=== PATIENT | female | born 1930 | race Caucasian/White ===

== ENCOUNTER 2017-02-25 20:02 | Inpatient (IN) | payer MEDICARE, OTHER, MEDICAID ==
--- NOTE | 2017-02-25 20:11 | EDM.PDOC ---
ED HPI GENERAL MEDICAL PROBLEM - General Stated Complaint: ASPARATION Time Seen by Provider: 02/25/17 20:03 Source of Information: Reports: EMS, Custodial Records History Limitations: Reports: Respiratory Distress - History of Present Illness INITIAL COMMENTS - FREE TEXT/NARRATIVE: This is an 87-year-old female. She comes from a long term and [place]. Apparently tonight one of the family was trying to get her to drink through a straw some water and she aspirated this occurred around 6:30 PM. Since that time she's been having increasing respiratory distress with wheezing and some mild stridor. She has a gastric tube that she is fed by and really is not to have any by mouth fluids. She is on a simple mask at 6 L/m and her pulse ox is 98% but she is obviously struggling to breathe. According to EMS she is a DNR. Patient can tell me that she is having a hard time breathing but she can't add much to the history at this time. - Related Data Allergies Allergy/AdvReac Type Severity Reaction Status Date / Time amoxicillin [From Augmentin] Allergy Other Verified 02/25/17 20:13 clavulanic acid Allergy Other Verified 02/25/17 20:13 [From Augmentin] Home Meds: Home Meds Acetaminophen 325 mg PO Q4HR PRN 02/25/17 [History] Amino Ac/Protein Hydr/Whey Pro [Prosource Tf Liquid Packet] 1 oz .ROUTE BEDTIME 02/25/17 [History] Amiodarone [Cordarone] 200 mg GTUBE DAILY 02/25/17 [History] Aspirin 81 mg GTUBE DAILY 02/25/17 [History] Bisacodyl [Dulcolax] 10 mg RECTAL ASDIRECTED PRN 02/25/17 [History] Clopidogrel [Plavix] 75 mg GTUBE DAILY 02/25/17 [History] Dimethicone/Colloidal Oatmeal [Aveeno Daily Moisturizing Lot] 1 dose TOP ASDIRECTED 02/25/17 [History] Docusate Sodium [Diocto] 10 ml GTUBE BID 02/25/17 [History] Gabapentin 100 mg PO BEDTIME 02/25/17 [History] Lactose-Reduced Food/Fiber [Isosource 1.5 Marcello Liquid] 250 ml GTUBE TID 02/25/17 [History] Lidocaine HCl [Aspercreme] 1 dose TOP BID PRN 02/25/17 [History] Magnesium Hydroxide [Milk of Magnesia] 30 ml GTUBE ASDIRECTED PRN 02/25/17 [ History] Menthol/Zinc Oxide [Calmoseptine] 1 dose TOP ASDIRECTED PRN 02/25/17 [History] Metoprolol Tartrate 100 mg GTUBE BID 02/25/17 [History] Mupirocin Cream [Bactroban Crm] 1 dose TOP ASDIRECTED PRN 02/25/17 [History] Nystatin [Nyamyc] 1 dose TOP ASDIRECTED PRN 02/25/17 [History] Ondansetron [Zofran] 8 mg GTUBE ASDIRECTED PRN 02/25/17 [History] Triamcinolone Acetonide [Triamcinolone Acetonide 0.1% Crm] 1 dose TOP BID [History] Trolamine Salicylate [Aspercreme] 1 dose TOP ASDIRECTED PRN 02/25/17 [History] atorvaSTATin [Lipitor] 10 mg GTUBE DAILY 02/25/17 [History] cloNIDine [Catapres] 0.2 mg GTUBE BID 02/25/17 [History] ED ROS GENERAL - Review of Systems Review Of Systems: Unable To Obtain Respiratory: Reports: Shortness of Breath, Wheezing ED EXAM, GENERAL - Physical Exam Exam: See Below Exam Limited By: Respiratory Distress General Appearance: Alert, Moderate Distress, Other (Patient appears to be chronically ill) Ears: Normal External Exam Nose: Normal Inspection Throat/Mouth: No: No Airway Compromise Head: Atraumatic Neck: Other (Listening to the neck it appears that most of her noise that she is making when she breathes is coming from the larynx area as in mild stridor) Respiratory/Chest: Respiratory Distress, Stridor, Retractions, Other (Noted to have normal breath sounds in the right apex with some mild crackles in the left apex and crackles in the left base and decreased breath sounds in the right base , she is attempting to use accessory muscles and she uses her abdomen to exhale , with exhaling she does have some mild stridor noted) Cardiovascular: Regular Rate, Rhythm GI/Abdominal: Soft, Other (Noted gastric tube in the abdomen) Extremities: Other (She is noted to have an AKA of the left lower extremity, her right lower extremity shows chronic vascular changes, her extremities are cool to touch) Neurological: Alert Psychiatric: Anxious Skin Exam: Cool Course - Vital Signs Last Recorded V/S: Last Vital Signs Temp 95.4 F 02/25/17 20:05 Pulse 93 02/25/17 20:05 Resp 36 H 02/25/17 20:05 BP 99/89 02/25/17 20:05 Pulse Ox 99 02/25/17 20:05 - Orders/Labs/Meds Orders: Active Orders 24 hr Category Date Time Status CXR [Chest 1V Frontal] [CR] Stat Exams 02/25/17 20:03 Taken BiPAP [RESPCARE] Urgent Oth 02/25/17 20:15 Active Labs: Laboratory Tests 02/25/17 02/25/17 Range/Units 20:08 20:08 WBC 14.18 H (3.98-10.04) K/mm3 RBC 4.44 (3.98-5.22) M/mm3 Hgb 14.8 (11.2-15.7) gm/L Hct 43.7 (34.1-44.9) % MCV 98.4 H (79.4-94.8) fl MCH 33.3 H (25.6-32.2) pg MCHC 33.9 (32.2-35.5) g/dl RDW Std Deviation 57.0 H (36.4-46.3) fL Plt Count 198 (182-369) K/mm3 MPV 11.6 (9.4-12.3) fl Neut % (Auto) 81.1 H (34.0-71.1) % Lymph % (Auto) 8.7 L (19.3-51.7) % [place] % (Auto) 9.4 (4.7-12.5) % Eos % (Auto) 0.5 L (0.7-5.8) Baso % (Auto) 0.1 (0.1-1.2) % Neut # (Auto) 11.49 H (1.56-6.13) K/mm3 Lymph # (Auto) 1.23 (1.18-3.74) K/mm3 [place] # (Auto) 1.34 H (0.24-0.36) K/mm3 Eos # (Auto) 0.07 (0.04-0.36) K/mm3 Baso # (Auto) 0.02 (0.01-0.08) K/mm3 Manual Slide Review Abnormal smear Sodium 133 L (136-145) mEq/L Potassium 4.9 (3.5-5.1) mEq/L Chloride 99 (98-107) mEq/L Carbon Dioxide 25 (21-32) mEq/L Anion Gap 13.9 (5-15) BUN 28 H (7-18) mg/dL Creatinine 1.1 H (0.55-1.02) mg/dL Est Cr Clr Drug Dosing 26.86 mL/min Estimated GFR (MDRD) 47 (>60) mL/min BUN/Creatinine Ratio 25.5 H (14-18) Glucose 221 H (83-115) mg/dL Calcium 9.9 (8.5-10.1) mg/dL Total Bilirubin 0.6 (0.2-1.0) mg/dL AST 26 (15-37) U/L ALT 31 (14-59) U/L Alkaline Phosphatase 102 (46-116) U/L Total Protein 8.4 H (6.4-8.2) g/dl Albumin 2.9 L (3.4-5.0) g/dl Globulin 5.5 gm/dL Albumin/Globulin Ratio 0.5 L (1-2) Meds: Medications Discontinued Medications Generic Name Dose Route Start Last Admin Trade Name Freq PRN Reason Stop Dose Admin Ceftriaxone Sodium 1 gm/ 100 mls @ 200 mls/hr 02/25/17 21:13 02/25/17 21:42 Sodium Chloride IV 02/25/17 21:42 200 mls/hr ONETIME ONE Administration - Re-Assessments/Exams Free Text/Narrative Re-Assessment/Exam: 02/25/17 21:21 I spoke to the family which includes 3 sons regarding the patient. I believe she has some mild aspiration in the right lower lung by x-ray. The BiPAP has done wonders as far as her stridor and difficulty in breathing she seems much more at ease at this time. I spoke to Dr. Tran and he is willing to admit the patient for further evaluation and treatment due to aspiration pneumonia. 02/25/17 21:22 I did speak to the 3 sons regarding her admission. They confirm that she is a DNR. Departure - Departure Time of Disposition: :22 Disposition: Admitted As Inpatient 68 Condition: Poor Clinical Impression: Hypoxemia requiring supplemental oxygen, Shortness of breath, Stridor Aspiration pneumonia Qualifiers: Aspiration pneumonia type: unspecified Laterality: right Lung location: lower lobe of lung Qualified Code(s): J69.0 - Pneumonitis due to inhalation of food and vomit - Discharge Information ED Communication - ED Communication Date/Time Date: 02/25/17 Time Called: 21:25 - Discussed Case With (1) Discussed Case With (1): Admitting Provider Person/s Notified (1): Alfreda Tran (He will admit) - My Orders Last 24 Hours: My Active Orders 02/25/17 20:03 CXR [Chest 1V Frontal] [CR] Stat 02/25/17 20:15 BiPAP [RESPCARE] Urgent - Assessment/Plan Last 24 Hours: My Active Orders 02/25/17 20:03 CXR [Chest 1V Frontal] [CR] Stat 02/25/17 20:15 BiPAP [RESPCARE] Urgent
[2017-02-25] MEDS ORDERED: cefTRIAXone 1 GM in Sodium Chloride 0.9% 100 ML IV ONE (21:13)
[2017-02-25] MEDS ORDERED: Albuterol/Ipratropium 3.0-0.5 MG/3 ML Neb Soln ONE (22:59)
--- NOTE | 2017-02-25 23:10 | PCM.HP ---
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 Per second sources, a family member was trying to get the patient to drink/feed but she is NPO and then went on to develop acute aspiration. On presentation to the emergency department, she has increasing respiratory distress with wheezing and noted mild stridor. At that time she was on simple mask at 6 L and with an pulse ox of 98% but still struggling to breathe. Her initial workup in emergency department shows a CBC remarkable for WBC of 14.18, neutrophils of 81.1%, lymphocytes of 87.7%, and eosinophils of 0.5%. Her chemistry is significant for sodium of 133, BUN of 28, creatinine of 1.1, glucose of 221, total protein of 8.4, and albumin of 2.9. Her chest x-ray showed increased lung markings on the right but no obvious infiltrates with pending final radiology report. Patient is being admitted for aspiration syndrome. She is currently on BiPAP for treatment of her respiratory distress. She is DNR and DNI. - Related Data Allergies/Adverse Reactions: Allergies Allergy/AdvReac Type Severity Reaction Status Date / Time amoxicillin [From Augmentin] Allergy Other Verified 02/25/17 20:13 clavulanic acid Allergy Other Verified 02/25/17 20:13 [From Augmentin] Home Medications: Home Meds Acetaminophen 325 mg PO Q4HR PRN 02/25/17 [History] Amino Ac/Protein Hydr/Whey Pro [Prosource Tf Liquid Packet] 1 oz .ROUTE BEDTIME 02/25/17 [History] Amiodarone [Cordarone] 200 mg GTUBE DAILY 02/25/17 [History] Aspirin 81 mg GTUBE DAILY 02/25/17 [History] Bisacodyl [Dulcolax] 10 mg RECTAL ASDIRECTED PRN 02/25/17 [History] Clopidogrel [Plavix] 75 mg GTUBE DAILY 02/25/17 [History] Dimethicone/Colloidal Oatmeal [Aveeno Daily Moisturizing Lot] 1 dose TOP ASDIRECTED 02/25/17 [History] Docusate Sodium [Diocto] 10 ml GTUBE BID 02/25/17 [History] Gabapentin 100 mg PO BEDTIME 02/25/17 [History] Lactose-Reduced Food/Fiber [Isosource 1.5 Marcello Liquid] 250 ml GTUBE TID 02/25/17 [History] Lidocaine HCl [Aspercreme] 1 dose TOP BID PRN 02/25/17 [History] Magnesium Hydroxide [Milk of Magnesia] 30 ml GTUBE ASDIRECTED PRN 02/25/17 [ History] Menthol/Zinc Oxide [Calmoseptine] 1 dose TOP ASDIRECTED PRN 02/25/17 [History] Metoprolol Tartrate 100 mg GTUBE BID 02/25/17 [History] Mupirocin Cream [Bactroban Crm] 1 dose TOP ASDIRECTED PRN 02/25/17 [History] Nystatin [Nyamyc] 1 dose TOP ASDIRECTED PRN 02/25/17 [History] Ondansetron [Zofran] 8 mg GTUBE ASDIRECTED PRN 02/25/17 [History] Triamcinolone Acetonide [Triamcinolone Acetonide 0.1% Crm] 1 dose TOP BID [History] Trolamine Salicylate [Aspercreme] 1 dose TOP ASDIRECTED PRN 02/25/17 [History] atorvaSTATin [Lipitor] 5 mg GTUBE DAILY 02/25/17 [History] cloNIDine [Catapres] 0.2 mg GTUBE BID 02/25/17 [History] Past Medical History Cardiovascular History: Reports: Afib, Heart Failure, High Cholesterol, Hypertension, Other (See Below) Other Cardiovascular History: sick sinus syndrome Gastrointestinal History: Reports: Chronic Constipation, GERD Genitourinary History: Reports: UTI, Recurrent, Other (See Below) Other Genitourinary History: dysuria Musculoskeletal History: Reports: Back Pain, Chronic Neurological History: Reports: CVA Psychiatric History: Reports: Depression - Past Surgical History Musculoskeletal Surgical History: Reports: Amputation Other Musculoskeletal Surgeries/Procedures:: left above knee amputation Social & Family History - Tobacco Use Smoking Status *Q: Unknown Ever Smoked - Caffeine Use Caffeine Use: Reports: None H&P Review of Systems - Review of Systems: Review Of Systems: See Below General: Denies: Fever, Chills, Malaise, Weakness, Fatigue HEENT: Reports: No Symptoms Pulmonary: Reports: Shortness of Breath, Wheezing, Cough Cardiovascular: Denies: Chest Pain, Palpitations, Lightheadedness Gastrointestinal: Denies: Abdominal Pain, Nausea, Vomiting Genitourinary: Reports: No Symptoms Musculoskeletal: Reports: No Symptoms Skin: Denies: Cyanosis, Mottled, Diaphoresis, Rash, Wound Psychiatric: Denies: Confusion, Depression, Mood Lability, Anxiety, Hallucinations, Suicidal Ideation Neurological: Denies: Confusion, Pre-Existing Deficit, Difficulty Walking, Weakness, Gait Disturbance Hematologic/Lymphatic: Denies: No Symptoms Immunologic: Denies: No Symptoms Review of Systems Comment:: ROS obtained from secondary sources. She is currently on BIPAP due to respiratory distress. Exam - Exam Exam: See Below - Vital Signs Vital Signs: Last Vital Signs Temp 35.2 C 02/25/17 20:05 Pulse 93 02/25/17 20:05 Resp 36 H 02/25/17 20:05 BP 99/89 02/25/17 20:05 Pulse Ox 100 02/25/17 22:18 Weight: 72.575 kg - Exam Quality Assessment: Other (on BIPAP) General: Alert, Mild Distress HEENT: Conjunctiva Clear, EACs Clear, Hearing Intact, Pupils Equal, Pupils Reactive Neck: Supple, Trachea Midline, +2 Carotid Pulse wo Bruit, Other (No accessory muscle use) Lungs: Normal Respiratory Effort, Decreased Breath Sounds, Wheezing, Other ( Could not appreciate stridor) Cardiovascular: Regular Rate, Regular Rhythm GI/Abdominal Exam: Normal Bowel Sounds, Soft, Non-Tender, No Organomegaly, No Distention, No Abnormal Bruit, No Mass (Female) Exam: Deferred Rectal (Female) Exam: Deferred Back Exam: Normal Inspection, Decreased Range of Motion Extremities: Normal Range of Motion, Non-Tender, Normal Capillary Refill, Limited Range of Motion (Right), Other (Left AKA w/ Prosthesis; Right lower extremity noted for skin and vascualr changes) Peripheral Pulses: 2+: Dorsalis Pedis (L), Dorsalis Pedis (R) Skin: Warm, Dry, Intact Neuro Extensive - Mental Status: Other (She is currently on BIPAP) Psychiatric: Alert, Normal Mood Physical Exam Comments:: Limited physical examination. She is currently on BIPAP due to respiratory distress - Patient Data Result Diagrams: 02/26/17 08:30 02/26/17 06:33 *Q Meaningful Use (ADM) - VTE *Q VTE Criteria *Q: - Stroke *Q Stroke Criteria *Q: - AMI *Q AMI Criteria *Q: Problem List Initiated/Reviewed/Updated: Yes Orders Last 24hrs: Active Orders 24 hr Category Date Time Status Admission Status [Patient Status] [ADT] Routine ADT 02/25/17 22:16 Active Assessment/Plan Comment:: Assessment/Plan: Acute: Aspiration Syndrome - patient has Dysphagia and was given something to drink by a family member - Went into respiratory distress - Currently on BIPAP - [employer] eval and NPO - IV ATB with Rocephin/Azithromycin Pre-Renal Azotemia - Mild - IV Hydration - Monitor output and follow renal panel NPO Status 2/2 Dysphagia Chronic: Atrial Fibrillation, on DAPT HTN HLD CAD GERD Hx/o SSS Left AKA Chronic Pain PVD Dysphagia S/p GT Placement Constipation Plan: Admit to Med-Surg Routine AM Labs Resume Home Meds Consider removing BIPAP NPO and Tube feed as per PA [employer]ENT[employer]/RT/PT/OT consult SW/CM for d/c planning Aspiration/Fall Precautions DVT PPx: Lovenox subQ Code Status: DNR/DNI
[2017-02-25] MEDS ORDERED: Acetaminophen/HYDROcodone 325-5 MG Tab GTUBE PRN (23:13)
[2017-02-25] MEDS ORDERED: Acetaminophen 325 MG Tab GTUBE PRN ×2 (23:13→23:18)
[2017-02-25] MEDS ORDERED: HYDROmorphone 0.5 MG/0.5 ML Syringe IVPUSH PRN (23:13)
[2017-02-25] MEDS ORDERED: Ondansetron 4 MG/2 ML SDV IV PRN (23:13)
[2017-02-25] MEDS ORDERED: LORazepam 2 MG/ML MDV IV PRN (23:13)
[2017-02-25] MEDS ORDERED: Promethazine 12.5 MG in Sodium Chloride 0.9% 50 ML IV PRN (23:13)
[2017-02-25] MEDS ORDERED: Ondansetron 4 MG Tab.DIS GTUBE PRN (23:18)
[2017-02-25] MEDS ORDERED: MUPIROCIN TOP PRN (23:18)
[2017-02-25] MEDS ORDERED: Menthol/Zinc Oxide Ointment 3.5 GM Tube TOP PRN (23:18)
[2017-02-25] MEDS ORDERED: TROLAMINE SALICYLATE TOP PRN (23:18)
[2017-02-25] MEDS ORDERED: LIDOCAINE HCL TOP PRN (23:18)
[2017-02-25] MEDS ORDERED: Nystatin Topical Powder 15 GM Bottle TOP PRN (23:18)
[2017-02-25] MEDS ORDERED: Bisacodyl 10 MG Supp RECTAL PRN (23:18)
[2017-02-25] MEDS ORDERED: Magnesium Hydroxide 400 MG/5 ML Susp 30 ML Cup GTUBE PRN (23:18)
[2017-02-25] MEDS ORDERED: Metoprolol Tartrate 5 MG/5 ML SDV IVPUSH PRN (23:23)
[2017-02-25] MEDS ORDERED: hydrALAZINE 20 MG/ML SDV IVPUSH PRN (23:23)
[2017-02-25] MEDS ORDERED: LORazepam 2 MG/ML MDV IVPUSH PRN (23:23)
[2017-02-25] MEDS ORDERED: Azithromycin 500 MG in Sodium Chloride 0.9% 250 ML IV ONE (23:26)
[2017-02-25] MEDS ORDERED: COLLOIDAL OATMEAL TOP SCH (23:30)
[2017-02-25] MEDS ORDERED: DIMETHICONE TOP SCH (23:30)
[2017-02-26] MEDS: Dextrose 5%-0.45% NaCl 1,000 ML IV SCH ×2 (00:31→09:07)
[2017-02-26] MEDS: Albuterol/Ipratropium 3.0-0.5 MG/3 ML Neb Soln NEB PRN ×3 (06:20→21:48)
--- NOTE | 2017-02-26 07:59 | PCM.PN ---
- General Info Date of Service: 02/26/17 Admission Dx/Problem (Free Text): Admission Diagnosis/Problem Admission Diagnosis/Problem Aspiration pneumonia Subjective Update: Follow Up Functional Status: Reports: Pain Controlled, Urinating. Denies: New Symptoms - Review of Systems General: Denies: Fever, Weakness, Fatigue, Malaise HEENT: Reports: No Symptoms Pulmonary: Denies: Shortness of Breath Cardiovascular: Denies: Chest Pain Gastrointestinal: Denies: Abdominal Pain, Nausea, Vomiting Genitourinary: Reports: No Symptoms Skin: Denies: Cyanosis, Jaundice, Mottled, Pallor Neurological: Reports: Difficulty Walking, Gait Disturbance. Denies: Confusion , Weakness Psychiatric: Denies: Depression, Mood Lability, Anxiety, Agitation, Cravings, Hallucinations, Suicidal Ideation Systems Review Comment:: No significant overnight or acute issues. She wants to go home now. [employer] eileen just completed. She is now on 1L NC sating at 92-95% - Patient Data Vitals - Most Recent: Last Vital Signs Temp 36.7 C 02/26/17 04:10 Pulse 81 02/26/17 04:10 Resp 24 H 02/26/17 04:10 BP 107/49 L 02/26/17 04:10 Pulse Ox 99 02/26/17 06:20 Weight - Most Recent: 72.575 kg I&O - Last 24 Hours: Intake & Output 02/25/17 02/26/17 02/26/17 22:59 06:59 14:59 Intake Total 706 Balance 706 Lab Results Last 24 Hours: Laboratory Results - last 24 hr 02/25/17 Range/Units 23:09 MRSA (PCR) Positive H Med Orders - Current: Current Medications Acetaminophen (Tylenol) 650 mg GTUBE Q4H PRN PRN Reason: Pain (Mild 1-3)/fever Acetaminophen (Tylenol) 325 mg GTUBE Q4H PRN PRN Reason: Pain Hydrocodone Bitart/Acetaminophen (Hardaway 325-5 Mg) 1 tab GTUBE Q4H PRN PRN Reason: Pain (moderate 4-6) Albuterol/Ipratropium (Duoneb 3.0-0.5 Mg/3 Ml) 3 ml NEB Q4H PRN PRN Reason: Shortness Of Breath/wheezing Last Admin: 02/26/17 06:20 Dose: 3 ml Amiodarone HCl (Cordarone) 200 mg GTUBE DAILY [facility] Aspirin (Aspirin) 81 mg GTUBE DAILY [facility] Bisacodyl (Dulcolax) 10 mg RECTAL ASDIRECTED PRN PRN Reason: Constipation Clonidine HCl (Catapres) 0.2 mg GTUBE BID [facility] Clopidogrel Bisulfate (Plavix) 75 mg .XX DAILY [facility] Docusate Sodium (Colace 50 Mg/5 Ml Liquid) 100 mg GTUBE BID [facility] Enoxaparin Sodium (Lovenox) 30 mg SUBCUT DAILY [facility] Gabapentin (Neurontin) 100 mg GTUBE BEDTIME [facility] Hydralazine HCl (Apresoline) 10 mg IVPUSH Q4H PRN PRN Reason: Hypertension Hydromorphone HCl (Dilaudid) 0.25 mg IVPUSH Q2H PRN PRN Reason: Pain (severe 7-10) Dextrose/Sodium Chloride (Dextrose 5%-1/2 Ns) 1,000 mls @ 125 mls/hr IV ASDIRECTED [facility] Last Admin: 02/26/17 00:31 Dose: 125 mls/hr Promethazine HCl 12.5 mg/ (Sodium Chloride) 50.5 mls @ 100 mls/hr IV Q6H PRN PRN Reason: Nausea/Vomiting Azithromycin 500 mg/ Sodium (Chloride) 250 mls @ 250 mls/hr IV Q24H [facility] Ceftriaxone Sodium 1 gm/ (Sodium Chloride) 100 mls @ 200 mls/hr IV Q24H [facility] Lorazepam (Ativan) 0.5 mg IV Q4H PRN PRN Reason: Anxiety Lorazepam (Ativan) 2 mg IVPUSH Q4H PRN PRN Reason: Seizures Magnesium Hydroxide (Milk Of Magnesia) 30 ml GTUBE ASDIRECTED PRN PRN Reason: Constipation Magnesium Sulfate (Pharmacy To Dose - Magnesium Replacement) 1 dose .XX ASDIRECTED [facility] Metoprolol Tartrate (Lopressor) 100 mg GTUBE BID [facility] Metoprolol Tartrate (Lopressor) 5 mg IVPUSH Q4H PRN PRN Reason: Tachycardia Non-Formulary Medication (Amino Ac/Protein Hydr/Whey Pro [Prosource Tf Liquid Packet]) 1 oz .ROUTE BEDTIME [facility] Non-Formulary Medication (Dimethicone/Colloidal Oatmeal [Aveeno Daily Moisturizing Lot]) 1 dose TOP ASDIRECTED [facility] Non-Formulary Medication (Lactose-Reduced Food/Fiber [Isosource 1.5 Marcello Liquid] ) 250 ml GTUBE TID [facility] Non-Formulary Medication (Lidocaine Hcl [Aspercreme]) 1 dose TOP BID PRN PRN Reason: Other Non-Formulary Medication (Menthol/Zinc Oxide) 1 dose TOP ASDIRECTED PRN PRN Reason: Other Non-Formulary Medication (Mupirocin Cream) 1 dose TOP ASDIRECTED PRN PRN Reason: Other Non-Formulary Medication (Ondansetron) 8 mg GTUBE ASDIRECTED PRN PRN Reason: nausea Non-Formulary Medication (Trolamine Salicylate [Aspercreme]) 1 dose TOP ASDIRECTED PRN PRN Reason: Pain Nystatin (Nystop) gm TOP ASDIRECTED PRN PRN Reason: Rash Ondansetron HCl (Zofran) 4 mg IV Q6H PRN PRN Reason: Nausea/Vomiting Pantoprazole Sodium (Protonix Iv) 40 mg IV Q12HR [facility] Potassium Chloride (Pharmacy To Dose - Potassium Replacement) 1 dose .XX ASDIRECTED [facility] Simvastatin (Zocor) 10 mg GTUBE BEDTIME [facility] Triamcinolone Acetonide (Triamcinolone Acetonide 0.1% Crm) 0 gm TOP BID [facility] Discontinued Medications Albuterol/Ipratropium (Duoneb 3.0-0.5 Mg/3 Ml) Confirm Administered Dose 3 ml .ROUTE .STK-MED ONE Stop: 02/25/17 23:00 Last Admin: 02/25/17 23:07 Dose: 3 ml Ceftriaxone Sodium 1 gm/ (Sodium Chloride) 100 mls @ 200 mls/hr IV ONETIME ONE Stop: 02/25/17 21:42 Last Admin: 02/25/17 21:42 Dose: 200 mls/hr Azithromycin 500 mg/ Sodium (Chloride) 250 mls @ 250 mls/hr IV ONETIME ONE Stop: 02/26/17 00:25 Last Admin: 02/26/17 00:31 Dose: 250 mls/hr - Exam Quality Assessment: Supplemental Oxygen General: Alert, Cooperative, No Acute Distress HEENT: Pupils Equal, Pupils Reactive, Mucous Membr. Moist/[place] Neck: Supple, Trachea Midline Lungs: Normal Respiratory Effort, Decreased Breath Sounds, Rales Cardiovascular: Regular Rate, Regular Rhythm GI/Abdominal Exam: Normal Bowel Sounds, Soft, Non-Tender, No Organomegaly, No Distention, No Mass, Pelvis Stable, Rebound (Female) Exam: Deferred Back Exam: Normal Inspection, Decreased Range of Motion Extremities: Normal Range of Motion, Non-Tender, Normal Capillary Refill, Other (left AKA) Peripheral Pulses: 1+: Posterior Tibial (R), 2+: Dorsalis Pedis (R) Skin: Warm, Dry, Intact Neurological: No New Focal Deficit. No: Normal Gait Psy/Mental Status: Alert, Normal Affect, Normal Mood - Problem List Review Problem List Initiated/Reviewed/Updated: Yes - My Orders Last 24 Hours: My Active Orders 02/25/17 23:13 Height and Weight [RC] DAILY Intake and Output [RC] Oxygen Therapy [RC] PRN Up With Assistance [RC] Up ad Eleanor [RC] VTE/DVT Education [RC] PER UNIT ROUTINE Vital Signs [RC] Q4HR Acetaminophen [Tylenol] 650 mg GTUBE Q4H PRN Acetaminophen/HYDROcodone [Hardaway 325-5 MG] 1 tab GTUBE Q4H PRN Albuterol/Ipratropium [DuoNeb 3.0-0.5 MG/3 ML] 3 ml NEB Q4H PRN HYDROmorphone [Dilaudid] 0.25 mg IVPUSH Q2H PRN LORazepam [Ativan] 0.5 mg IV Q4H PRN Ondansetron [Zofran] 4 mg IV Q6H PRN Promethazine [Phenergan] 12.5 mg Sodium Chloride 0.9% [Normal Saline] 50 ml IV Q6H Resuscitation Status Routine 02/25/17 23:14 Pulse Oximetry [RC] PRN 02/25/17 23:15 Dextrose 5%-0.45% NaCl [Dextrose 5%-1/2 NS] 1,000 ml IV ASDIRECTED 02/25/17 23:16 RT Aerosol Therapy [RC] ASDIRECTED 02/25/17 23:17 Consult to Case Management [CONS] Routine Consult to [employer]p Sales [CONS] Routine Consult to Spiritual Care [CONS] Routine OT Evaluation and Treatment [CONS] Routine PT Evaluation and Treatment [CONS] Routine Respiratory Care Assess and Treatment [CONS] Routine [employer]CE[employer]PORT [employer]ENT Evaluation and Treatment [CONS] Routine 02/25/17 23:18 Acetaminophen [Tylenol] 325 mg GTUBE Q4H PRN Bisacodyl [Dulcolax] 10 mg RECTAL ASDIRECTED PRN Lidocaine HCl [Aspercreme] 1 dose TOP BID PRN Magnesium Hydroxide [Milk of Magnesia] 30 ml GTUBE ASDIRECTED PRN Menthol/Zinc Oxide 1 dose TOP ASDIRECTED PRN Mupirocin Cream 1 dose TOP ASDIRECTED PRN Nystatin [Nystop] DOSE gm TOP ASDIRECTED PRN Ondansetron 8 mg GTUBE ASDIRECTED PRN Trolamine Salicylate [Aspercreme] 1 dose TOP ASDIRECTED PRN 02/25/17 23:23 LORazepam [Ativan] 2 mg IVPUSH Q4H PRN Metoprolol Tartrate [Lopressor] 5 mg IVPUSH Q4H PRN hydrALAZINE [Apresoline] 10 mg IVPUSH Q4H PRN 02/25/17 23:25 IS (RT) [RT Incentive Spirometry] [RC] ASDIRECTED 02/25/17 23:30 Dimethicone/Colloidal Oatmeal [Aveeno Daily Moisturizing Lot] 1 dose TOP ASDIRECTED Magnesium Rep Pharmacy to Dose [Pharmacy to Dose - Magnesium Replacement] 1 dose .XX ASDIRECTED Potassium Rep Pharmacy to Dose [Pharmacy to Dose - Potassium Replacement] 1 dose .XX ASDIRECTED 02/25/17 Dinner Nothing per Oral Now Diet [DIET] 02/26/17 06:33 BASIC METABOLIC PANEL,BMP [CHEM] AM C-REACTIVE PROTEIN [CHEM] AM CBC WITH AUTO DIFF [HEME] AM MAGNESIUM [CHEM] AM 02/26/17 09:00 Amiodarone [Cordarone] 200 mg GTUBE DAILY Aspirin 81 mg GTUBE DAILY Clopidogrel [Plavix] 75 mg .XX DAILY Docusate Sodium [Colace 50 MG/5 ML Liquid] 100 mg GTUBE BID Enoxaparin [Lovenox] 30 mg SUBCUT DAILY Lactose-Reduced Food/Fiber [Isosource 1.5 Marcello Liquid] 250 ml GTUBE TID Metoprolol Tartrate [Lopressor] 100 mg GTUBE BID Pantoprazole [ProTONIX IV] 40 mg IV Q12HR Triamcinolone Acetonide [Triamcinolone Acetonide 0.1% Crm] 0 gm TOP BID cloNIDine [Catapres] 0.2 mg GTUBE BID 02/26/17 20:00 Azithromycin [Zithromax] 500 mg Sodium Chloride 0.9% [Normal Saline] 250 ml IV Q24H 02/26/17 21:00 Amino Ac/Protein Hydr/Whey Pro [Prosource Tf Liquid Packet] 1 oz .ROUTE BEDTIME Gabapentin [Neurontin] 100 mg GTUBE BEDTIME Simvastatin [Zocor] 10 mg GTUBE BEDTIME cefTRIAXone [Rocephin] 1 gm Sodium Chloride 0.9% [Normal Saline] 100 ml IV Q24H 02/26/17 Breakfast Tube Feeding Adult Diet [DIET] 02/27/17 05:11 BASIC METABOLIC PANEL,BMP [CHEM] AM C-REACTIVE PROTEIN [CHEM] AM CBC WITH AUTO DIFF [HEME] AM 02/28/17 05:11 BASIC METABOLIC PANEL,BMP [CHEM] AM C-REACTIVE PROTEIN [CHEM] AM CBC WITH AUTO DIFF [HEME] AM - Plan Plan:: Assessment/Plan: Acute: Aspiration Syndrome - Patient has Dysphagia and was given something to drink by a family member - Went into respiratory distress - She is no longer on BIPAP - [employer] eval done: She recommends continued NPO - IV ATB with Rocephin/Azithromycin NPO Status 2/2 Dysphagia MRSA Screening Positive - Bactroban top apply to nares BID for 5 days Resolved Pre-Renal Azotemia - Mild and now at baseline - IV Hydration - Monitor output and follow renal panel Chronic: Atrial Fibrillation, on DAPT HTN HLD CAD GERD Hx/o SSS Left AKA Chronic Pain PVD Dysphagia S/p GT Placement Constipation Plan: She is clinically stable Routine AM Labs Continue /PT/OT SW/CM for d/c planning Aspiration/Fall Precautions DVT PPx: Lovenox subQ Code Status: DNR/DNI Possible d/c in 1-2 days
[2017-02-26] MEDS ORDERED: Docusate Sodium Liquid 100 MG/10 ML UD Cup GTUBE SCH (09:00)
[2017-02-26] MEDS ORDERED: cefTRIAXone 1 GM in Sodium Chloride 0.9% 100 ML IV SCH ×2 (09:00→21:00)
[2017-02-26] MEDS ORDERED: Non-Formulary Medication 1 Each (Atorvastatin 10 MG) GTUBE SCH (09:00)
[2017-02-26] MEDS ORDERED: Magnesium Sulfate/Water 2 GM in Premix Bag 1 BAG IV ONE (10:00)
[2017-02-26] MEDS: Enoxaparin 30 MG/0.3 ML Syringe SUBCUT SCH (10:10)
[2017-02-26] MEDS: Pantoprazole 40 MG Vial IV SCH ×2 (10:15→20:12)
[2017-02-26] MEDS ORDERED: Dextrose 5%-0.9% NaCl 500 ML IV SCH (14:15)
[2017-02-26] MEDS: Amiodarone 200 MG Tab GTUBE SCH (16:24)
[2017-02-26] MEDS: Metoprolol Tartrate 100 MG Tab GTUBE SCH ×2 (16:24→20:11)
[2017-02-26] MEDS: Aspirin 81 MG Tab.Chew GTUBE SCH (16:24)
[2017-02-26] MEDS: cloNIDine 0.1 MG Tab GTUBE SCH ×2 (16:24→20:11)
[2017-02-26] MEDS: Clopidogrel 75 MG Tab SCH (16:24)
[2017-02-26] MEDS: MUPIROCIN NAS SCH ×2 (17:15→20:10)
[2017-02-26] MEDS: Triamcinolone Acetonide 0.1% Crm 15 GM Tube TOP SCH ×2 (17:16→20:12)
[2017-02-26] MEDS ORDERED: Azithromycin 500 MG in Sodium Chloride 0.9% 250 ML IV SCH (20:00)
[2017-02-26] MEDS: Docusate Sodium 100 MG Cap SCH (20:11)
[2017-02-26] MEDS ORDERED: WHEY PRO GTUBE SCH (21:00)
[2017-02-26] MEDS ORDERED: AMINO AC GTUBE SCH (21:00)
[2017-02-26] MEDS ORDERED: Simvastatin 10 MG Tab GTUBE SCH (21:00)
[2017-02-26] MEDS ORDERED: Gabapentin 100 MG Cap GTUBE SCH (21:00)
[2017-02-26] MEDS ORDERED: PROTEIN HYDR GTUBE SCH (21:00)
--- NOTE | 2017-02-26 23:58 | PCM.DCSUM1 ---
Discharge Summary - Hospital Course Brief History: This is an 87-year-old elderly white female with past medical history of tonic atrial fibrillation on aspirin and Plavix, hypertension, hyperlipidemia, coronary artery disease, GERD, history of sick sinus syndrome, left [id number] amputation, chronic pain syndrome, peripheral vascular disease, dysphagia, status post G-tube placement, and chronic constipation, who presents to the emergency department from [facility] due to acute respiratory distress. She was admitted for medical management of Aspiration Pneumonitis - Discharge Data Discharge Date: 02/27/17 Discharge Disposition: DC/Tfer to [facility] Condition: Good - Discharge Diagnosis/Problem(s) (1) Respiratory distress SNOMED Code(s): 982194163 ICD Code: R06.00 - DYSPNEA, UNSPECIFIED Status: Resolved (2) Aspiration into airway SNOMED Code(s): 830496896 ICD Code: T17.908A - UNSP FB IN RESP TRACT, PART UNSP CAUSING OTH INJURY, INIT Status: Acute Qualifiers: Encounter type: initial encounter Qualified Code(s): T17.908A - Unspecified foreign body in respiratory tract, part unspecified causing other injury, initial encounter (3) Dysphagia SNOMED Code(s): 46478797, 905489983 ICD Code: R13.10 - DYSPHAGIA, UNSPECIFIED Status: Chronic Qualifiers: Dysphagia type: unspecified Qualified Code(s): R13.10 - Dysphagia, unspecified (4) Positive result for methicillin resistant Staphylococcus aureus (MRSA) screening SNOMED Code(s): 945960665 ICD Code: A49.02 - METHICILLIN RESIS STAPH INFECTION, UNSP SITE Status: Acute (5) Aspiration pneumonitis SNOMED Code(s): 849571510 ICD Code: J69.0 - PNEUMONITIS DUE TO INHALATION OF FOOD AND VOMIT Status: Acute - Patient Summary/Data Operative Procedure(s) Performed: None Complications: None Consults: Consultations 02/25/17 23:17 Consult to Case Management [CONS] Routine Consult to Simulation Engineer [CONS] Routine Consult to Spiritual Care [CONS] Routine OT Evaluation and Treatment [CONS] Routine PT Evaluation and Treatment [CONS] Routine Respiratory Care Assess and Treatment [CONS] Routine PRESSURE STEAMER TENDER Evaluation and Treatment [CONS] Routine 02/26/17 08:10 Consult to Dietary [Consult to Blender] [CONS] Routine Labs Pending at D/C: None Recommended Follow-up Testing/Procedures: None Hospital Course: Patient was primarily admitted for aspiration pneumonitis/syndrome. She carried a history of dysphagia and nothing by mouth. Unfortunately a member of her family accidentally made her take (food/drink) orally and therefore the patient aspirated and went into respiratory distress. On presentation to the emergency department, the patient was struggling to breath even though her sats were in the upper 90s. She was put on BiPAP immediately and was provided bronchodilators to improve her respiratory distress. Her hospital course was uncomplicated. The rest of her chronic medical illness remained stable during this admission. Patient is now stable for discharge. She has been on room air since yesterday satting very well. Patient was advised to not have anything in her mouth as directed. She was further advised to follow-up with her primary care in 1 week. Patient expressed understanding and in agreement with the plans as discussed above. All questions were answered. - Patient Instructions Diet: Usual Diet as Tolerated, NPO Activity: As Tolerated Driving: Do Not Drive Showering/Bathing: May Shower Notify Provider of: Fever, Increased Pain, Nausea and/or Vomiting Other/Special Instructions: - Please take all medications as directed. - You are high risk for aspiration due to dysphagia. - Resume usp NG tube feed. - Call or follow uo with your family doctor if you have any further questions or concerns right after discharge - Discharge Plan Prescriptions/Med Rec: Azithromycin [IJD: Azithromycin] 250 mg NGTUBE ASDIRECTED #6 tab Home Medications: Home Meds Acetaminophen 325 mg PO Q4HR PRN 02/25/17 [History] Amino Ac/Protein Hydr/Whey Pro [Prosource Tf Liquid Packet] 1 oz .ROUTE BEDTIME 02/25/17 [History] Amiodarone [Cordarone] 200 mg GTUBE DAILY 02/25/17 [History] Aspirin 81 mg GTUBE DAILY 02/25/17 [History] Bisacodyl [Dulcolax] 10 mg RECTAL ASDIRECTED PRN 02/25/17 [History] Clopidogrel [Plavix] 75 mg GTUBE DAILY 02/25/17 [History] Dimethicone/Colloidal Oatmeal [Aveeno Daily Moisturizing Lot] 1 dose TOP ASDIRECTED 02/25/17 [History] Docusate Sodium [Diocto] 10 ml GTUBE BID 02/25/17 [History] Gabapentin 100 mg PO BEDTIME 02/25/17 [History] Lactose-Reduced Food/Fiber [Isosource 1.5 Marcello Liquid] 250 ml GTUBE TID 02/25/17 [History] Lidocaine HCl [Aspercreme] 1 dose TOP BID PRN 02/25/17 [History] Magnesium Hydroxide [Milk of Magnesia] 30 ml GTUBE ASDIRECTED PRN 02/25/17 [ History] Menthol/Zinc Oxide [Calmoseptine] 1 dose TOP ASDIRECTED PRN 02/25/17 [History] Metoprolol Tartrate 100 mg GTUBE BID 02/25/17 [History] Mupirocin Cream [Bactroban Crm] 1 dose TOP ASDIRECTED PRN 02/25/17 [History] Nystatin [Nyamyc] 1 dose TOP ASDIRECTED PRN 02/25/17 [History] Ondansetron [Zofran] 8 mg GTUBE ASDIRECTED PRN 02/25/17 [History] Triamcinolone Acetonide [Triamcinolone Acetonide 0.1% Crm] 1 dose TOP BID [History] Trolamine Salicylate [Aspercreme] 1 dose TOP ASDIRECTED PRN 02/25/17 [History] atorvaSTATin [Lipitor] 5 mg GTUBE DAILY 02/25/17 [History] cloNIDine [Catapres] 0.2 mg GTUBE BID 02/25/17 [History] Azithromycin [IJD: Azithromycin] 250 mg NGTUBE ASDIRECTED #6 tab 02/26/17 [Rx] Referrals: PCP,Unknown [Ordering Only Provider] - - Discharge Summary/Plan Comment DC Time >30 min.: Yes (45 mins) Discharge Summary/Plan Comment: Discharge back to [facility] Info Date of Service: 02/27/17 Admission Dx/Problem (Free Text: Admission Diagnosis/Problem Admission Diagnosis/Problem Aspiration pneumonia Functional Status: Reports: Pain Controlled, Tolerating Diet, Urinating. Denies : Ambulating, New Symptoms - Review of Systems General: Denies: Fever, Weakness, Fatigue, Malaise, Chills HEENT: Reports: No Symptoms Pulmonary: Reports: Other (no stridor). Denies: Shortness of Breath, Cough, Wheezing Cardiovascular: Denies: Chest Pain, Palpitations, Dyspnea on Exertion, Other Gastrointestinal: Denies: Abdominal Pain, Nausea, Vomiting Genitourinary: Reports: No Symptoms Musculoskeletal: Reports: No Symptoms Skin: Denies: Cyanosis, Pallor, Diaphoresis, Rash Neurological: Reports: Difficulty Walking, Gait Disturbance. Denies: Confusion , Weakness Psychiatric: Denies: Confusion, Depression, Anxiety, Agitation, Hallucinations, Suicidal Ideation Systems Review Comment: No overnight or acute issues. She is doing relatively well. She wants to back home. - Patient Data Vitals - Most Recent: Last Vital Signs Temp 36.9 C 02/26/17 16:41 Pulse 104 H 02/26/17 20:11 Resp 19 02/26/17 16:41 BP 135/87 02/26/17 20:11 Pulse Ox 99 02/26/17 21:49 Weight - Most Recent: 72.575 kg I&O - Last 24 hours: Intake & Output 02/26/17 02/26/17 02/27/17 14:59 22:59 06:59 Intake Total 1636 Output Total 600 Balance 1036 Lab Results - Last 24 hrs: Laboratory Results - last 24 hr 02/25/17 02/26/17 02/26/17 Range/Units 23:09 06:33 08:30 WBC 13.44 H (3.98-10.04) K/mm3 RBC 4.13 (3.98-5.22) M/mm3 Hgb 13.4 (11.2-15.7) gm/L Hct 41.9 (34.1-44.9) % MCV 101.5 H (79.4-94.8) fl MCH 32.4 H (25.6-32.2) pg MCHC 32.0 L (32.2-35.5) g/dl RDW Std Deviation 57.5 H (36.4-46.3) fL Plt Count 170 L (182-369) K/mm3 MPV 11.3 (9.4-12.3) fl Neut % (Auto) 67.5 (34.0-71.1) % Lymph % (Auto) 16.7 L (19.3-51.7) % Starke % (Auto) 15.1 H (4.7-12.5) % Eos % (Auto) 0.4 L (0.7-5.8) Baso % (Auto) 0.1 (0.1-1.2) % Neut # (Auto) 9.07 H (1.56-6.13) K/mm3 Lymph # (Auto) 2.24 (1.18-3.74) K/mm3 Starke # (Auto) 2.03 H (0.24-0.36) K/mm3 Eos # (Auto) 0.05 (0.04-0.36) K/mm3 Baso # (Auto) 0.02 (0.01-0.08) K/mm3 Manual Slide Review Normal smear Sodium 135 L (136-145) mEq/L Potassium 5.1 (3.5-5.1) mEq/L Chloride 102 (98-107) mEq/L Carbon Dioxide 20 L (21-32) mEq/L Anion Gap 18.1 H (5-15) BUN 27 H (7-18) mg/dL Creatinine 0.9 (0.55-1.02) mg/dL Est Cr Clr Drug Dosing 34.48 mL/min Estimated GFR (MDRD) 60 (>60) mL/min BUN/Creatinine Ratio 30.0 H (14-18) Glucose 180 H (83-115) mg/dL Calcium 8.7 (8.5-10.1) mg/dL Magnesium 1.9 (1.8-2.4) mg/dl C-Reactive Protein 26.8 H* (<1.0) mg/dL MRSA (PCR) Positive H Med Orders - Current: Current Medications Acetaminophen (Tylenol) 650 mg GTUBE Q4H PRN PRN Reason: Pain (Mild 1-3)/fever Acetaminophen (Tylenol) 325 mg GTUBE Q4H PRN PRN Reason: Pain Hydrocodone Bitart/Acetaminophen (Lamar 325-5 Mg) 1 tab GTUBE Q4H PRN PRN Reason: Pain (moderate 4-6) Albuterol/Ipratropium (Duoneb 3.0-0.5 Mg/3 Ml) 3 ml NEB Q4H PRN PRN Reason: Shortness Of Breath/wheezing Last Admin: 02/26/17 21:48 Dose: 3 ml Amiodarone HCl (Cordarone) 200 mg GTUBE DAILY [facility] Last Admin: 02/26/17 16:24 Dose: 200 mg Aspirin (Aspirin) 81 mg GTUBE DAILY [facility] Last Admin: 02/26/17 16:24 Dose: 81 mg Bisacodyl (Dulcolax) 10 mg RECTAL ASDIRECTED PRN PRN Reason: Constipation Clonidine HCl (Catapres) 0.2 mg GTUBE BID [facility] Last Admin: 02/26/17 20:11 Dose: 0.2 mg Clopidogrel Bisulfate (Plavix) 75 mg .XX DAILY [facility] Last Admin: 02/26/17 16:24 Dose: 75 mg Docusate Sodium (Colace) 100 mg .XX BID [facility] Last Admin: 02/26/17 20:11 Dose: 100 mg Enoxaparin Sodium (Lovenox) 30 mg SUBCUT DAILY [facility] Last Admin: 02/26/17 10:10 Dose: 30 mg Gabapentin (Neurontin) 100 mg GTUBE BEDTIME [facility] Last Admin: 02/26/17 20:11 Dose: 100 mg Hydralazine HCl (Apresoline) 10 mg IVPUSH Q4H PRN PRN Reason: Hypertension Hydromorphone HCl (Dilaudid) 0.25 mg IVPUSH Q2H PRN PRN Reason: Pain (severe 7-10) Promethazine HCl 12.5 mg/ (Sodium Chloride) 50.5 mls @ 100 mls/hr IV Q6H PRN PRN Reason: Nausea/Vomiting Azithromycin 500 mg/ Sodium (Chloride) 250 mls @ 250 mls/hr IV Q24H [facility] Last Admin: 02/26/17 20:09 Dose: 250 mls/hr Ceftriaxone Sodium 1 gm/ (Sodium Chloride) 100 mls @ 200 mls/hr IV Q24H [facility] Last Admin: 02/26/17 20:12 Dose: 200 mls/hr Dextrose/Sodium Chloride (Dextrose 5%-Normal Saline) 500 mls @ 75 mls/hr IV ASDIRECTED [facility] Last Admin: 02/26/17 17:29 Dose: 75 mls/hr Lorazepam (Ativan) 0.5 mg IV Q4H PRN PRN Reason: Anxiety Lorazepam (Ativan) 2 mg IVPUSH Q4H PRN PRN Reason: Seizures Magnesium Hydroxide (Milk Of Magnesia) 30 ml GTUBE ASDIRECTED PRN PRN Reason: Constipation Magnesium Sulfate (Pharmacy To Dose - Magnesium Replacement) 1 dose .XX ASDIRECTED [facility] Metoprolol Tartrate (Lopressor) 100 mg GTUBE BID [facility] Last Admin: 02/26/17 20:11 Dose: 100 mg Metoprolol Tartrate (Lopressor) 5 mg IVPUSH Q4H PRN PRN Reason: Tachycardia Mupirocin (Bactroban Nasal Oint) 1 gm MIKE BID [facility] Stop: 03/02/17 21:01 Last Admin: 02/26/17 20:10 Dose: Not Given Non-Formulary Medication (Amino Ac/Protein Hydr/Whey Pro [Prosource Tf Liquid Packet]) 1 oz .ROUTE BEDTIME [facility] Non-Formulary Medication (Dimethicone/Colloidal Oatmeal [Aveeno Daily Moisturizing Lot]) 1 dose TOP ASDIRECTED [facility] Non-Formulary Medication (Lactose-Reduced Food/Fiber [Isosource 1.5 Marcello Liquid] ) 250 ml GTUBE TID [facility] Non-Formulary Medication (Lidocaine Hcl [Aspercreme]) 1 dose TOP BID PRN PRN Reason: Other Non-Formulary Medication (Menthol/Zinc Oxide) 1 dose TOP ASDIRECTED PRN PRN Reason: Other Non-Formulary Medication (Ondansetron) 8 mg GTUBE ASDIRECTED PRN PRN Reason: nausea Non-Formulary Medication (Trolamine Salicylate [Aspercreme]) 1 dose TOP ASDIRECTED PRN PRN Reason: ANKLE PAIN Nystatin (Nystop) 0 gm TOP ASDIRECTED PRN PRN Reason: Rash Ondansetron HCl (Zofran) 4 mg IV Q6H PRN PRN Reason: Nausea/Vomiting Pantoprazole Sodium (Protonix Iv) 40 mg IV Q12HR [facility] Last Admin: 02/26/17 20:12 Dose: 40 mg Potassium Chloride (Pharmacy To Dose - Potassium Replacement) 1 dose .XX ASDIRECTED [facility] Simvastatin (Zocor) 10 mg GTUBE BEDTIME [facility] Last Admin: 02/26/17 20:11 Dose: 10 mg Triamcinolone Acetonide (Triamcinolone Acetonide 0.1% Crm) 0 gm TOP BID [facility] Last Admin: 02/26/17 20:12 Dose: Not Given Discontinued Medications Albuterol/Ipratropium (Duoneb 3.0-0.5 Mg/3 Ml) Confirm Administered Dose 3 ml .ROUTE .STK-MED ONE Stop: 02/25/17 23:00 Last Admin: 02/25/17 23:07 Dose: 3 ml Docusate Sodium (Colace 50 Mg/5 Ml Liquid) 100 mg GTUBE BID [facility] Last Admin: 02/26/17 17:16 Dose: Not Given Ceftriaxone Sodium 1 gm/ (Sodium Chloride) 100 mls @ 200 mls/hr IV ONETIME ONE Stop: 02/25/17 21:42 Last Admin: 02/25/17 21:42 Dose: 200 mls/hr Dextrose/Sodium Chloride (Dextrose 5%-1/2 Ns) 1,000 mls @ 125 mls/hr IV ASDIRECTED ERICK Last Admin: 02/26/17 09:07 Dose: 125 mls/hr Azithromycin 500 mg/ Sodium (Chloride) 250 mls @ 250 mls/hr IV ONETIME ONE Stop: 02/26/17 00:25 Last Admin: 02/26/17 00:31 Dose: 250 mls/hr Magnesium Sulfate 2 gm/ Premix 50 mls @ 50 mls/hr IV ONETIME ONE Stop: 02/26/17 10:59 Last Admin: 02/26/17 10:08 Dose: 50 mls/hr Non-Formulary Medication (Mupirocin Cream) 1 dose TOP ASDIRECTED PRN PRN Reason: Other - Exam General: Reports: Alert, Cooperative, No Acute Distress HEENT: Reports: Pupils Equal, Pupils Reactive, Mucous Membr. Moist/[place] Neck: Reports: Supple, Trachea Midline, No JVD, No Thyromegaly Lungs: Reports: Normal Respiratory Effort, Decreased Breath Sounds Cardiovascular: Reports: Regular Rate, Regular Rhythm GI/Abdominal Exam: Normal Bowel Sounds, Soft, Non-Tender, No Organomegaly, No Distention, No Abnormal Bruit, No Mass, Pelvis Stable (Female) Exam: Deferred Rectal (Female) Exam: Deferred Back Exam: Reports: Normal Inspection, Decreased Range of Motion Extremities: Normal Inspection, Normal Range of Motion, Non-Tender, No Pedal Edema, Normal Capillary Refill, Other (left AKA) Skin: Reports: Warm, Dry, Intact Neurological: Reports: No New Focal Deficit Psy/Mental Status: Reports: Alert, Normal Affect, Normal Mood *Q Meaningful Use (DIS) - VTE *Q VTE Criteria *Q: - Stroke *Q Stroke Criteria *Q: - AMI *Q AMI Criteria *Q:
[2017-02-27] MEDS ORDERED: Bumetanide 1 MG/4 ML MDV IVPUSH ONE (00:17)
[2017-02-27] MEDS ORDERED: Sodium Chloride 0.9% 10 ML Syringe FLUSH PRN (00:17)
--- NOTE | 2017-02-27 07:51 | CR ---
Chest: Portable view of the chest was obtained. Comparison: Previous chest x-ray of 02/25/17. Heart size appears within normal limits for portable technique. Slight thickening of the right minor fissure is seen compatible with minimal atelectasis. Minimal atelectasis is seen within the left midlung. Pulmonary vessels are slightly increased which appear to be accentuated from portable technique. No acute infiltrates are seen. 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 Impression: 1. Incidental findings as noted above. Nothing acute is suspected on portable chest x-ray. Diagnostic code #2
[2017-02-27] MEDS: Enoxaparin 30 MG/0.3 ML Syringe SUBCUT SCH (08:42)
[2017-02-27] MEDS: Metoprolol Tartrate 100 MG Tab GTUBE SCH (08:42)
[2017-02-27] MEDS: Pantoprazole 40 MG Vial IV SCH (08:42)
[2017-02-27] MEDS: Clopidogrel 75 MG Tab SCH (08:43)
[2017-02-27] MEDS: Amiodarone 200 MG Tab GTUBE SCH (08:43)
[2017-02-27] MEDS: Docusate Sodium 100 MG Cap SCH (08:43)
[2017-02-27] MEDS: Aspirin 81 MG Tab.Chew GTUBE SCH (08:43)
[2017-02-27] MEDS: cloNIDine 0.1 MG Tab GTUBE SCH (08:43)
[2017-02-27] MEDS: FIBER GTUBE SCH ×4 (09:04→15:11)
[2017-02-27] MEDS: LACTOSE REDUCED FOOD GTUBE SCH ×4 (09:04→15:11)
[2017-02-27] MEDS: Triamcinolone Acetonide 0.1% Crm 15 GM Tube TOP SCH (09:05)
[2017-02-27] MEDS: MUPIROCIN NAS SCH (09:06)
[2017-02-27] MEDS: Albuterol/Ipratropium 3.0-0.5 MG/3 ML Neb Soln NEB PRN (09:20)
[2017-02-27 12:34] VITALS: BP 139/63
--- NOTE | 2017-02-27 19:58 | CR ---
Chest: Portable view of the chest was obtained. Comparison: Prior chest CT of 09/07/13. Heart is enlarged. Mild chronic-appearing increased lung markings are noted. Pacemaker is noted. 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 Impression: 1. Mild cardiomegaly and other incidental findings. Nothing acute is appreciated. Diagnostic code #2
== END 2017-02-27 13:45 | DRG 917 ==
LOC: SUPCPDRO 20:02 → JD.ED 20:02 → JD.MS 21:45 → UNDOADMIN 21:45 → JD.MS 22:18 → UNDODISIN 02-27 13:45
PROVIDERS: ADMIT Internal Medicine; ATTEND Internal Medicine
DX: T65.891A Toxic effect of other specified substances, accidental (unintentional), initial encounter (principal); J69.8 Pneumonitis due to inhalation of other solids and liquids; Y92.129 Unspecified place in nursing home as the place of occurrence of the external cause; R09.02 Hypoxemia; R79.89 Other specified abnormal findings of blood chemistry; R13.10 Dysphagia, unspecified; Z93.1 Gastrostomy status; R06.00 Dyspnea, unspecified; A49.02 Methicillin resistant Staphylococcus aureus infection, unspecified site; I48.91 Unspecified atrial fibrillation; I25.10 Atherosclerotic heart disease of native coronary artery without angina pectoris; I11.0 Hypertensive heart disease with heart failure; I50.9 Heart failure, unspecified; K21.9 Gastro-esophageal reflux disease without esophagitis; K59.09 Other constipation; F32.9 Major depressive disorder, single episode, unspecified; G89.4 Chronic pain syndrome; M54.9 Dorsalgia, unspecified; Z86.73 Personal history of transient ischemic attack (TIA), and cerebral infarction without residual deficits; Z89.612 Acquired absence of left leg above knee; Z79.02 Long term (current) use of antithrombotics/antiplatelets; Z79.82 Long term (current) use of aspirin; Z79.899 Other long term (current) drug therapy; Z88.1 Allergy status to other antibiotic agents; E78.5 Hyperlipidemia, unspecified; I73.9 Peripheral vascular disease, unspecified; Z66 Do not resuscitate
CPT/HCPCS: 36415; 71010; 80053; 85025; 94660; 96365; 99285; J0696; J7030; 80048; 83735; 86140; 87641; 92610-GN; 94640-76; 94664; 94760; 94761; 97163-GP; A9270-GY; C9113; J0456; J1650; J3475; J7042; J7050

== ENCOUNTER 2018-09-01 08:48 | Inpatient (IN) | payer MEDICARE, OTHER, MEDICAID ==
--- NOTE | 2018-09-01 09:17 | EDM.PDOC ---
ED HPI GENERAL MEDICAL PROBLEM - General Chief Complaint: Cardiovascular Problem Stated Complaint: [facility] Time Seen by Provider: 09/01/18 09:10 Source of Information: Reports: Patient, EMS History Limitations: Reports: No Limitations - History of Present Illness INITIAL COMMENTS - FREE TEXT/NARRATIVE: 88-year-old female presents to the ED per [facility]. Apparently her blood pressure was felt to be markedly elevated this morning and her O2 sats were around 90 or less. She was complaining of diffuse cervical neck pain although she's not complaining of neck pain upon arrival in the ED. Patient has some underlying dementia. She is fed primarily with a G-tube. She started eating and drinking a few weeks ago but this has to be clarified. She has not received any medications en route to the hospital. She is afebrile. Denies cough or sputum production. Patient has underlying coronary artery disease and congestive failure. 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 She has evidence of multiple scars on the inner aspect of her right thigh and leg suggestive of venous harvesting. By history she has femoral stents bilaterally and is on Plavix. She is afebrile. Sats are 91% on room air. Her hands are cold to touch with the. CODE STATUS is listed as DO NOT RESUSCITATE Onset: Today Onset Date: 09/01/18 Onset Time: 08:00 Duration: Minutes: Location: Reports: Neck (Complain of pain throughout her neck apparently at that usp), Lower Extremity, Left, Lower Extremity, Right (Chronic pain. ). Denies: Chest, Abdomen, Back, Pelvis Quality: Reports: Ache, Other Severity: Moderate Improves with: Reports: Other (Denies any neck pain upon arrival in the ED.) Worsens with: Reports: Movement Context: Denies: Activity, Exercise (Barely is very stiff and sore this morning but she seems to have worked about.), Sick Contact, Trauma, Other Associated Symptoms: Reports: Shortness of Breath. 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: Reports: Other (see below) (No meds this morning.) - Related Data Allergies Allergy/AdvReac Type Severity Reaction Status Date / Time amoxicillin [From Augmentin] Allergy Other Verified 09/01/18 09:04 clavulanic acid Allergy Other Verified 09/01/18 09:04 [From Augmentin] Home Meds: Home Meds Acetaminophen 650 mg GTUBE TID PRN 02/25/17 [History] Amino Ac/Protein Hydr/Whey Pro [Prosource Tf Liquid Packet] 1 oz GTUBE BID 02/25 [History] Amiodarone [Cordarone] 200 mg GTUBE DAILY 02/25/17 [History] Aspirin 81 mg GTUBE DAILY 02/25/17 [History] Clopidogrel [Plavix] 75 mg GTUBE DAILY 02/25/17 [History] Docusate Sodium [Diocto] 15 ml GTUBE BID 02/25/17 [History] Gabapentin 100 mg PO TID 02/25/17 [History] Metoprolol Tartrate 100 mg GTUBE BID 02/25/17 [History] atorvaSTATin [Lipitor] 5 mg GTUBE DAILY 02/25/17 [History] cloNIDine [Catapres] 0.2 mg GTUBE BID 02/25/17 [History] Furosemide [Lasix Oral Soln] 2 ml PO DAILY 09/01/18 [History] Ketoconazole [Nizoral 2% Crm] 1 applic TOP DAILY PRN 09/01/18 [History] Lactose-Reduced Food/Fiber [Isosource 1.5 Marcello Liquid] 125 ml PEGTUBE DAILY 09/01 [History] Multivitamin [Daily Multiple Vitamin] 1 tab PEGTUBE BEDTIME 09/01/18 [History] Water [Purified Water] 200 ml PEGTUBE QID 09/01/18 [History] Past Medical History Cardiovascular History: Reports: Afib, Heart Failure, High Cholesterol, Hypertension, Other (See Below) Other Cardiovascular History: sick sinus syndrome Gastrointestinal History: Reports: Chronic Constipation, GERD Other Gastrointestinal History: pt received feeding via peg tube. Genitourinary History: Reports: UTI, Recurrent, Other (See Below) Other Genitourinary History: dysuria GRADE SETTER History: Reports: Musculoskeletal History: Reports: Back Pain, Chronic Neurological History: Reports: CVA Psychiatric History: Reports: Depression Endocrine/Metabolic History: Reports: Obesity/BMI 30+ Dermatologic History: Reports: Psoriasis, Other (See Below) Other Dermatologic History: pt has multiple psoriasis areas all over her body. Red skin folds in the groin, covered with juan carlos upon arrival to the floor. 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 - Past Surgical History Musculoskeletal Surgical History: Reports: Amputation Other Musculoskeletal Surgeries/Procedures:: left above knee amputation Social & Family History - Family History Family Medical History: Noncontributory - Caffeine Use Caffeine Use: Reports: None - Living Situation & Occupation Living situation: Reports: Extended Care Facility ([facility]) Occupation: Disabled ED ROS GENERAL - Review of Systems Review Of Systems: See Below Constitutional: Reports: Malaise, Other (She reports that she is hungry and has not had breakfast yet.). Denies: Fever, Chills HEENT: Reports: Glasses. Denies: Hearing Loss, Nosebleed, Sinus Problem, Throat Pain, Throat Swelling Respiratory: Reports: Shortness of Breath. Denies: Wheezing, Pleuritic Chest Pain, Cough, Sputum Cardiovascular: Reports: Blood Pressure Problem, Other (Patient is nonambulatory ). Denies: Chest Pain, Claudication, Edema, Lightheadedness, Orthopnea Endocrine: Reports: Fatigue GI/Abdominal: Denies: Abdominal Pain : Reports: Incontinence, Other (Wears depends.) Musculoskeletal: Reports: Other (Has an above-knee amputation on the left side. Evidence of peripheral vascular disease on the right side.) Skin: Reports: Other (Cool to touch ruborous complexion.) Neurological: Reports: No Symptoms Psychiatric: Reports: No Symptoms Hematologic/Lymphatic: Reports: No Symptoms Immunologic: Reports: No Symptoms ED EXAM, GENERAL - Physical Exam Exam: See Below Exam Limited By: No Limitations General Appearance: Alert, No Apparent Distress, Other (O2 sats are 91% on room air will be placed on oxygen 2 L/m by nasal cannula. Feels quite cool.) Eye Exam: Bilateral Eye: Normal Inspection Throat/Mouth: Normal Oropharynx, Other (Tongue is dry and coated.). No: Normal Teeth Head: Atraumatic, Normocephalic Neck: Normal Inspection, Supple, Non-Tender, Full Range of Motion, Other (No JVD appreciated). No: Carotid Bruit, Lymphadenopathy (L), Lymphadenopathy (R) Respiratory/Chest: No Respiratory Distress, No Accessory Muscle Use, Rales ( Coarse crackles both lung bases and anterior chest bilaterally.), Other (Well- healed midline sternotomy incision. Pacemaker palpable left upper anterior chest.). No: Rhonchi, Wheezing Cardiovascular: Regular Rate, Rhythm, No Edema, No Gallop, No JVD, No Murmur, No Rub. No: Normal Peripheral Pulses Peripheral Pulses: 0: Popliteal (L), Popliteal (R), Posterior Tibial (R), Dorsalis Pedis (R), 1+: Femoral (L), Femoral (R) GI/Abdominal: Normal Bowel Sounds, Soft, Non-Tender, No Organomegaly, No Abnormal Bruit, No Mass, Pelvis Stable, Other (G-tube left upper quadrant of the abdomen.). No: Distended Back Exam: Normal Inspection. No: Full Range of Motion, CVA Tenderness (L), CVA Tenderness (R) Extremities: Other (Has an above-knee application on the left side. There is evidence of recent skin graft from the anterior aspect of the left thigh. She reports it's been about a year.) Neurological: Alert ( Her affect was placed.), Oriented, CN II-XII Intact, Normal Cognition. No: Normal Gait (Patient is nonambulatory) Psychiatric: Normal Affect, Normal Mood Skin Exam: Warm, Dry, Intact, Other (Cool to touch. Interest 36.3.) EKG INTERPRETATION EKG Date: 09/01/18 Time: 10:03 Rhythm: Other (100% paced with an AV to paced rhythm.) Rate (Beats/Min): 70 EKG Interpretation Comments: No further analysis attempted due to 100% paced Course - Vital Signs Last Recorded V/S: Last Vital Signs Temp 36.3 C 09/03/18 05:18 Pulse 73 09/03/18 05:18 Resp 24 H 09/03/18 05:18 BP 154/84 H 09/03/18 05:18 Pulse Ox 93 L 09/03/18 05:18 - Orders/Labs/Meds Orders: Medication Orders Acetaminophen (Tylenol) 650 mg GTUBE TID PRN PRN Reason: Pain Amiodarone HCl (Cordarone) 200 mg GTUBE DAILY [facility] Last Admin: 09/02/18 10:50 Dose: 200 mg Aspirin (Aspirin) 81 mg GTUBE DAILY [facility] Last Admin: 09/02/18 10:48 Dose: 81 mg Clonidine HCl (Catapres) 0.2 mg GTUBE BID [facility] Last Admin: 09/02/18 20:36 Dose: 0.2 mg Admin: 09/02/18 11:07 Dose: Admin: 09/01/18 23:20 Dose: 0.2 mg Clopidogrel Bisulfate (Plavix) 75 mg .XX DAILY [facility] Last Admin: 09/02/18 10:44 Dose: 75 mg Clotrimazole (Lotrimin Af 1% Crm) 1 gm TOP DAILY PRN PRN Reason: flare ups in abdominal rolls Enoxaparin Sodium (Lovenox) 40 mg SUBCUT Q24H [facility] Last Admin: 09/02/18 20:12 Dose: 40 mg Hydralazine HCl (Apresoline) 20 mg IVPUSH Q6H PRN PRN Reason: Hypertension Metoprolol Tartrate (Lopressor) 100 mg GTUBE BID [facility] Last Admin: 09/02/18 20:34 Dose: 100 mg Admin: 09/02/18 10:51 Dose: 100 mg Admin: 09/01/18 23:15 Dose: 100 mg Metoprolol Tartrate (Lopressor) 5 mg IVPUSH Q6H PRN PRN Reason: HR>110 Multivitamins (Thera) 1 each .XX BEDTIME [facility] Last Admin: 09/02/18 20:12 Dose: 1 each Admin: 09/01/18 23:17 Dose: 1 each Prosource Tf Liquid (Packet) 0 each GTUBE BID [facility] Last Admin: 09/02/18 20:40 Dose: 1 each Admin: 09/02/18 11:08 Dose: Admin: 09/02/18 10:44 Dose: 1 each Docusate Sodium Liquid Patients Own Med 0 each GTUBE BID [facility] Last Admin: 09/02/18 20:40 Dose: Admin: 09/02/18 10:33 Dose: Admin: 09/02/18 10:32 Dose: Gabapentin Suspension Patients Own Med 0 each GTUBE TID [facility] Last Admin: 09/02/18 20:40 Dose: Admin: 09/02/18 15:56 Dose: Admin: 09/02/18 10:33 Dose: Admin: 09/02/18 10:33 Dose: Purified Water 200 Ml Per Home Regimen 0 each GTUBE QID [facility] Last Admin: 09/02/18 20:40 Dose: 1 each Admin: 09/02/18 16:01 Dose: 1 each Admin: 09/02/18 12:25 Dose: 1 each Admin: 09/02/18 11:08 Dose: Admin: 09/02/18 10:30 Dose: 1 each Simvastatin (Zocor) 5 mg GTUBE DAILY [facility] Last Admin: 09/02/18 10:46 Dose: 5 mg Sodium Chloride (Saline Flush) 10 ml FLUSH ASDIRECTED PRN PRN Reason: Keep Vein Open Temazepam (Restoril) 7.5 mg PO BEDTIME PRN PRN Reason: Insomnia Labs: Laboratory Tests 09/01/18 09/01/18 09/01/18 Range/Units 09:49 10:10 10:10 WBC 13.71 H (3.98-10.04) K/mm3 RBC 4.85 (3.98-5.22) M/mm3 Hgb 15.8 H (11.2-15.7) gm/L Hct 50.9 H (34.1-44.9) % MCV 104.9 H (79.4-94.8) fl MCH 32.6 H (25.6-32.2) pg MCHC 31.0 L (32.2-35.5) g/dl RDW Std Deviation 59.0 H (36.4-46.3) fL Plt Count 174 L (182-369) K/mm3 MPV 11.6 (9.4-12.3) fl Neutrophils % (Manual) 82 H (40-60) % Band Neutrophils % 0 (0-10) % Lymphocytes % (Manual) 13 L (20-40) % Atypical Lymphs % 0 % Monocytes % (Manual) 4 (2-10) % Eosinophils % (Manual) 0 L (0.7-5.8) % Basophils % (Manual) 1 (0.1-1.2) Platelet Estimate Adequate Plt Morphology Comment See note RBC Morph Comment Normal PT 10.5 (9.5-12.1) SECONDS INR 0.96 APTT (24-31) SECONDS Sodium (136-145) mEq/L Potassium (3.5-5.1) mEq/L Chloride (98-107) mEq/L Carbon Dioxide (21-32) mEq/L Anion Gap (5-15) BUN (7-18) mg/dL Creatinine (0.55-1.02) mg/dL Est Cr Clr Drug Dosing Estimated GFR (MDRD) (>60) mL/min BUN/Creatinine Ratio (14-18) Glucose (83-115) mg/dL Lactic Acid 3.1 H (0.4-2.0) mmol/L Calcium (8.5-10.1) mg/dL Magnesium (1.8-2.4) mg/dl Total Bilirubin (0.2-1.0) mg/dL AST (15-37) U/L ALT (14-59) U/L Alkaline Phosphatase (46-116) U/L CK-MB (CK-2) (0-3.6) ng/ml Troponin I (0.00-0.056) ng/mL C-Reactive Protein (<1.0) mg/dL NT-Pro-B Natriuret Pep (0-450) pg/mL Total Protein (6.4-8.2) g/dl Albumin (3.4-5.0) g/dl Globulin gm/dL Albumin/Globulin Ratio (1-2) Urine Color (Yellow) Urine Appearance (Clear) Urine pH (5.0-8.0) Ur Specific Clayton (1.005-1.030) Urine Protein (Negative) Urine Glucose (UA) (Negative) Urine Ketones (Negative) Urine Occult Blood (Negative) Urine Nitrite (Negative) Urine Bilirubin (Negative) Urine Urobilinogen (0.2-1.0) Ur Leukocyte Esterase (Negative) Urine RBC (0-5) /hpf Urine WBC (0-5) /hpf Ur Epithelial Cells (0-5) /hpf Urine Bacteria (FEW) /hpf Urine Mucus (FEW) /hpf 09/01/18 09/01/18 09/01/18 Range/Units 10:10 10:10 10:10 WBC (3.98-10.04) K/mm3 RBC (3.98-5.22) M/mm3 Hgb (11.2-15.7) gm/L Hct (34.1-44.9) % MCV (79.4-94.8) fl MCH (25.6-32.2) pg MCHC (32.2-35.5) g/dl RDW Std Deviation (36.4-46.3) fL Plt Count (182-369) K/mm3 MPV (9.4-12.3) fl Neutrophils % (Manual) (40-60) % Band Neutrophils % (0-10) % Lymphocytes % (Manual) (20-40) % Atypical Lymphs % % Monocytes % (Manual) (2-10) % Eosinophils % (Manual) (0.7-5.8) % Basophils % (Manual) (0.1-1.2) Platelet Estimate Plt Morphology Comment RBC Morph Comment PT (9.5-12.1) SECONDS INR APTT 29 (24-31) SECONDS Sodium 134 L (136-145) mEq/L Potassium 4.6 (3.5-5.1) mEq/L Chloride 99 (98-107) mEq/L Carbon Dioxide 25 (21-32) mEq/L Anion Gap 14.6 (5-15) BUN 19 H (7-18) mg/dL Creatinine 0.8 (0.55-1.02) mg/dL Est Cr Clr Drug Dosing TNP Estimated GFR (MDRD) > 60 (>60) mL/min BUN/Creatinine Ratio 23.8 H (14-18) Glucose 131 H (83-115) mg/dL Lactic Acid (0.4-2.0) mmol/L Calcium 9.7 (8.5-10.1) mg/dL Magnesium 1.9 (1.8-2.4) mg/dl Total Bilirubin 0.3 (0.2-1.0) mg/dL AST 28 (15-37) U/L ALT 32 (14-59) U/L Alkaline Phosphatase 111 (46-116) U/L CK-MB (CK-2) 1.9 (0-3.6) ng/ml Troponin I < 0.017 (0.00-0.056) ng/mL C-Reactive Protein 3.5 H* (<1.0) mg/dL NT-Pro-B Natriuret Pep 4878 H (0-450) pg/mL Total Protein 8.0 (6.4-8.2) g/dl Albumin 3.0 L (3.4-5.0) g/dl Globulin 5.0 gm/dL Albumin/Globulin Ratio 0.6 L (1-2) Urine Color (Yellow) Urine Appearance (Clear) Urine pH (5.0-8.0) Ur Specific Clayton (1.005-1.030) Urine Protein (Negative) Urine Glucose (UA) (Negative) Urine Ketones (Negative) Urine Occult Blood (Negative) Urine Nitrite (Negative) Urine Bilirubin (Negative) Urine Urobilinogen (0.2-1.0) Ur Leukocyte Esterase (Negative) Urine RBC (0-5) /hpf Urine WBC (0-5) /hpf Ur Epithelial Cells (0-5) /hpf Urine Bacteria (FEW) /hpf Urine Mucus (FEW) /hpf 09/01/18 Range/Units 12:08 WBC (3.98-10.04) K/mm3 RBC (3.98-5.22) M/mm3 Hgb (11.2-15.7) gm/L Hct (34.1-44.9) % MCV (79.4-94.8) fl MCH (25.6-32.2) pg MCHC (32.2-35.5) g/dl RDW Std Deviation (36.4-46.3) fL Plt Count (182-369) K/mm3 MPV (9.4-12.3) fl Neutrophils % (Manual) (40-60) % Band Neutrophils % (0-10) % Lymphocytes % (Manual) (20-40) % Atypical Lymphs % % Monocytes % (Manual) (2-10) % Eosinophils % (Manual) (0.7-5.8) % Basophils % (Manual) (0.1-1.2) Platelet Estimate Plt Morphology Comment RBC Morph Comment PT (9.5-12.1) SECONDS INR APTT (24-31) SECONDS Sodium (136-145) mEq/L Potassium (3.5-5.1) mEq/L Chloride (98-107) mEq/L Carbon Dioxide (21-32) mEq/L Anion Gap (5-15) BUN (7-18) mg/dL Creatinine (0.55-1.02) mg/dL Est Cr Clr Drug Dosing Estimated GFR (MDRD) (>60) mL/min BUN/Creatinine Ratio (14-18) Glucose (83-115) mg/dL Lactic Acid (0.4-2.0) mmol/L Calcium (8.5-10.1) mg/dL Magnesium (1.8-2.4) mg/dl Total Bilirubin (0.2-1.0) mg/dL AST (15-37) U/L ALT (14-59) U/L Alkaline Phosphatase (46-116) U/L CK-MB (CK-2) (0-3.6) ng/ml Troponin I (0.00-0.056) ng/mL C-Reactive Protein (<1.0) mg/dL NT-Pro-B Natriuret Pep (0-450) pg/mL Total Protein (6.4-8.2) g/dl Albumin (3.4-5.0) g/dl Globulin gm/dL Albumin/Globulin Ratio (1-2) Urine Color Light yellow (Yellow) Urine Appearance Clear (Clear) Urine pH 7.0 (5.0-8.0) Ur Specific Clayton 1.020 (1.005-1.030) Urine Protein Negative (Negative) Urine Glucose (UA) Negative (Negative) Urine Ketones Negative (Negative) Urine Occult Blood Negative (Negative) Urine Nitrite Negative (Negative) Urine Bilirubin Negative (Negative) Urine Urobilinogen 0.2 (0.2-1.0) Ur Leukocyte Esterase Negative (Negative) Urine RBC 0-5 (0-5) /hpf Urine WBC Not seen (0-5) /hpf Ur Epithelial Cells 0-5 (0-5) /hpf Urine Bacteria Rare (FEW) /hpf Urine Mucus Not seen (FEW) /hpf Meds: Medications Generic Name Dose Route Start Last Admin Trade Name Freq PRN Reason Stop Dose Admin Acetaminophen 650 mg 09/01/18 20:19 Tylenol GTUBE TID PRN Pain Amiodarone HCl 200 mg 09/02/18 09:00 09/02/18 10:50 Cordarone GTUBE 200 mg DAILY [facility] Administration Aspirin 81 mg 09/02/18 09:00 09/02/18 10:48 Aspirin GTUBE 81 mg DAILY [facility] Administration Clonidine HCl 0.2 mg 09/01/18 21:00 09/02/18 20:36 Catapres GTUBE 0.2 mg BID [facility] Administration Clopidogrel Bisulfate 75 mg 09/02/18 09:00 09/02/18 10:44 Plavix .XX 75 mg DAILY [facility] Administration Clotrimazole 1 gm 09/01/18 20:19 Lotrimin Af 1% Crm TOP DAILY PRN flare ups in abdominal rolls Enoxaparin Sodium 40 mg 09/02/18 20:00 09/02/18 20:12 Lovenox SUBCUT 40 mg Q24H [facility] Administration Hydralazine HCl 20 mg 09/01/18 20:25 Apresoline IVPUSH Q6H PRN Hypertension Metoprolol Tartrate 100 mg 09/01/18 21:00 09/02/18 20:34 Lopressor GTUBE 100 mg BID [facility] Administration Metoprolol Tartrate 5 mg 09/01/18 20:25 Lopressor IVPUSH Q6H PRN HR>110 Multivitamins 1 each 09/01/18 21:00 09/02/18 20:12 Thera .XX 1 each BEDTIME [facility] Administration Prosource Tf Liquid 0 each 09/01/18 21:00 09/02/18 20:40 Packet GTUBE 1 each BID [facility] Administration Docusate Sodium 0 each 09/01/18 21:00 09/02/18 20:40 Liquid Patients GTUBE Not Given Own Med BID [facility] Gabapentin 0 each 09/01/18 21:00 09/02/18 20:40 Suspension GTUBE Not Given Patients Own Med TID [facility] Purified Water 200 0 each 09/01/18 21:00 09/02/18 20:40 Ml Per Home GTUBE 1 each Regimen QID [facility] Administration Simvastatin 5 mg 09/02/18 09:00 09/02/18 10:46 Zocor GTUBE 5 mg DAILY [facility] Administration Sodium Chloride 10 ml 09/01/18 14:11 Saline Flush FLUSH ASDIRECTED PRN Keep Vein Open Temazepam 7.5 mg 09/01/18 20:26 Restoril PO BEDTIME PRN Insomnia Discontinued Medications Generic Name Dose Route Start Last Admin Trade Name Freq PRN Reason Stop Dose Admin Clonidine HCl 0.2 mg 09/02/18 10:53 09/02/18 11:01 Catapres PO 09/02/18 10:54 0.2 mg ONETIME ONE Administration Furosemide 60 mg 09/01/18 09:32 09/01/18 10:38 Lasix IVPUSH 09/01/18 09:33 60 mg NOW ONE Administration Dextrose/Sodium Chloride 1,000 mls @ 75 mls/hr 09/01/18 09:15 09/02/18 13:34 Dextrose 5%-Normal Saline IV 75 mls/hr ASDIRECTED [facility] Administration Ceftriaxone Sodium 1 gm/ 100 mls @ 200 mls/hr 09/01/18 12:13 09/01/18 13:26 Sodium Chloride IV 09/01/18 12:42 200 mls/hr ONETIME ONE Administration Magnesium Sulfate 4 gm/ Premix 50 mls @ 12.5 mls/hr 09/02/18 15:23 09/02/18 15:47 IV 09/02/18 19:22 12.5 mls/hr ONETIME ONE Administration Sodium Chloride 1,000 mls @ 100 mls/hr 09/02/18 15:30 09/02/18 15:47 Normal Saline IV 09/02/18 21:30 100 mls/hr ASDIRECTED ERICK Administration Sodium Chloride 1,000 mls @ 75 mls/hr 09/02/18 21:30 Normal Saline IV ASDIRECTED ERICK Isosource 1.5 Marcello 0 each 09/02/18 09:00 09/02/18 11:30 Liquid 125ml GTUBE Not Given Patients Own Med DAILY [facility] Isosource 1.5 Marcello 0 each 09/02/18 16:00 09/02/18 16:30 Liquid 125ml GTUBE Not Given Patients Own Med DAILY@1600 [facility] - Radiology Interpretation Free Text/Narrative:: 88-year-old female presents to the ED from [facility]. Apparently her blood pressure was found of quite elevated this morning and her O2 sats were low yet below 90. She has a history of congestive heart failure she is complaining of bilateral neck pain worrisome for referred pain from her heart. Still she was therefore sent to the hospital for evaluation. Of note her CODE STATUS is DO NOT RESUSCITATE. She has had primarily through a G-tube left upper quadrant of the abdomen although she states to me that she's been eating and drinking recently. Again her history is taken with a gr of salt as apparently she does have some dementia. Examination reveals coarse crackles throughout the lungs particularly bases bilaterally worse on the left as compared to the right. She clinically is in heart failure. Plan IV will be D5 normal saline at 75 mils per hour. Will be given Lasix 60 mg IV. - Re-Assessments/Exams Free Text/Narrative Re-Assessment/Exam: 09/01/18 09:41 chest x-ray done portably reveals evidence of previous open heart surgery with wires in the sternum. She has a pacemaker left upper quadrant of the chest. It appears to be atrioventricular. The heart is moderately enlarged with diffuse vascular congestion and fluid within the azygous fissure. There is also haziness along the right hemidiaphragm which appears to be mildly elevated. This is a pattern of mild diffuse congestive failure. 09/01/18 11:00 She has been slowly weaned off of her oxygen. She is currently 94% on room air. BP is 177/77. This is after Lasix 60 mg has been given IV. 09/01/18 11:02 Labs reveal an elevated white count at 13.71. Differential pending hemoglobin is 15.8 with hematocrit of 50.9 suggesting some degree of hemoconcentration. MCV is elevated at 104.9. Platelet count 174,000. PT is 10.5 with an INR of 0.96. PTT is 29. Sodium is slightly low at 134. Potassium is 4.6. Chloride 99 with a bicarbonate of 25. Anion gap is 14.6. BUN is 19 with a creatinine of 0.8. Glucose is 131 with a calcium of 9.7. Magnesium is 1.9. Total bilirubin is 0.3. AST is 28 with an ALT of 32. Alk phosphatase 111. CK-MB fraction is 1.9. Troponin I is less than 0.017. C-reactive protein is elevated at 3.5. BNP is elevated at 4878. Total protein is 8.0 with an albumin fraction low at 3.0. Last serum or support the diagnosis of acute congestive heart failure. Urinalysis to see if there is an underlying infective process involved as well. 09/01/18 11:45 Lactic acid is elevated at 3.1. I have been waiting a urinalysis which has not yet been collected. 09/01/18 11:58 differential on the white count is 82% neutrophils with no band cells reported. 09/01/18 12:15 urine has been collected by catheterization. I will now start her on antibiotic Rocephin 1 g IV. Blood pressure is currently 143/89. After 94 % on no oxygen. 09/01/18 12:44 urinalysis is coming back showing no signs of an infective process. We are in the process of feeding her which was just started about a month ago after 2 swallow evaluations have been completed in [place]. They felt that she tolerated nectar thickened fluids and then. Foods without any issue and she is currently taking normal fluids in small pieces. Fluid seem to go down quite well. 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 There was some concern of aspiration and therefore she hadn't eaten or drank for 3 years up until about a month ago. Case discussed with on-call hospitalist - Dr. Castellanos with a view to admission in the hospital primarily due to congestive heart failure I believe causing her neck and chest discomfort. Question is whether there is also an occult infective process as her lactic acid is elevated at 3.1. She is mildly volume depleted. Placed on Rocephin 1 g IV until we see the results of blood cultures. I spoke with her sons were both here with her at this time. Trevin is a son with the power of deputy prosecuting attorney. Decision made to admit her to the hospital at this time by Dr. Castellanos. Departure - Departure Time of Disposition: 14:09 Disposition: Home, Self-Care 01 Condition: Fair Clinical Impression: Acute exacerbation of CHF (congestive heart failure) Qualifiers: Heart failure type: diastolic Qualified Code(s): I50.33 - Acute on chronic diastolic (congestive) heart failure Leukocytosis Qualifiers: Leukocytosis type: unspecified Qualified Code(s): D72.829 - Elevated white blood cell count, unspecified
[2018-09-01] MEDS ORDERED: Furosemide 40 MG/4 ML VIAL IVPUSH ONE (09:32)
--- NOTE | 2018-09-01 10:16 | CR ---
Chest: Frontal view of the chest was obtained utilizing portable technique. Comparison: Prior chest x-ray of 02/27/17. Mild atelectasis around the right minor fissure is noted. Heart is enlarged. Atherosclerotic calcification is noted within the thoracic aorta. Prosthetic heart valve is seen. Previous sternotomy is noted. Pulmonary vessels are slightly congested which appear chronic. Pacemaker is noted. Bony structures are grossly intact. Impression: 1. Slight atelectasis around the right minor fissure. 2. Cardiomegaly and mild chronic pulmonary vascular congestion. 3. Other incidental findings. Diagnostic code #3
[2018-09-01] MEDS: Dextrose 5%-0.9% NaCl 1,000 ML IV SCH ×2 (10:38→23:23)
[2018-09-01] MEDS ORDERED: cefTRIAXone 1 GM in Sodium Chloride 0.9% 100 ML IV ONE (12:13)
[2018-09-01] MEDS ORDERED: Sodium Chloride 0.9% 10 ML Syringe FLUSH PRN (14:11)
--- NOTE | 2018-09-01 15:09 | PCM.HP ---
H&P History of Present Illness - General Date of Service: 09/01/18 Admit Problem/Dx: Admission Diagnosis/Problem Admission Diagnosis/Problem Congestive heart failure Source of Information: Family, Provider History Limitations: Reports: No Limitations - History of Present Illness Initial Comments - Free Text/Narative: 88 year old female [facility] resident presents with abrupt neck pain and elevated blood pressure. The patient has a decrease oxygen saturation; there has been no fever/chills, nausea/vomiting, CP, syncopal/presyncopal episodes. No known sick contacts or recent travel. The patient has had dysphagia, and recently began a mechanical soft diet after three years. The patient has a PMH of HTN, CAD/PVD, A Fib/ SSS, and CHF. She has dementia, NOS; LLE amputation, above the knee. Onset of Symptoms: Reports: Sudden Symptom Onset Date: 09/01/18 Duration of Symptoms: Reports: Hour(s):, Getting Worse Location: Reports: Neck, Generalized Severity: Moderate Improves with: Reports: Medication Worsens with: Reports: None Associated Symptoms: Reports: Confusion, Shortness of Breath, Weakness - Related Data Allergies/Adverse Reactions: Allergies Allergy/AdvReac Type Severity Reaction Status Date / Time amoxicillin [From Augmentin] Allergy Other Verified 09/01/18 09:04 clavulanic acid Allergy Other Verified 09/01/18 09:04 [From Augmentin] Home Medications: Home Meds Acetaminophen 650 mg GTUBE TID PRN 02/25/17 [History] Amino Ac/Protein Hydr/Whey Pro [Prosource Tf Liquid Packet] 1 oz GTUBE BID 02/25 [History] Amiodarone [Cordarone] 200 mg GTUBE DAILY 02/25/17 [History] Aspirin 81 mg GTUBE DAILY 02/25/17 [History] Clopidogrel [Plavix] 75 mg GTUBE DAILY 02/25/17 [History] Docusate Sodium [Diocto] 15 ml GTUBE BID 02/25/17 [History] Gabapentin 100 mg PO TID 02/25/17 [History] Metoprolol Tartrate 100 mg GTUBE BID 02/25/17 [History] atorvaSTATin [Lipitor] 5 mg GTUBE DAILY 02/25/17 [History] cloNIDine [Catapres] 0.2 mg GTUBE BID 02/25/17 [History] Furosemide [Lasix Oral Soln] 2 ml PO DAILY 09/01/18 [History] Ketoconazole [Nizoral 2% Crm] 1 applic TOP DAILY PRN 09/01/18 [History] Lactose-Reduced Food/Fiber [Isosource 1.5 [place]cell[place] Liquid] 125 ml PEGTUBE DAILY 09/01 [History] Multivitamin [Daily Multiple Vitamin] 1 tab PEGTUBE BEDTIME 09/01/18 [History] Water [Purified Water] 200 ml PEGTUBE QID 09/01/18 [History] Past Medical History Cardiovascular History: Reports: Afib, Heart Failure, High Cholesterol, Hypertension, Other (See Below) Other Cardiovascular History: sick sinus syndrome Gastrointestinal History: Reports: Chronic Constipation, GERD Other Gastrointestinal History: pt received feeding via peg tube. Genitourinary History: Reports: UTI, Recurrent, Other (See Below) Other Genitourinary History: dysuria [employer] History: Reports: Musculoskeletal History: Reports: Back Pain, Chronic Neurological History: Reports: CVA Psychiatric History: Reports: Depression Endocrine/Metabolic History: Reports: Obesity/BMI 30+ Dermatologic History: Reports: Psoriasis, Other (See Below) Other Dermatologic History: pt has multiple psoriasis areas all over her body. Red skin folds in the groin, covered with juan carlos upon arrival to the floor. 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 - Past Surgical History Musculoskeletal Surgical History: Reports: Amputation Other Musculoskeletal Surgeries/Procedures:: left above knee amputation Social & Family History - Family History Family Medical History: Noncontributory - Caffeine Use Caffeine Use: Reports: None - Recreational Drug Use Recreational Drug Use: No - Living Situation & Occupation Living situation: Reports: Extended Care Facility ([facility]) Occupation: Disabled H&P Review of Systems - Review of Systems: Review Of Systems: See Below General: Reports: Malaise, Weakness HEENT: Reports: No Symptoms Pulmonary: Reports: No Symptoms Cardiovascular: Reports: No Symptoms Gastrointestinal: Reports: No Symptoms Genitourinary: Reports: No Symptoms Musculoskeletal: Reports: Leg Pain Skin: Reports: No Symptoms Psychiatric: Reports: Confusion Neurological: Reports: Confusion Hematologic/Lymphatic: Reports: No Symptoms Immunologic: Reports: No Symptoms Exam - Exam Exam: See Below - Vital Signs Vital Signs: Last Vital Signs Temp 36.3 C 03/29/19 08:54 Pulse 88 09/01/18 08:54 Resp 16 09/01/18 08:54 BP 165/105 H 09/01/18 08:54 Pulse Ox 91 L 09/01/18 08:54 - Exam Quality Assessment: Supplemental Oxygen, DVT Prophylaxis General: Alert, Oriented, Cooperative HEENT: Conjunctiva Clear, Nares Patent, Normal Nasal Septum, Pupils Equal, Pupils Reactive, PERRLA Neck: Trachea Midline Lungs: Normal Respiratory Effort Cardiovascular: Regular Rate, Irregular Rhythm GI/Abdominal Exam: Normal Bowel Sounds, Soft, Non-Tender, No Organomegaly, No Distention (Female) Exam: Deferred Rectal (Female) Exam: Deferred Back Exam: Normal Inspection Extremities: Normal Inspection, Non-Tender, Normal Capillary Refill Skin: Warm Neurological: Cranial Nerves Intact Neuro Extensive - Mental Status: Alert Neuro Extensive - Motor, Sensory, Reflexes: CN II-XII Intact Psychiatric: Alert - Patient Data Lab Results Last 24 hrs: Laboratory Results - last 24 hr 09/01/18 09/01/18 09/01/18 Range/Units 09:49 10:10 10:10 WBC 13.71 H (3.98-10.04) K/mm3 RBC 4.85 (3.98-5.22) M/mm3 Hgb 15.8 H (11.2-15.7) gm/L Hct 50.9 H (34.1-44.9) % MCV 104.9 H (79.4-94.8) fl MCH 32.6 H (25.6-32.2) pg MCHC 31.0 L (32.2-35.5) g/dl RDW Std Deviation 59.0 H (36.4-46.3) fL Plt Count 174 L (182-369) K/mm3 MPV 11.6 (9.4-12.3) fl Neutrophils % (Manual) 82 H (40-60) % Band Neutrophils % 0 (0-10) % Lymphocytes % (Manual) 13 L (20-40) % Atypical Lymphs % 0 % Monocytes % (Manual) 4 (2-10) % Eosinophils % (Manual) 0 L (0.7-5.8) % Basophils % (Manual) 1 (0.1-1.2) Platelet Estimate Adequate Plt Morphology Comment See note RBC Morph Comment Normal PT 10.5 (9.5-12.1) SECONDS INR 0.96 APTT (24-31) SECONDS Sodium (136-145) mEq/L Potassium (3.5-5.1) mEq/L Chloride (98-107) mEq/L Carbon Dioxide (21-32) mEq/L Anion Gap (5-15) BUN (7-18) mg/dL Creatinine (0.55-1.02) mg/dL Est Cr Clr Drug Dosing Estimated GFR (MDRD) (>60) mL/min BUN/Creatinine Ratio (14-18) Glucose (83-115) mg/dL Lactic Acid 3.1 H (0.4-2.0) mmol/L Calcium (8.5-10.1) mg/dL Magnesium (1.8-2.4) mg/dl Total Bilirubin (0.2-1.0) mg/dL AST (15-37) U/L ALT (14-59) U/L Alkaline Phosphatase (46-116) U/L CK-MB (CK-2) (0-3.6) ng/ml Troponin I (0.00-0.056) ng/mL C-Reactive Protein (<1.0) mg/dL NT-Pro-B Natriuret Pep (0-450) pg/mL Total Protein (6.4-8.2) g/dl Albumin (3.4-5.0) g/dl Globulin gm/dL Albumin/Globulin Ratio (1-2) Urine Color (Yellow) Urine Appearance (Clear) Urine pH (5.0-8.0) Ur Specific [place] (1.005-1.030) Urine Protein (Negative) Urine Glucose (UA) (Negative) Urine Ketones (Negative) Urine Occult Blood (Negative) Urine Nitrite (Negative) Urine Bilirubin (Negative) Urine Urobilinogen (0.2-1.0) Ur Leukocyte Esterase (Negative) Urine RBC (0-5) /hpf Urine WBC (0-5) /hpf Ur Epithelial Cells (0-5) /hpf Urine Bacteria (FEW) /hpf Urine Mucus (FEW) /hpf 09/01/18 09/01/18 09/01/18 Range/Units 10:10 10:10 10:10 WBC (3.98-10.04) K/mm3 RBC (3.98-5.22) M/mm3 Hgb (11.2-15.7) gm/L Hct (34.1-44.9) % MCV (79.4-94.8) fl MCH (25.6-32.2) pg MCHC (32.2-35.5) g/dl RDW Std Deviation (36.4-46.3) fL Plt Count (182-369) K/mm3 MPV (9.4-12.3) fl Neutrophils % (Manual) (40-60) % Band Neutrophils % (0-10) % Lymphocytes % (Manual) (20-40) % Atypical Lymphs % % Monocytes % (Manual) (2-10) % Eosinophils % (Manual) (0.7-5.8) % Basophils % (Manual) (0.1-1.2) Platelet Estimate Plt Morphology Comment RBC Morph Comment PT (9.5-12.1) SECONDS INR APTT 29 (24-31) SECONDS Sodium 134 L (136-145) mEq/L Potassium 4.6 (3.5-5.1) mEq/L Chloride 99 (98-107) mEq/L Carbon Dioxide 25 (21-32) mEq/L Anion Gap 14.6 (5-15) BUN 19 H (7-18) mg/dL Creatinine 0.8 (0.55-1.02) mg/dL Est Cr Clr Drug Dosing TNP Estimated GFR (MDRD) > 60 (>60) mL/min BUN/Creatinine Ratio 23.8 H (14-18) Glucose 131 H (83-115) mg/dL Lactic Acid (0.4-2.0) mmol/L Calcium 9.7 (8.5-10.1) mg/dL Magnesium 1.9 (1.8-2.4) mg/dl Total Bilirubin 0.3 (0.2-1.0) mg/dL AST 28 (15-37) U/L ALT 32 (14-59) U/L Alkaline Phosphatase 111 (46-116) U/L CK-MB (CK-2) 1.9 (0-3.6) ng/ml Troponin I < 0.017 (0.00-0.056) ng/mL C-Reactive Protein 3.5 H* (<1.0) mg/dL NT-Pro-B Natriuret Pep 4878 H (0-450) pg/mL Total Protein 8.0 (6.4-8.2) g/dl Albumin 3.0 L (3.4-5.0) g/dl Globulin 5.0 gm/dL Albumin/Globulin Ratio 0.6 L (1-2) Urine Color (Yellow) Urine Appearance (Clear) Urine pH (5.0-8.0) Ur Specific [place] (1.005-1.030) Urine Protein (Negative) Urine Glucose (UA) (Negative) Urine Ketones (Negative) Urine Occult Blood (Negative) Urine Nitrite (Negative) Urine Bilirubin (Negative) Urine Urobilinogen (0.2-1.0) Ur Leukocyte Esterase (Negative) Urine RBC (0-5) /hpf Urine WBC (0-5) /hpf Ur Epithelial Cells (0-5) /hpf Urine Bacteria (FEW) /hpf Urine Mucus (FEW) /hpf 09/01/18 Range/Units 12:08 WBC (3.98-10.04) K/mm3 RBC (3.98-5.22) M/mm3 Hgb (11.2-15.7) gm/L Hct (34.1-44.9) % MCV (79.4-94.8) fl MCH (25.6-32.2) pg MCHC (32.2-35.5) g/dl RDW Std Deviation (36.4-46.3) fL Plt Count (182-369) K/mm3 MPV (9.4-12.3) fl Neutrophils % (Manual) (40-60) % Band Neutrophils % (0-10) % Lymphocytes % (Manual) (20-40) % Atypical Lymphs % % Monocytes % (Manual) (2-10) % Eosinophils % (Manual) (0.7-5.8) % Basophils % (Manual) (0.1-1.2) Platelet Estimate Plt Morphology Comment RBC Morph Comment PT (9.5-12.1) SECONDS INR APTT (24-31) SECONDS Sodium (136-145) mEq/L Potassium (3.5-5.1) mEq/L Chloride (98-107) mEq/L Carbon Dioxide (21-32) mEq/L Anion Gap (5-15) BUN (7-18) mg/dL Creatinine (0.55-1.02) mg/dL Est Cr Clr Drug Dosing Estimated GFR (MDRD) (>60) mL/min BUN/Creatinine Ratio (14-18) Glucose (83-115) mg/dL Lactic Acid (0.4-2.0) mmol/L Calcium (8.5-10.1) mg/dL Magnesium (1.8-2.4) mg/dl Total Bilirubin (0.2-1.0) mg/dL AST (15-37) U/L ALT (14-59) U/L Alkaline Phosphatase (46-116) U/L CK-MB (CK-2) (0-3.6) ng/ml Troponin I (0.00-0.056) ng/mL C-Reactive Protein (<1.0) mg/dL NT-Pro-B Natriuret Pep (0-450) pg/mL Total Protein (6.4-8.2) g/dl Albumin (3.4-5.0) g/dl Globulin gm/dL Albumin/Globulin Ratio (1-2) Urine Color Light yellow (Yellow) Urine Appearance Clear (Clear) Urine pH 7.0 (5.0-8.0) Ur Specific [place] 1.020 (1.005-1.030) Urine Protein Negative (Negative) Urine Glucose (UA) Negative (Negative) Urine Ketones Negative (Negative) Urine Occult Blood Negative (Negative) Urine Nitrite Negative (Negative) Urine Bilirubin Negative (Negative) Urine Urobilinogen 0.2 (0.2-1.0) Ur Leukocyte Esterase Negative (Negative) Urine RBC 0-5 (0-5) /hpf Urine WBC Not seen (0-5) /hpf Ur Epithelial Cells 0-5 (0-5) /hpf Urine Bacteria Rare (FEW) /hpf Urine Mucus Not seen (FEW) /hpf Result Diagrams: 09/02/18 10:37 09/02/18 10:37 - Problem List (1) PVD (peripheral vascular disease) SNOMED Code(s): 442769957 ICD Code: I73.9 - PERIPHERAL VASCULAR DISEASE, UNSPECIFIED Status: Acute (2) CAD (coronary artery disease) SNOMED Code(s): 57288767 ICD Code: I25.10 - ATHSCL HEART DISEASE OF [place] CORONARY ARTERY W/O ANG PCTRS Status: Acute (3) GERD (gastroesophageal reflux disease) SNOMED Code(s): 131225258 ICD Code: K21.9 - GASTRO-ESOPHAGEAL REFLUX DISEASE WITHOUT ESOPHAGITIS Status: Acute (4) Depression SNOMED Code(s): 54250859 ICD Code: F32.9 - MAJOR DEPRESSIVE DISORDER, SINGLE EPISODE, UNSPECIFIED Status: Acute (5) Sick sinus syndrome SNOMED Code(s): 40666094 ICD Code: I49.5 - SICK SINUS SYNDROME Status: Acute (6) Hypertension SNOMED Code(s): 29781245 ICD Code: I10 - ESSENTIAL (PRIMARY) HYPERTENSION Status: Acute (7) Dementia SNOMED Code(s): 41487589 ICD Code: F03.90 - UNSPECIFIED DEMENTIA WITHOUT BEHAVIORAL DISTURBANCE Status: Acute (8) Dysphagia SNOMED Code(s): 67960753, 449228628 ICD Code: R13.10 - DYSPHAGIA, UNSPECIFIED Status: Chronic Qualifiers: Dysphagia type: unspecified Qualified Code(s): R13.10 - Dysphagia, unspecified Problem List Initiated/Reviewed/Updated: Yes Orders Last 24hrs: Active Orders 24 hr Category Date Time Status Admission Status [Patient Status] [ADT] Routine ADT 09/01/18 14:11 Active EKG Documentation Completion [RC] STAT Care 09/01/18 09:15 Active Insert [place] Catheter [Insert Urinary Catheter] [OM.PC] Care 09/01/18 12:15 Ordered Q24H Oxygen Therapy [RC] ASDIRECTED Care 09/01/18 09:15 Active Peripheral IV Care [RC] . DIRECTED Care 09/01/18 14:11 Active Urinary Catheter Assessment [RC] ASDIRECTED Care 09/01/18 12:13 Active CULTURE BLOOD [BC] Stat Lab 09/01/18 09:49 Received CULTURE BLOOD [BC] Stat Lab 09/01/18 10:10 Received Dextrose 5%-0.9% NaCl [Dextrose 5%-Normal Saline] 1,000 Med 09/01/18 09:15 Active ml IV ASDIRECTED Sodium Chloride 0.9% [Saline Flush] Med 09/01/18 14:11 Active 10 ml FLUSH ASDIRECTED PRN Blood Culture x2 Reflex Set [OM.PC] Stat Oth 09/01/18 09:16 Ordered Peripheral IV Insertion Adult [OM.PC] Stat Oth 09/01/18 14:11 Ordered Medication Orders Dextrose/Sodium Chloride (Dextrose 5%-Normal Saline) 1,000 mls @ 75 mls/hr IV ASDIRECTED ERICK Last Admin: 09/01/18 10:38 Dose: 75 mls/hr Sodium Chloride (Saline Flush) 10 ml FLUSH ASDIRECTED PRN PRN Reason: Keep Vein Open Assessment/Plan Comment:: Impression: Cervical neck pain, NOS History of dysphagia, tolerating mechanical soft diet Infectious source, unknown Chronic HTN PVD CAD HLD GERD Dementia Plan: Infectious work up Confirm diet Meds per PEG tube Swallow eval IVF Pain meds Home meds Daily Labs DVT/GI prophylaxis
[2018-09-01] MEDS ORDERED: Acetaminophen 325 MG Tab GTUBE PRN (20:19)
[2018-09-01] MEDS ORDERED: Clotrimazole 1% Crm 30 GM Tube TOP PRN (20:19)
[2018-09-01] MEDS ORDERED: hydrALAZINE 20 MG/ML SDV IVPUSH PRN (20:25)
[2018-09-01] MEDS ORDERED: Metoprolol Tartrate 5 MG/5 ML SDV IVPUSH PRN (20:25)
[2018-09-01] MEDS ORDERED: Temazepam 7.5 MG Cap PO PRN (20:26)
[2018-09-01] MEDS: Metoprolol Tartrate 100 MG Tab GTUBE SCH (23:15)
[2018-09-01] MEDS: Multivitamins,Therapeutic Tab SCH (23:17)
[2018-09-01] MEDS: cloNIDine 0.1 MG Tab GTUBE SCH (23:20)
[2018-09-02] MEDS ORDERED: ENTERAL NUTRITION FORMULA GTUBE SCH ×2 (09:00→16:00)
[2018-09-02] MEDS: [UNRECOGNIZED DRUG - OTHER] GTUBE SCH ×5 (10:30→20:40)
[2018-09-02] MEDS: DOCUSATE SODIUM GTUBE SCH ×3 (10:32→20:40)
[2018-09-02] MEDS: GABAPENTIN GTUBE SCH ×3 (10:33→20:40)
[2018-09-02] MEDS: Clopidogrel 75 MG Tab SCH (10:44)
[2018-09-02] MEDS: PROTEIN SUPPLEMENT GTUBE SCH ×3 (10:44→20:40)
[2018-09-02] MEDS: Simvastatin 10 MG Tab GTUBE SCH (10:46)
[2018-09-02] MEDS: Aspirin 81 MG Tab.Chew GTUBE SCH (10:48)
[2018-09-02] MEDS: Amiodarone 200 MG Tab GTUBE SCH (10:50)
[2018-09-02] MEDS: Metoprolol Tartrate 100 MG Tab GTUBE SCH ×2 (10:51→20:34)
[2018-09-02] MEDS ORDERED: cloNIDine 0.1 MG Tab PO ONE (10:53)
[2018-09-02] MEDS: cloNIDine 0.1 MG Tab GTUBE SCH ×2 (11:07→20:36)
[2018-09-02] MEDS: Dextrose 5%-0.9% NaCl 1,000 ML IV SCH (13:34)
[2018-09-02] MEDS ORDERED: Magnesium Sulfate/Water 4 GM in Premix Bag 1 BAG IV ONE (15:23)
[2018-09-02] MEDS ORDERED: Sodium Chloride 0.9% 1,000 ML IV SCH ×2 (15:30→21:30)
--- NOTE | 2018-09-02 18:43 | PCM.PN ---
- General Info Date of Service: 09/02/18 Subjective Update: Patient refused labs this am, finally agreed; wants to go home. Functional Status: Reports: Pain Controlled, Tolerating Diet, Urinating - Review of Systems General: Reports: No Symptoms HEENT: Reports: No Symptoms Pulmonary: Reports: No Symptoms Cardiovascular: Reports: No Symptoms Gastrointestinal: Reports: No Symptoms Genitourinary: Reports: No Symptoms Musculoskeletal: Reports: No Symptoms Skin: Reports: No Symptoms Neurological: Reports: No Symptoms Psychiatric: Reports: No Symptoms - Patient Data Vitals - Most Recent: Last Vital Signs Temp 36.7 C 09/02/18 15:59 Pulse 72 09/02/18 15:59 Resp 16 09/02/18 15:59 BP 131/87 09/02/18 15:59 Pulse Ox 97 09/02/18 15:59 Weight - Most Recent: 64.365 kg I&O - Last 24 Hours: Intake & Output 09/02/18 09/02/18 09/02/18 06:59 14:59 22:59 Intake Total 1604 303 125 Balance 1604 303 125 Lab Results Last 24 Hours: Laboratory Results - last 24 hr 09/01/18 09/01/18 09/02/18 Range/Units 17:20 19:30 10:37 WBC (3.98-10.04) K/mm3 RBC (3.98-5.22) M/mm3 Hgb (11.2-15.7) gm/L Hct (34.1-44.9) % MCV (79.4-94.8) fl MCH (25.6-32.2) pg MCHC (32.2-35.5) g/dl RDW Std Deviation (36.4-46.3) fL Plt Count (182-369) K/mm3 MPV (9.4-12.3) fl Neut % (Auto) (34.0-71.1) % Lymph % (Auto) (19.3-51.7) % [place] % (Auto) (4.7-12.5) % Eos % (Auto) (0.7-5.8) Baso % (Auto) (0.1-1.2) % Neut # (Auto) (1.56-6.13) K/mm3 Lymph # (Auto) (1.18-3.74) K/mm3 [place] # (Auto) (0.24-0.36) K/mm3 Eos # (Auto) (0.04-0.36) K/mm3 Baso # (Auto) (0.01-0.08) K/mm3 Sodium (136-145) mEq/L Potassium (3.5-5.1) mEq/L Chloride (98-107) mEq/L Carbon Dioxide (21-32) mEq/L Anion Gap (5-15) BUN (7-18) mg/dL Creatinine (0.55-1.02) mg/dL Est Cr Clr Drug Dosing mL/min Estimated GFR (MDRD) (>60) mL/min BUN/Creatinine Ratio (14-18) Glucose (83-115) mg/dL Lactic Acid 2.6 H 2.9 H (0.4-2.0) mmol/L Calcium (8.5-10.1) mg/dL Magnesium (1.8-2.4) mg/dl C-Reactive Protein (<1.0) mg/dL MRSA (PCR) Negative 09/02/18 09/02/18 Range/Units 10:37 10:37 WBC 9.63 (3.98-10.04) K/mm3 RBC 4.71 (3.98-5.22) M/mm3 Hgb 15.5 (11.2-15.7) gm/L Hct 49.2 H (34.1-44.9) % MCV 104.5 H (79.4-94.8) fl MCH 32.9 H (25.6-32.2) pg MCHC 31.5 L (32.2-35.5) g/dl RDW Std Deviation 59.5 H (36.4-46.3) fL Plt Count 169 L (182-369) K/mm3 MPV 11.5 (9.4-12.3) fl Neut % (Auto) 73.1 H (34.0-71.1) % Lymph % (Auto) 18.4 L (19.3-51.7) % [place] % (Auto) 5.9 (4.7-12.5) % Eos % (Auto) 2.3 (0.7-5.8) Baso % (Auto) 0.2 (0.1-1.2) % Neut # (Auto) 7.04 H (1.56-6.13) K/mm3 Lymph # (Auto) 1.77 (1.18-3.74) K/mm3 [place] # (Auto) 0.57 H (0.24-0.36) K/mm3 Eos # (Auto) 0.22 (0.04-0.36) K/mm3 Baso # (Auto) 0.02 (0.01-0.08) K/mm3 Sodium 140 (136-145) mEq/L Potassium 3.8 (3.5-5.1) mEq/L Chloride 105 (98-107) mEq/L Carbon Dioxide 22 (21-32) mEq/L Anion Gap 16.8 H (5-15) BUN 13 (7-18) mg/dL Creatinine 0.9 (0.55-1.02) mg/dL Est Cr Clr Drug Dosing 35.49 mL/min Estimated GFR (MDRD) 59 (>60) mL/min BUN/Creatinine Ratio 14.4 (14-18) Glucose 170 H (83-115) mg/dL Lactic Acid (0.4-2.0) mmol/L Calcium 9.2 (8.5-10.1) mg/dL Magnesium 1.6 L (1.8-2.4) mg/dl C-Reactive Protein 6.7 H* (<1.0) mg/dL MRSA (PCR) James Results Last 24 Hours: Microbiology 09/02/18 15:15 Influenza Type A Antigen Screen - Final Nasopharyngeal Swab NEGATIVE INFLUENZA A VIRUS AG Influenza Type B Antigen Screen - Final NEGATIVE INFLUENZA B VIRUS AG 09/01/18 10:10 Aerobic Blood Culture - Preliminary Blood - Venous - Lab Draw NO GROWTH AFTER 1 DAY Anaerobic Blood Culture - Preliminary NO GROWTH AFTER 1 DAY 09/01/18 09:49 Aerobic Blood Culture - Preliminary Blood - Venous NO GROWTH AFTER 1 DAY Anaerobic Blood Culture - Preliminary NO GROWTH AFTER 1 DAY Med Orders - Current: Current Medications Acetaminophen (Tylenol) 650 mg GTUBE TID PRN PRN Reason: Pain Amiodarone HCl (Cordarone) 200 mg GTUBE DAILY [facility] Last Admin: 09/02/18 10:50 Dose: 200 mg Aspirin (Aspirin) 81 mg GTUBE DAILY [facility] Last Admin: 09/02/18 10:48 Dose: 81 mg Clonidine HCl (Catapres) 0.2 mg GTUBE BID [facility] Last Admin: 09/02/18 11:07 Dose: Not Given Clopidogrel Bisulfate (Plavix) 75 mg .XX DAILY [facility] Last Admin: 09/02/18 10:44 Dose: 75 mg Clotrimazole (Lotrimin Af 1% Crm) 1 gm TOP DAILY PRN PRN Reason: flare ups in abdominal rolls Hydralazine HCl (Apresoline) 20 mg IVPUSH Q6H PRN PRN Reason: Hypertension Magnesium Sulfate 4 gm/ Premix 50 mls @ 12.5 mls/hr IV ONETIME ONE Stop: 09/02/18 19:22 Last Admin: 09/02/18 15:47 Dose: 12.5 mls/hr Sodium Chloride (Normal Saline) 1,000 mls @ 100 mls/hr IV ASDIRECTED [facility] Stop: 09/02/18 21:30 Last Admin: 09/02/18 15:47 Dose: 100 mls/hr Sodium Chloride (Normal Saline) 1,000 mls @ 75 mls/hr IV ASDIRECTED [facility] Metoprolol Tartrate (Lopressor) 100 mg GTUBE BID [facility] Last Admin: 09/02/18 10:51 Dose: 100 mg Metoprolol Tartrate (Lopressor) 5 mg IVPUSH Q6H PRN PRN Reason: HR>110 Multivitamins (Thera) 1 each .XX BEDTIME [facility] Last Admin: 09/01/18 23:17 Dose: 1 each Prosource Tf Liquid (Packet) 0 each GTUBE BID [facility] Last Admin: 09/02/18 11:08 Dose: Not Given Docusate Sodium Liquid Patients Own Med 0 each GTUBE BID [facility] Last Admin: 09/02/18 10:33 Dose: Not Given Gabapentin Suspension Patients Own Med 0 each GTUBE TID [facility] Last Admin: 09/02/18 15:56 Dose: Not Given Purified Water 200 Ml Per Home Regimen 0 each GTUBE QID [facility] Last Admin: 09/02/18 16:01 Dose: 1 each Simvastatin (Zocor) 5 mg GTUBE DAILY [facility] Last Admin: 09/02/18 10:46 Dose: 5 mg Sodium Chloride (Saline Flush) 10 ml FLUSH ASDIRECTED PRN PRN Reason: Keep Vein Open Temazepam (Restoril) 7.5 mg PO BEDTIME PRN PRN Reason: Insomnia Discontinued Medications Clonidine HCl (Catapres) 0.2 mg PO ONETIME ONE Stop: 09/02/18 10:54 Last Admin: 09/02/18 11:01 Dose: 0.2 mg Furosemide (Lasix) 60 mg IVPUSH NOW ONE Stop: 09/01/18 09:33 Last Admin: 09/01/18 10:38 Dose: 60 mg Dextrose/Sodium Chloride (Dextrose 5%-Normal Saline) 1,000 mls @ 75 mls/hr IV ASDIRECTED [facility] Last Admin: 09/02/18 13:34 Dose: 75 mls/hr Ceftriaxone Sodium 1 gm/ (Sodium Chloride) 100 mls @ 200 mls/hr IV ONETIME ONE Stop: 09/01/18 12:42 Last Admin: 09/01/18 13:26 Dose: 200 mls/hr Isosource 1.5 Marcell[place] Liquid 125ml Patients Own Med 0 each GTUBE DAILY [facility] Last Admin: 09/02/18 11:30 Dose: Not Given Isosource 1.5 [place] Liquid 125ml Patients Own Med 0 each GTUBE DAILY@1600 [facility] Last Admin: 09/02/18 16:30 Dose: Not Given - Exam Quality Assessment: DVT Prophylaxis General: Alert, Oriented, Cooperative HEENT: Pupils Equal, Pupils Reactive, EOMI Neck: Trachea Midline, No JVD Lungs: Normal Respiratory Effort Cardiovascular: Regular Rate, Regular Rhythm GI/Abdominal Exam: Normal Bowel Sounds, Soft, Non-Tender, No Organomegaly, No Distention (Female) Exam: Deferred Back Exam: Normal Inspection Extremities: Normal Inspection, Non-Tender, Normal Capillary Refill Skin: Warm Neurological: No New Focal Deficit Psy/Mental Status: Alert, Normal Affect, Normal Mood - Problem List Review Problem List Initiated/Reviewed/Updated: Yes - My Orders Last 24 Hours: My Active Orders 09/01/18 20:19 Acetaminophen [Tylenol] 650 mg GTUBE TID PRN Clotrimazole [Lotrimin AF 1% Crm] 1 gm TOP DAILY PRN 09/01/18 20:25 Metoprolol Tartrate [Lopressor] 5 mg IVPUSH Q6H PRN hydrALAZINE [Apresoline] 20 mg IVPUSH Q6H PRN 09/01/18 20:26 Temazepam [Restoril] 7.5 mg PO BEDTIME PRN 09/01/18 21:00 Metoprolol Tartrate [Lopressor] 100 mg GTUBE BID Multivitamins,Therapeutic [Thera] 1 each .XX BEDTIME Patient's Own Medication [Ptom] 0 each GTUBE BID Patient's Own Medication [Ptom] 0 each GTUBE BID Patient's Own Medication [Ptom] 0 each GTUBE QID Patient's Own Medication [Ptom] 0 each GTUBE TID cloNIDine [Catapres] 0.2 mg GTUBE BID 09/02/18 09:00 Amiodarone [Cordarone] 200 mg GTUBE DAILY Aspirin 81 mg GTUBE DAILY Clopidogrel [Plavix] 75 mg .XX DAILY Simvastatin [Zocor] 5 mg GTUBE DAILY 09/02/18 10:42 Isolation [COMM] Routine 09/02/18 15:15 RESPIRATORY PANEL Routine 09/02/18 15:23 Magnesium Sulfate/Water [Magnesium Sulfate 4 GM in Water 50 ML] 4 gm Premix Bag 1 bag IV ONETIME 09/02/18 15:30 Sodium Chloride 0.9% [Normal Saline] 1,000 ml IV ASDIRECTED 09/02/18 16:22 Enteral Feedings [RC] 1600 09/02/18 20:00 LACTIC ACID [CHEM] Routine 09/02/18 21:30 Sodium Chloride 0.9% [Normal Saline] 1,000 ml IV ASDIRECTED 09/02/18 Breakfast National Dysphagia Diet [DIET] Tube Feeding Adult Diet [DIET] 09/03/18 05:00 BMP [BASIC METABOLIC PANEL,BMP] [CHEM] DAILY CBC WITH AUTO DIFF [HEME] DAILY CRP [C-REACTIVE PROTEIN] [CHEM] DAILY MAGNESIUM [CHEM] DAILY 09/04/18 05:00 BMP [BASIC METABOLIC PANEL,BMP] [CHEM] DAILY CBC WITH AUTO DIFF [HEME] DAILY CRP [C-REACTIVE PROTEIN] [CHEM] DAILY MAGNESIUM [CHEM] DAILY 09/04/18 09:00 Echo Comp wo Cont [US] Routine 09/05/18 05:00 BMP [BASIC METABOLIC PANEL,BMP] [CHEM] DAILY CBC WITH AUTO DIFF [HEME] DAILY MAGNESIUM [CHEM] DAILY 09/06/18 05:00 BMP [BASIC METABOLIC PANEL,BMP] [CHEM] DAILY CBC WITH AUTO DIFF [HEME] DAILY MAGNESIUM [CHEM] DAILY - Plan Plan:: Impression: Cervical neck pain, NOS History of dysphagia, tolerating mechanical soft diet Infectious source, unknown Chronic HTN PVD CAD HLD GERD Dementia Plan: Infectious work up Confirm diet Meds per PEG tube Swallow eval IVF Pain meds Home meds Daily Labs DVT/GI prophylaxis
[2018-09-02] MEDS: Enoxaparin 40 MG/0.4 ML Syringe SUBCUT SCH (20:12)
[2018-09-02] MEDS: Multivitamins,Therapeutic Tab SCH (20:12)
[2018-09-03] MEDS: Metoprolol Tartrate 100 MG Tab GTUBE SCH ×2 (09:24→21:59)
[2018-09-03] MEDS: Aspirin 81 MG Tab.Chew GTUBE SCH (09:25)
[2018-09-03] MEDS: Simvastatin 10 MG Tab GTUBE SCH (09:25)
[2018-09-03] MEDS: Amiodarone 200 MG Tab GTUBE SCH (09:25)
[2018-09-03] MEDS: cloNIDine 0.1 MG Tab GTUBE SCH ×2 (09:25→21:59)
[2018-09-03] MEDS: Clopidogrel 75 MG Tab SCH (09:26)
[2018-09-03] MEDS: GABAPENTIN GTUBE SCH (09:26)
[2018-09-03] MEDS: [UNRECOGNIZED DRUG - OTHER] GTUBE SCH ×4 (09:26→22:00)
[2018-09-03] MEDS: PROTEIN SUPPLEMENT GTUBE SCH ×2 (09:26→21:58)
[2018-09-03] MEDS: DOCUSATE SODIUM GTUBE SCH (09:26)
[2018-09-03] MEDS: Gabapentin 100 MG Cap GTUBE SCH ×3 (10:41→21:59)
[2018-09-03] MEDS: Docusate Sodium 100 MG Cap SCH ×2 (10:41→21:59)
--- NOTE | 2018-09-03 17:19 | PCM.PN ---
- General Info Date of Service: 09/03/18 Functional Status: Reports: Tolerating Diet, Urinating - Review of Systems General: Reports: No Symptoms HEENT: Reports: No Symptoms Pulmonary: Reports: No Symptoms Cardiovascular: Reports: No Symptoms Gastrointestinal: Reports: No Symptoms Genitourinary: Reports: No Symptoms Musculoskeletal: Reports: No Symptoms Skin: Reports: No Symptoms Neurological: Reports: No Symptoms Psychiatric: Reports: No Symptoms - Patient Data Vitals - Most Recent: Last Vital Signs Temp 36.3 C 09/03/18 16:21 Pulse 70 09/03/18 16:21 Resp 17 09/03/18 16:21 BP 149/77 H 09/03/18 16:21 Pulse Ox 95 09/03/18 16:21 Weight - Most Recent: 66.95 kg I&O - Last 24 Hours: Intake & Output 09/03/18 09/03/18 09/03/18 06:59 14:59 22:59 Intake Total 850 523 525 Balance 850 523 525 James Results Last 24 Hours: Microbiology 09/01/18 10:10 Aerobic Blood Culture - Preliminary Blood - Venous - Lab Draw NO GROWTH AFTER 2 DAYS Anaerobic Blood Culture - Preliminary NO GROWTH AFTER 2 DAYS 09/01/18 09:49 Aerobic Blood Culture - Preliminary Blood - Venous NO GROWTH AFTER 2 DAYS Anaerobic Blood Culture - Preliminary NO GROWTH AFTER 2 DAYS 09/02/18 15:15 Influenza Type A Antigen Screen - Final Nasopharyngeal Swab NEGATIVE INFLUENZA A VIRUS AG Influenza Type B Antigen Screen - Final NEGATIVE INFLUENZA B VIRUS AG Med Orders - Current: Current Medications Acetaminophen (Tylenol) 650 mg GTUBE TID PRN PRN Reason: Pain Amiodarone HCl (Cordarone) 200 mg GTUBE DAILY [facility] Last Admin: 09/03/18 09:25 Dose: 200 mg Aspirin (Aspirin) 81 mg GTUBE DAILY [facility] Last Admin: 09/03/18 09:25 Dose: 81 mg Clonidine HCl (Catapres) 0.2 mg GTUBE BID [facility] Last Admin: 09/03/18 09:25 Dose: 0.2 mg Clopidogrel Bisulfate (Plavix) 75 mg .XX DAILY [facility] Last Admin: 09/03/18 09:26 Dose: 75 mg Clotrimazole (Lotrimin Af 1% Crm) 1 gm TOP DAILY PRN PRN Reason: flare ups in abdominal rolls Docusate Sodium (Colace) 100 mg .XX BID [facility] Last Admin: 09/03/18 10:41 Dose: 100 mg Enoxaparin Sodium (Lovenox) 40 mg SUBCUT Q24H [facility] Last Admin: 09/02/18 20:12 Dose: 40 mg Gabapentin (Neurontin) 100 mg GTUBE TID [facility] Last Admin: 09/03/18 14:48 Dose: 100 mg Hydralazine HCl (Apresoline) 20 mg IVPUSH Q6H PRN PRN Reason: Hypertension Metoprolol Tartrate (Lopressor) 100 mg GTUBE BID [facility] Last Admin: 09/03/18 09:24 Dose: 100 mg Metoprolol Tartrate (Lopressor) 5 mg IVPUSH Q6H PRN PRN Reason: HR>110 Multivitamins (Thera) 1 each .XX BEDTIME [facility] Last Admin: 09/02/18 20:12 Dose: 1 each Prosource Tf Liquid (Packet) 0 each GTUBE BID [facility] Last Admin: 09/03/18 09:26 Dose: 1 each Purified Water 200 Ml Per Home Regimen 0 each GTUBE QID [facility] Last Admin: 09/03/18 16:20 Dose: 1 each Simvastatin (Zocor) 5 mg GTUBE DAILY [facility] Last Admin: 09/03/18 09:25 Dose: 5 mg Sodium Chloride (Saline Flush) 10 ml FLUSH ASDIRECTED PRN PRN Reason: Keep Vein Open Temazepam (Restoril) 7.5 mg PO BEDTIME PRN PRN Reason: Insomnia Discontinued Medications Clonidine HCl (Catapres) 0.2 mg PO ONETIME ONE Stop: 09/02/18 10:54 Last Admin: 09/02/18 11:01 Dose: 0.2 mg Furosemide (Lasix) 60 mg IVPUSH NOW ONE Stop: 09/01/18 09:33 Last Admin: 09/01/18 10:38 Dose: 60 mg Dextrose/Sodium Chloride (Dextrose 5%-Normal Saline) 1,000 mls @ 75 mls/hr IV ASDIRECTED [facility] Last Admin: 09/02/18 13:34 Dose: 75 mls/hr Ceftriaxone Sodium 1 gm/ (Sodium Chloride) 100 mls @ 200 mls/hr IV ONETIME ONE Stop: 09/01/18 12:42 Last Admin: 09/01/18 13:26 Dose: 200 mls/hr Magnesium Sulfate 4 gm/ Premix 50 mls @ 12.5 mls/hr IV ONETIME ONE Stop: 09/02/18 19:22 Last Admin: 09/02/18 15:47 Dose: 12.5 mls/hr Sodium Chloride (Normal Saline) 1,000 mls @ 100 mls/hr IV ASDIRECTED ERICK Stop: 09/02/18 21:30 Last Admin: 09/02/18 15:47 Dose: 100 mls/hr Sodium Chloride (Normal Saline) 1,000 mls @ 75 mls/hr IV ASDIRECTED [facility] Docusate Sodium Liquid Patients Own Med 0 each GTUBE BID [facility] Last Admin: 09/03/18 09:26 Dose: Not Given Gabapentin Suspension Patients Own Med 0 each GTUBE TID [facility] Last Admin: 09/03/18 09:26 Dose: Not Given Isosource 1.5 Marcello Liquid 125ml Patients Own Med 0 each GTUBE DAILY [facility] Last Admin: 09/02/18 11:30 Dose: Not Given Isosource 1.5 Marcello Liquid 125ml Patients Own Med 0 each GTUBE DAILY@1600 [facility] Last Admin: 09/02/18 16:30 Dose: Not Given - Exam Quality Assessment: DVT Prophylaxis General: Alert, Oriented, No Acute Distress HEENT: Pupils Equal, Pupils Reactive, EOMI Neck: Trachea Midline, No JVD Lungs: Normal Respiratory Effort Cardiovascular: Regular Rate GI/Abdominal Exam: Normal Bowel Sounds, Soft, Non-Tender, No Organomegaly, No Distention (Female) Exam: Deferred Back Exam: Normal Inspection Extremities: Normal Inspection, Non-Tender, Normal Capillary Refill Skin: Warm Neurological: No New Focal Deficit Psy/Mental Status: Alert, Labile Mood - Problem List Review Problem List Initiated/Reviewed/Updated: Yes - My Orders Last 24 Hours: My Active Orders 09/02/18 16:22 Enteral Feedings [RC] 1600 09/02/18 20:00 Enoxaparin [Lovenox] 40 mg SUBCUT Q24H 09/03/18 10:00 Docusate Sodium [Colace] 100 mg .XX BID Gabapentin [Neurontin] 100 mg GTUBE TID 09/04/18 09:00 Echo Comp wo Cont [US] Routine - Plan Plan:: Impression: Cervical neck pain, NOS--resolved History of dysphagia, tolerating mechanical soft diet Infectious source, unknown--negative work up Chronic HTN PVD CAD HLD GERD Dementia Plan: Unable to DC today, SNF declines weekend return. Tuesday DC anticipated Infectious work up Confirm diet Meds per PEG tube Swallow eval IVF Pain meds Home meds Daily Labs DVT/GI prophylaxis
[2018-09-03] MEDS: Enoxaparin 40 MG/0.4 ML Syringe SUBCUT SCH (21:58)
[2018-09-03] MEDS: Multivitamins,Therapeutic Tab SCH (21:59)
[2018-09-04 08:46] VITALS: BP 115/75
[2018-09-04] MEDS: Docusate Sodium 100 MG Cap SCH (09:07)
[2018-09-04] MEDS: Metoprolol Tartrate 100 MG Tab GTUBE SCH (09:07)
[2018-09-04] MEDS: Aspirin 81 MG Tab.Chew GTUBE SCH (09:08)
[2018-09-04] MEDS: Amiodarone 200 MG Tab GTUBE SCH (09:08)
[2018-09-04] MEDS: cloNIDine 0.1 MG Tab GTUBE SCH (09:08)
[2018-09-04] MEDS: Clopidogrel 75 MG Tab SCH (09:09)
[2018-09-04] MEDS: Simvastatin 10 MG Tab GTUBE SCH (09:09)
[2018-09-04] MEDS: Gabapentin 100 MG Cap GTUBE SCH ×2 (09:09→14:12)
[2018-09-04] MEDS: [UNRECOGNIZED DRUG - OTHER] GTUBE SCH ×2 (09:15→13:09)
[2018-09-04] MEDS: PROTEIN SUPPLEMENT GTUBE SCH (10:14)
--- NOTE | 2018-09-04 14:49 | PCM.DCSUM1 ---
Discharge Summary - Hospital Course Free Text/Narrative:: 88 year old female with brief unremarkable work up. Wanted to leave the moment she was admitted. Labile mood, tearful and demanding, a phone conference occurred on Tuesday morning with her son, Val with the patient as well as her nurse. Ultimately she decided to stay and allow blood draws. However it was short lived, it began the next day, Tuesday. She refused any labs draws and insisted on going back to her "home". Unfortunately [facility] refused giving three different reasons in the same conversation to the charge nurse, see nursing notes. She was discharged on 09/04/18. A repeat swallow evauation was performed prior to DC. As a result, she was DCd with a NPO diet. A video swallow is recommended, see SP notes. HPI Initial Comments: 88 year old female resident of [facility] presents with abrupt neck pain and elevated blood pressure. The patient has a decrease oxygen saturation; there has been no fever/chills, nausea/vomiting, CP, syncopal/presyncopal episodes. No known sick contacts or recent travel. The patient has had dysphagia, and recently began a mechanical soft diet after three years. The patient has a PMH of HTN, CAD/PVD, A Fib/ SSS, and CHF. She has dementia, NOS; LLE amputation, above the knee. O Diagnosis: Stroke: No - Discharge Data Discharge Date: 09/04/18 Discharge Disposition: DC/Tfer to SNF 03 Condition: Good - Discharge Diagnosis/Problem(s) (1) Acute exacerbation of CHF (congestive heart failure) SNOMED Code(s): 65594890 ICD Code: I50.9 - HEART FAILURE, UNSPECIFIED Status: Acute Qualifiers: Heart failure type: diastolic Qualified Code(s): I50.33 - Acute on chronic diastolic (congestive) heart failure (2) Dysphagia SNOMED Code(s): 43585583, 523168439 ICD Code: R13.10 - DYSPHAGIA, UNSPECIFIED Status: Chronic Qualifiers: Dysphagia type: unspecified Qualified Code(s): R13.10 - Dysphagia, unspecified - Patient Summary/Data Consults: Consultations 09/01/18 17:31 Consult to Speech Language Pathology [[employer]DER Evaluation and Treatment] [CONS] Routine OT Evaluation and Treatment [CONS] Routine PT Evaluation and Treatment [CONS] Routine - Patient Instructions Diet: Usual Diet as Tolerated (Resume tube feeds; stop oral ingestion, needs video swallow.), NPO Activity: As Tolerated Driving: Do Not Drive Showering/Bathing: May Shower Notify Provider of: Fever, Increased Pain, Nausea and/or Vomiting - Discharge Plan *PRESCRIPTION DRUG MONITORING PROGRAM REVIEWED*: Not Applicable *COPY OF PRESCRIPTION DRUG MONITORING REPORT IN PATIENT SHANNON: Not Applicable Home Medications: Home Meds Acetaminophen 650 mg GTUBE TID PRN 02/25/17 [History] Amino Ac/Protein Hydr/Whey Pro [Prosource Tf Liquid Packet] 1 oz GTUBE BID 02/25 [History] Amiodarone [Cordarone] 200 mg GTUBE DAILY 02/25/17 [History] Aspirin 81 mg GTUBE DAILY 02/25/17 [History] Clopidogrel [Plavix] 75 mg GTUBE DAILY 02/25/17 [History] Docusate Sodium [Diocto] 15 ml GTUBE BID 02/25/17 [History] Gabapentin 100 mg PO TID 02/25/17 [History] Metoprolol Tartrate 100 mg GTUBE BID 02/25/17 [History] atorvaSTATin [Lipitor] 5 mg GTUBE DAILY 02/25/17 [History] cloNIDine [Catapres] 0.2 mg GTUBE BID 02/25/17 [History] Furosemide [Lasix Oral Soln] 2 ml PO DAILY 09/01/18 [History] Ketoconazole [Nizoral 2% Crm] 1 applic TOP DAILY PRN 09/01/18 [History] Lactose-Reduced Food/Fiber [Isosource 1.5 Marcello Liquid] 125 ml PEGTUBE DAILY 09/01 [History] Multivitamin [Daily Multiple Vitamin] 1 tab PEGTUBE BEDTIME 09/01/18 [History] Water [Purified Water] 200 ml PEGTUBE QID 09/01/18 [History] Oxygen Therapy Mode: Room Air Patient Handouts: Shortness of Breath, Adult, [id number] Referrals: Bret Torres MD [Physician] - 09/11/18 2:30 pm - Discharge Summary/Plan Comment DC Time >30 min.: No Discharge Summary/Plan Comment: Impression: Cervical neck pain, NOS--resolved History of dysphagia, tolerating mechanical soft diet Infectious source, unknown--negative work up Chronic HTN PVD CAD HLD GERD Dementia Plan: Unable to DC today, SNF declines weekend return. Tuesday DC anticipated Infectious work up Confirm diet Meds per PEG tube Swallow eval IVF Pain meds Home meds Daily Labs DVT/GI prophylaxis - General Info Date of Service: 10/02/18 Functional Status: Reports: Pain Controlled, Urinating - Review of Systems General: Reports: No Symptoms HEENT: Reports: No Symptoms Pulmonary: Reports: No Symptoms Cardiovascular: Reports: No Symptoms Gastrointestinal: Reports: No Symptoms Genitourinary: Reports: No Symptoms Musculoskeletal: Reports: No Symptoms Skin: Reports: No Symptoms Neurological: Reports: No Symptoms Psychiatric: Reports: No Symptoms - Patient Data Vitals - Most Recent: Last Vital Signs Temp 36.4 C 09/04/18 03:50 Pulse 73 09/04/18 09:07 Resp 18 09/04/18 08:02 BP 115/75 09/04/18 09:08 Pulse Ox 92 L 09/04/18 08:02 Weight - Most Recent: 67.767 kg I&O - Last 24 hours: Intake & Output 09/03/18 09/04/18 09/04/18 22:59 06:59 14:59 Intake Total 645 200 160 Balance 645 200 160 JAMES Results - Last 24 hrs: Microbiology 09/01/18 10:10 Aerobic Blood Culture - Preliminary Blood - Venous - Lab Draw NO GROWTH AFTER 3 DAYS Anaerobic Blood Culture - Preliminary NO GROWTH AFTER 3 DAYS 09/01/18 09:49 Aerobic Blood Culture - Preliminary Blood - Venous NO GROWTH AFTER 3 DAYS Anaerobic Blood Culture - Preliminary NO GROWTH AFTER 3 DAYS Med Orders - Current: Current Medications Acetaminophen (Tylenol) 650 mg GTUBE TID PRN PRN Reason: Pain Amiodarone HCl (Cordarone) 200 mg GTUBE DAILY [facility] Last Admin: 09/04/18 09:08 Dose: 200 mg Aspirin (Aspirin) 81 mg GTUBE DAILY [facility] Last Admin: 09/04/18 09:08 Dose: 81 mg Clonidine HCl (Catapres) 0.2 mg GTUBE BID [facility] Last Admin: 09/04/18 09:08 Dose: 0.2 mg Clopidogrel Bisulfate (Plavix) 75 mg .XX DAILY [facility] Last Admin: 09/04/18 09:09 Dose: 75 mg Clotrimazole (Lotrimin Af 1% Crm) 1 gm TOP DAILY PRN PRN Reason: flare ups in abdominal rolls Docusate Sodium (Colace) 100 mg .XX BID [facility] Last Admin: 09/04/18 09:07 Dose: 100 mg Enoxaparin Sodium (Lovenox) 40 mg SUBCUT Q24H [facility] Last Admin: 09/03/18 21:58 Dose: 40 mg Gabapentin (Neurontin) 100 mg GTUBE TID [facility] Last Admin: 09/04/18 14:12 Dose: 100 mg Hydralazine HCl (Apresoline) 20 mg IVPUSH Q6H PRN PRN Reason: Hypertension Metoprolol Tartrate (Lopressor) 100 mg GTUBE BID [facility] Last Admin: 09/04/18 09:07 Dose: 100 mg Metoprolol Tartrate (Lopressor) 5 mg IVPUSH Q6H PRN PRN Reason: HR>110 Multivitamins (Thera) 1 each .XX BEDTIME [facility] Last Admin: 09/03/18 21:59 Dose: 1 each Prosource Tf Liquid (Packet) 0 each GTUBE BID [facility] Last Admin: 09/04/18 10:14 Dose: 1 each Purified Water 200 Ml Per Home Regimen 0 each GTUBE QID [facility] Last Admin: 09/04/18 13:09 Dose: 1 each Simvastatin (Zocor) 5 mg GTUBE DAILY [facility] Last Admin: 09/04/18 09:09 Dose: 5 mg Sodium Chloride (Saline Flush) 10 ml FLUSH ASDIRECTED PRN PRN Reason: Keep Vein Open Temazepam (Restoril) 7.5 mg PO BEDTIME PRN PRN Reason: Insomnia Discontinued Medications Clonidine HCl (Catapres) 0.2 mg PO ONETIME ONE Stop: 09/02/18 10:54 Last Admin: 09/02/18 11:01 Dose: 0.2 mg Furosemide (Lasix) 60 mg IVPUSH NOW ONE Stop: 09/01/18 09:33 Last Admin: 09/01/18 10:38 Dose: 60 mg Dextrose/Sodium Chloride (Dextrose 5%-Normal Saline) 1,000 mls @ 75 mls/hr IV ASDIRECTED [facility] Last Admin: 09/02/18 13:34 Dose: 75 mls/hr Ceftriaxone Sodium 1 gm/ (Sodium Chloride) 100 mls @ 200 mls/hr IV ONETIME ONE Stop: 09/01/18 12:42 Last Admin: 03/29/19 13:26 Dose: 200 mls/hr Magnesium Sulfate 4 gm/ Premix 50 mls @ 12.5 mls/hr IV ONETIME ONE Stop: 09/02/18 19:22 Last Admin: 09/02/18 15:47 Dose: 12.5 mls/hr Sodium Chloride (Normal Saline) 1,000 mls @ 100 mls/hr IV ASDIRECTED ERICK Stop: 09/02/18 21:30 Last Admin: 09/02/18 15:47 Dose: 100 mls/hr Sodium Chloride (Normal Saline) 1,000 mls @ 75 mls/hr IV ASDIRECTED [facility] Docusate Sodium Liquid Patients Own Med 0 each GTUBE BID [facility] Last Admin: 09/03/18 09:26 Dose: Not Given Gabapentin Suspension Patients Own Med 0 each GTUBE TID [facility] Last Admin: 09/03/18 09:26 Dose: Not Given Isosource 1.5 Marcello Liquid 125ml Patients Own Med 0 each GTUBE DAILY [facility] Last Admin: 09/02/18 11:30 Dose: Not Given Isosource 1.5 Marcello Liquid 125ml Patients Own Med 0 each GTUBE DAILY@1600 [facility] Last Admin: 09/02/18 16:30 Dose: Not Given - Exam Quality Assessment: Reports: DVT Prophylaxis General: Reports: Alert, Oriented, No Acute Distress HEENT: Reports: Pupils Equal, Pupils Reactive, EOMI Neck: Reports: Trachea Midline, No JVD Cardiovascular: Reports: Regular Rate GI/Abdominal Exam: Normal Bowel Sounds, Soft, Non-Tender, No Organomegaly, No Distention (Female) Exam: Deferred Rectal (Female) Exam: Deferred Back Exam: Reports: Normal Inspection Extremities: Normal Inspection, Non-Tender, Normal Capillary Refill Skin: Reports: Warm Neurological: Reports: No New Focal Deficit Psy/Mental Status: Reports: Alert
== END 2018-09-04 15:00 | DRG 293 ==
LOC: JD.ED 08:48 → JD.MS 14:13
PROVIDERS: ADMIT Internal Medicine Cardiovascular Disease; ATTEND Internal Medicine Cardiovascular Disease
DX: I11.0 Hypertensive heart disease with heart failure (principal); I50.33 Acute on chronic diastolic (congestive) heart failure; I25.10 Atherosclerotic heart disease of native coronary artery without angina pectoris; I73.9 Peripheral vascular disease, unspecified; E78.00 Pure hypercholesterolemia, unspecified; K59.09 Other constipation; K21.9 Gastro-esophageal reflux disease without esophagitis; R13.10 Dysphagia, unspecified; I48.91 Unspecified atrial fibrillation; M54.2 Cervicalgia; M54.9 Dorsalgia, unspecified; G89.29 Other chronic pain; F32.9 Major depressive disorder, single episode, unspecified; E66.9 Obesity, unspecified; L40.9 Psoriasis, unspecified; E86.9 Volume depletion, unspecified; F03.90 Unspecified dementia, unspecified severity, without behavioral disturbance, psychotic disturbance, mood disturbance, and anxiety; D72.829 Elevated white blood cell count, unspecified; Z93.1 Gastrostomy status; Z89.612 Acquired absence of left leg above knee; Z79.02 Long term (current) use of antithrombotics/antiplatelets; Z95.828 Presence of other vascular implants and grafts; Z66 Do not resuscitate; Z88.1 Allergy status to other antibiotic agents; Z79.899 Other long term (current) drug therapy; Z79.82 Long term (current) use of aspirin; Z87.440 Personal history of urinary (tract) infections; Z86.73 Personal history of transient ischemic attack (TIA), and cerebral infarction without residual deficits; Z86.14 Personal history of Methicillin resistant Staphylococcus aureus infection; R06.02 Shortness of breath; Z95.0 Presence of cardiac pacemaker; Z68.27 Body mass index [BMI] 27.0-27.9, adult
CPT/HCPCS: 36415; 71045; 80053; 81001; 82553; 83605; 83735; 83880; 84484; 85007; 85027; 85610; 85730; 86140; 87040 ×2; 87899; 93005; 96361; 96365; 96375; 99285; J0696; J1940; J7030; J7042; 80048; 85025; 87486; 87581; 87632; 87641; 87798; 87804; 92610-GN; A9270-GY; J1650; J3475; J7040

== ENCOUNTER 2018-10-20 13:47 | Emergency (ER) | payer MEDICARE, OTHER, MEDICAID ==
[2018-10-20 14:31] VITALS: BP 129/96
[2018-10-20] MEDS ORDERED: Albuterol/Ipratropium 3.0-0.5 MG/3 ML Neb Soln NEB ONE (14:47)
--- NOTE | 2018-10-20 15:27 | EDM.PDOC ---
ED HPI GENERAL MEDICAL PROBLEM - General Chief Complaint: Cardiovascular Problem Stated Complaint: COUGH Time Seen by Provider: 10/20/18 14:19 Source of Information: Reports: Patient, Family, Fpc Records History Limitations: Reports: No Limitations - History of Present Illness INITIAL COMMENTS - FREE TEXT/NARRATIVE: The patient presents with a productive cough. She has no fever, chills, chest pain or shortness of breath. For the past few days she has been needing oxygen. She has no history of lung problems such as asthma or emphysema. She did start taking food orally about 4 months ago. She was on tube feedings for about 3 1/2 years following open heart surgery. Onset: Gradual Duration: Day(s): Severity: Moderate Improves with: Reports: None Worsens with: Reports: None Associated Symptoms: Reports: Cough. Denies: Chest Pain, Fever/Chills, Headaches, Nausea/Vomiting, Shortness of Breath - Related Data Allergies Allergy/AdvReac Type Severity Reaction Status Date / Time amoxicillin [From Augmentin] Allergy Other Verified 09/01/18 09:04 clavulanic acid Allergy Other Verified 09/01/18 09:04 [From Augmentin] Home Meds: Home Meds Acetaminophen 650 mg GTUBE TID PRN 02/25/17 [History] Amino Ac/Protein Hydr/Whey Pro [Prosource Tf Liquid Packet] 1 oz GTUBE BID 02/25 [History] Amiodarone [Cordarone] 200 mg GTUBE DAILY 02/25/17 [History] Aspirin 81 mg GTUBE DAILY 02/25/17 [History] Clopidogrel [Plavix] 75 mg GTUBE DAILY 02/25/17 [History] Docusate Sodium [Diocto] 15 ml GTUBE BID 02/25/17 [History] Metoprolol Tartrate 100 mg GTUBE BID 02/25/17 [History] atorvaSTATin [Lipitor] 5 mg GTUBE DAILY 02/25/17 [History] cloNIDine [Catapres] 0.2 mg GTUBE BID 02/25/17 [History] Furosemide [Lasix Oral Soln] 20 mg PO DAILY 09/01/18 [History] Ketoconazole [Nizoral 2% Crm] 1 applic TOP DAILY PRN 09/01/18 [History] Lactose-Reduced Food/Fiber [Isosource 1.5 Marcello Liquid] 125 ml PEGTUBE DAILY 09/01 [History] Multivitamin [Daily Multiple Vitamin] 1 tab PEGTUBE BEDTIME 09/01/18 [History] Water [Purified Water] 200 ml PEGTUBE QID 09/01/18 [History] Albuterol Sulfate 2.5 mg IH Q6HR PRN #1 box 10/20/18 [Rx] Doxycycline [Vibramycin] 100 mg PO BID #20 cap 10/20/18 [Rx] Past Medical History Cardiovascular History: Reports: Afib, Heart Failure, High Cholesterol, Hypertension, Pacemaker, Other (See Below) Other Cardiovascular History: sick sinus syndrome Gastrointestinal History: Reports: Chronic Constipation, GERD Other Gastrointestinal History: pt received feeding via peg tube. Genitourinary History: Reports: UTI, Recurrent, Other (See Below) Other Genitourinary History: dysuria [employer]ER History: Reports: Musculoskeletal History: Reports: Back Pain, Chronic Neurological History: Reports: CVA Psychiatric History: Reports: Depression Endocrine/Metabolic History: Reports: Obesity/BMI 30+ Dermatologic History: Reports: Psoriasis, Other (See Below) Other Dermatologic History: pt has multiple psoriasis areas all over her body. Red skin folds in the groin, covered with juan carlos upon arrival to the floor. 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 - Past Surgical History HEENT Surgical History: Reports: None Musculoskeletal Surgical History: Reports: Amputation Other Musculoskeletal Surgeries/Procedures:: left above knee amputation Social & Family History - Family History Family Medical History: Noncontributory - Tobacco Use Smoking Status *Q: Former Smoker Used Tobacco, but Quit: Yes Month/Year Tobacco Last Used: 5 yrs ago - Caffeine Use Caffeine Use: Reports: None - Recreational Drug Use Recreational Drug Use: No - Living Situation & Occupation Living situation: Reports: Extended Care Facility ([facility]) Occupation: Disabled ED ROS GENERAL - Review of Systems Review Of Systems: See Below Constitutional: Reports: No Symptoms HEENT: Reports: No Symptoms Respiratory: Reports: Cough. Denies: Shortness of Breath Cardiovascular: Reports: No Symptoms Endocrine: Reports: No Symptoms GI/Abdominal: Reports: No Symptoms : Reports: No Symptoms Musculoskeletal: Reports: No Symptoms ED EXAM, GENERAL - Physical Exam Exam: See Below Exam Limited By: No Limitations General Appearance: Alert, No Apparent Distress Ears: Normal External Exam Nose: Normal Inspection Head: Atraumatic, Normocephalic Neck: Normal Inspection Respiratory/Chest: Decreased Breath Sounds, Rhonchi Cardiovascular: Regular Rate, Rhythm, No Edema, No Murmur GI/Abdominal: Soft, Non-Tender, No Organomegaly, No Mass Back Exam: Normal Inspection Course - Vital Signs Last Recorded V/S: Last Vital Signs Temp 98.0 F 10/20/18 14:27 Pulse 70 10/20/18 14:27 Resp 20 10/20/18 14:27 BP 129/96 H 10/20/18 14:27 Pulse Ox 98 10/20/18 15:10 - Orders/Labs/Meds Orders: Active Orders 24 hr Category Date Time Status Acapella [RT Chest Physiotherapy] [RC] ASDIRECTED Care 10/20/18 14:58 Active RT Aerosol Therapy [RC] ASDIRECTED Care 10/20/18 14:47 Active CXR [Chest 1V Frontal] [CR] Stat Exams 10/20/18 14:46 Taken Meds: Medications Discontinued Medications Generic Name Dose Route Start Last Admin Trade Name Freq PRN Reason Stop Dose Admin Albuterol/Ipratropium 3 ml 10/20/18 14:47 10/20/18 15:05 Duoneb 3.0-0.5 Mg/3 Ml NEB 10/20/18 14:48 3 ml ONETIME ONE Administration - Re-Assessments/Exams Free Text/Narrative Re-Assessment/Exam: 10/20/18 15:38 The patient and family just want a CXR and no labs. Everyone has a hard time getting labs on her. I will ordered the CXR but I will also order a duoneb. 10/20/18 16:18 Her CXR shows an infiltrated in the right middle lobe. I will get her on an antibiotic and duonebs and I gave her a flutter valve to help with the congestion. Departure - Departure Time of Disposition: 16:20 Disposition: Home, Self-Care 01 Condition: Good Clinical Impression: Pneumonia Qualifiers: Pneumonia type: due to unspecified organism Laterality: right Lung location: middle lobe of lung Qualified Code(s): J18.1 - Lobar pneumonia, unspecified organism Prescriptions: Albuterol Sulfate 2.5 mg IH Q6HR PRN #1 box PRN Reason: Shortness Of Breath Doxycycline [Vibramycin] 100 mg PO BID #20 cap Referrals: Bret Torres MD [Primary Care Provider] - 1 Week Forms: ED Department Discharge Additional Instructions: Take the doxycycline 2 times per day for 10 days. Use oxygen by nasal canula at 2L to keep oxygen saturations above 92%. Keep with the feedings as ordered by her doctor. Use the albuterol every 6 hours as needed for shortness of breath. Use the acapela valve 10 reps every other hour while awake for 5 days. Please return if you are worse. - My Orders Last 24 Hours: My Active Orders 10/20/18 14:46 CXR [Chest 1V Frontal] [CR] Stat 10/20/18 14:47 RT Aerosol Therapy [RC] ASDIRECTED 10/20/18 14:58 Acapella [RT Chest Physiotherapy] [RC] ASDIRECTED - Assessment/Plan Last 24 Hours: My Active Orders 10/20/18 14:46 CXR [Chest 1V Frontal] [CR] Stat 10/20/18 14:47 RT Aerosol Therapy [RC] ASDIRECTED 10/20/18 14:58 Acapella [RT Chest Physiotherapy] [RC] ASDIRECTED
--- NOTE | 2018-10-23 07:28 | CR ---
Chest: Portable view of the chest was obtained. Comparison: Prior chest x-ray of 09/01/18. Increasing density within the right upper lung. Heart is enlarged. Pulmonary vessels are diffusely congested. Previous sternotomy for CABG. Pacemaker is noted. Bony structures are grossly intact. Impression: 1. Findings suspicious for right upper lobe pneumonia versus change from aspiration. 2. Mild pulmonary vascular congestion believed to be present. 3. Other incidental findings. Diagnostic code #3 I agree with preliminary report from [facility], finalized on 10/20/18, 5:05 PM Central Time
== END 2018-10-20 16:38 | disposition home or self-care (01) ==
LOC: JD.ED 13:47
DX: J18.1 Lobar pneumonia, unspecified organism (principal); I11.0 Hypertensive heart disease with heart failure; I50.9 Heart failure, unspecified; I48.91 Unspecified atrial fibrillation; E78.00 Pure hypercholesterolemia, unspecified; F32.9 Major depressive disorder, single episode, unspecified; Z86.73 Personal history of transient ischemic attack (TIA), and cerebral infarction without residual deficits; Z79.82 Long term (current) use of aspirin; Z79.899 Other long term (current) drug therapy; Z88.1 Allergy status to other antibiotic agents
CPT/HCPCS: 71045; 71045-26; 94640; 94667; 99283; 99283-25; J7620-GY

== ENCOUNTER 2018-10-22 06:26 | Emergency (ER) | payer MEDICARE, OTHER, MEDICAID ==
[2018-10-22] MEDS ORDERED: Albuterol/Ipratropium 3.0-0.5 MG/3 ML Neb Soln NEB ONE (06:34)
[2018-10-22 06:38] VITALS: BP 112/56
--- NOTE | 2018-10-22 06:41 | EDM.PDOC ---
<Stefano Hatch - Last Filed: 10/22/18 10:23> ED HPI GENERAL MEDICAL PROBLEM - General Chief Complaint: Respiratory Problem Stated Complaint: [facility] Time Seen by Provider: 10/22/18 06:30 - Related Data Allergies Allergy/AdvReac Type Severity Reaction Status Date / Time amoxicillin [From Augmentin] Allergy Other Verified 10/22/18 06:38 clavulanic acid Allergy Other Verified 10/22/18 06:38 [From Augmentin] Home Meds: Home Meds Acetaminophen 650 mg GTUBE TID PRN 02/25/17 [History] Amino Ac/Protein Hydr/Whey Pro [Prosource Tf Liquid Packet] 1 oz GTUBE BID 02/25 [History] Amiodarone [Cordarone] 200 mg GTUBE DAILY 02/25/17 [History] Aspirin 81 mg GTUBE DAILY 02/25/17 [History] Clopidogrel [Plavix] 75 mg GTUBE DAILY 02/25/17 [History] Docusate Sodium [Diocto] 15 ml GTUBE BID 02/25/17 [History] Metoprolol Tartrate 100 mg GTUBE BID 02/25/17 [History] atorvaSTATin [Lipitor] 5 mg GTUBE DAILY 02/25/17 [History] cloNIDine [Catapres] 0.2 mg GTUBE BID 02/25/17 [History] Furosemide [Lasix Oral Soln] 20 mg PO DAILY 09/01/18 [History] Ketoconazole [Nizoral 2% Crm] 1 applic TOP DAILY PRN 09/01/18 [History] Lactose-Reduced Food/Fiber [Isosource 1.5 Marcello Liquid] 125 ml PEGTUBE DAILY 09/01 [History] Multivitamin [Daily Multiple Vitamin] 1 tab PEGTUBE BEDTIME 09/01/18 [History] Water [Purified Water] 200 ml PEGTUBE QID 09/01/18 [History] Acetaminophen [Tylenol] 650 mg GTUBE ASDIRECTED PRN 10/20/18 [History] Albuterol Sulfate 2.5 mg IH Q6HR PRN #1 box 10/20/18 [Rx] Gabapentin [Neurontin] 100 mg GTUBE TID 10/20/18 [History] Hydrocortisone [Hydrocortisone 1% Crm] 1 applic TOP BID PRN 10/20/18 [History] Lactose-Reduced Food/Fiber [Isosource 1.5 Marcello Liquid] 250 ml GTUBE BID 10/20/18 [History] Tacrolimus 1 applic TOP ASDIRECTED 10/20/18 [History] Triamcinolone Acetonide [Triamcinolone Acetonide 0.1% Oint] 1 applic TOP ASDIRECTED PRN 10/20/18 [History] Amoxicillin/Clavulanate K [Augmentin 400-57 MG/5 ML] 10 ml PO Q12H #200 ml 10/22 [Rx] Course - Vital Signs Last Recorded V/S: Last Vital Signs Temp 35.9 C 10/22/18 06:31 Pulse 91 10/22/18 06:31 Resp 20 10/22/18 06:31 BP 112/56 L 10/22/18 06:31 Pulse Ox 99 10/22/18 06:31 - Orders/Labs/Meds Orders: Active Orders 24 hr Category Date Time Status Bladder Scan [RC] ASDIRECTED Care 10/22/18 06:36 Active EKG Documentation Completion [RC] STAT Care 10/22/18 06:35 Active Insert Weston Catheter [Insert Urinary Catheter] [OM.PC] Care 10/22/18 08:25 Ordered Stat Oxygen Therapy [RC] ASDIRECTED Care 10/22/18 06:36 Active RT Aerosol Therapy [RC] ASDIRECTED Care 10/22/18 06:35 Active Urinary Catheter Assessment [RC] ASDIRECTED Care 10/22/18 08:45 Active Chest 1V Frontal [CR] Stat Exams 10/22/18 06:35 Taken CULTURE BLOOD [BC] Stat Lab 10/22/18 09:25 Received Blood Culture x2 Reflex Set [OM.PC] Stat Oth 10/22/18 08:19 Ordered Labs: Laboratory Tests 10/22/18 10/22/18 10/22/18 Range/Units 06:55 06:55 06:55 WBC 12.53 H (3.98-10.04) K/mm3 RBC 4.12 (3.98-5.22) M/mm3 Hgb 13.4 D (11.2-15.7) gm/L Hct 44.4 (34.1-44.9) % MCV 107.8 H (79.4-94.8) fl MCH 32.5 H (25.6-32.2) pg MCHC 30.2 L (32.2-35.5) g/dl RDW Std Deviation 59.4 H (36.4-46.3) fL Plt Count 235 (182-369) K/mm3 MPV 11.0 (9.4-12.3) fl Neutrophils % (Manual) 87 H (40-60) % Band Neutrophils % 0 (0-10) % Lymphocytes % (Manual) 8 L (20-40) % Atypical Lymphs % 0 % Monocytes % (Manual) 3 (2-10) % Eosinophils % (Manual) 1 (0.7-5.8) % Basophils % (Manual) 1 (0.1-1.2) Toxic Granulation See note Platelet Estimate Adequate Plt Morphology Comment See note Polychromasia 1+ slight Basophilic Stippling Moderate Anisocytosis 1+ slight Macrocytosis Many RBC Morph Comment Not Reportable ESR (0-20) mm/hr PT 11.0 (9.5-12.1) SECONDS INR 1.01 APTT 29 (24-31) SECONDS Sodium 139 (136-145) mEq/L Potassium 4.7 (3.5-5.1) mEq/L Chloride 104 (98-107) mEq/L Carbon Dioxide 28 (21-32) mEq/L Anion Gap 11.7 (5-15) BUN 32 H (7-18) mg/dL Creatinine 0.8 (0.55-1.02) mg/dL Est Cr Clr Drug Dosing 41.76 mL/min Estimated GFR (MDRD) > 60 (>60) mL/min BUN/Creatinine Ratio 40.0 H (14-18) Glucose 162 H (83-115) mg/dL Calcium 9.7 (8.5-10.1) mg/dL Magnesium 1.9 (1.8-2.4) mg/dl Total Bilirubin 0.3 (0.2-1.0) mg/dL AST 30 (15-37) U/L ALT 32 (14-59) U/L Alkaline Phosphatase 109 (46-116) U/L Troponin I < 0.017 (0.00-0.056) ng/mL C-Reactive Protein 20.2 H* (<1.0) mg/dL NT-Pro-B Natriuret Pep (0-450) pg/mL Total Protein 7.3 (6.4-8.2) g/dl Albumin 2.2 L (3.4-5.0) g/dl Globulin 5.1 gm/dL Albumin/Globulin Ratio 0.4 L (1-2) Urine Color (Yellow) Urine Appearance (Clear) Urine pH (5.0-8.0) Ur Specific [place] (1.005-1.030) Urine Protein (Negative) Urine Glucose (UA) (Negative) Urine Ketones (Negative) Urine Occult Blood (Negative) Urine Nitrite (Negative) Urine Bilirubin (Negative) Urine Urobilinogen (0.2-1.0) Ur Leukocyte Esterase (Negative) Urine RBC (0-5) /hpf Urine WBC (0-5) /hpf Ur Epithelial Cells (0-5) /hpf Amorphous Sediment (NOT SEEN) /hpf Urine Bacteria (FEW) /hpf Urine Mucus (FEW) /hpf 10/22/18 10/22/18 10/22/18 Range/Units 06:55 06:55 08:30 WBC (3.98-10.04) K/mm3 RBC (3.98-5.22) M/mm3 Hgb (11.2-15.7) gm/L Hct (34.1-44.9) % MCV (79.4-94.8) fl MCH (25.6-32.2) pg MCHC (32.2-35.5) g/dl RDW Std Deviation (36.4-46.3) fL Plt Count (182-369) K/mm3 MPV (9.4-12.3) fl Neutrophils % (Manual) (40-60) % Band Neutrophils % (0-10) % Lymphocytes % (Manual) (20-40) % Atypical Lymphs % % Monocytes % (Manual) (2-10) % Eosinophils % (Manual) (0.7-5.8) % Basophils % (Manual) (0.1-1.2) Toxic Granulation Platelet Estimate Plt Morphology Comment Polychromasia Basophilic Stippling Anisocytosis Macrocytosis RBC Morph Comment ESR 96 H (0-20) mm/hr PT (9.5-12.1) SECONDS INR APTT (24-31) SECONDS Sodium (136-145) mEq/L Potassium (3.5-5.1) mEq/L Chloride (98-107) mEq/L Carbon Dioxide (21-32) mEq/L Anion Gap (5-15) BUN (7-18) mg/dL Creatinine (0.55-1.02) mg/dL Est Cr Clr Drug Dosing mL/min Estimated GFR (MDRD) (>60) mL/min BUN/Creatinine Ratio (14-18) Glucose (83-115) mg/dL Calcium (8.5-10.1) mg/dL Magnesium (1.8-2.4) mg/dl Total Bilirubin (0.2-1.0) mg/dL AST (15-37) U/L ALT (14-59) U/L Alkaline Phosphatase (46-116) U/L Troponin I (0.00-0.056) ng/mL C-Reactive Protein (<1.0) mg/dL NT-Pro-B Natriuret Pep 8733 H (0-450) pg/mL Total Protein (6.4-8.2) g/dl Albumin (3.4-5.0) g/dl Globulin gm/dL Albumin/Globulin Ratio (1-2) Urine Color Light yellow (Yellow) Urine Appearance Slt cloudy H (Clear) Urine pH 5.5 (5.0-8.0) Ur Specific [place] 1.010 (1.005-1.030) Urine Protein Negative (Negative) Urine Glucose (UA) Negative (Negative) Urine Ketones Negative (Negative) Urine Occult Blood Negative (Negative) Urine Nitrite Negative (Negative) Urine Bilirubin Negative (Negative) Urine Urobilinogen 0.2 (0.2-1.0) Ur Leukocyte Esterase Negative (Negative) Urine RBC Not seen (0-5) /hpf Urine WBC Not seen (0-5) /hpf Ur Epithelial Cells 0-5 (0-5) /hpf Amorphous Sediment Few H (NOT SEEN) /hpf Urine Bacteria Few (FEW) /hpf Urine Mucus Not seen (FEW) /hpf Meds: Medications Discontinued Medications Generic Name Dose Route Start Last Admin Trade Name Freq PRN Reason Stop Dose Admin Albuterol/Ipratropium 3 ml 10/22/18 06:34 10/22/18 06:48 Duoneb 3.0-0.5 Mg/3 Ml NEB 10/22/18 06:35 3 ml ONETIME ONE Administration Amoxicillin/Clavulanate Potassium 1 tab 10/22/18 08:19 10/22/18 09:38 Augmentin 875 Mg/125 Mg PO 10/22/18 08:20 1 tab ONETIME ONE Administration Furosemide 60 mg 10/22/18 06:58 10/22/18 07:27 Lasix GTUBE 10/22/18 06:59 60 mg ONETIME ONE Administration - Re-Assessments/Exams Free Text/Narrative Re-Assessment/Exam: 10/22/18 07:[address] Fang for change of shift. The bladder scan showed no retained urine. 10/22/18 08:14 The patient's CBC is remarkable for WBC count elevated at 12.53, but with 0% bandemia. The remainder of the CBC is unremarkable. The patient's CMP is remarkable for a BUN elevated at 32, with normal creatinine. Her blood glucose is elevated at 162. The remainder of her CMP is unremarkable. The patient's magnesium level is normal. The patient's troponin is undetectably low. The patient's CRP is significantly elevated at 20.2. It was 6.7 on 09/02/2018. The patient's BNP is elevated at 8733. No prior BNP for comparison. The patient's coags are normal. The patient's ESR is still pending. A urine sample has not yet been collected for the urinalysis. The patient allowed lab to draw her blood, but has not allowed an IV to be placed. I talked to the patient about this issue. I explained that she appears to have aspirated, and we may need to have an IV in order to effectively treat her condition. The patient stated that she did not want an IV. I asked her repeatedly, and the patient has remained steadfast - she does not want an IV to be placed. The patient is aware that this may adversely affect our ability to treat her condition. It is too early to determine if this is aspiration pneumonitis versus aspiration pneumonia, although I do not see an antacid medicine on the patient' s medication list, which improves the patient's chances that this will tube turner to be aspiration pneumonitis. Nevertheless, given the patient's age and comorbidities, I believe it would be prudent to treat her for aspiration pneumonia. Because the patient will not allow an IV, I will start her on oral Augmentin. I have also ordered blood cultures. 10/22/18 08:38 Notified by Jackie CHOW that the patient has refused blood cultures to be drawn. 10/22/18 09:33 Notified by Jackie CHOW that the patient agreed to have one set of blood cultures drawn, which has been done, but that she refused a second set to be drawn. She is still refusing an IV. 10/22/18 09:59 The patient's ESR is elevated at 96. The patient's urinalysis is unremarkable. Test results discussed with the patient and her 2 sons, at the bedside. As above , it appears most likely that the patient has aspirated. It is too early to determine if she is suffering from aspiration pneumonitis or aspiration pneumonia, but because of her age and comorbidities, we are treating for aspiration pneumonia with oral Augmentin. I explained that if the patient is refusing an IV, then I will not be able to justify admitting her to the hospital , because there is nothing that we would be doing in the hospital but could not be done in the care home. The patient's sons understand that. They asked her themselves if she would consider getting an IV, and she again refused. I will therefore discharge the patient home with a 10-day prescription for Augmentin, and have her follow-up with her PCP as needed. Departure - Departure Time of Disposition: 10:01 Disposition: Home, Self-Care 01 Condition: Fair Clinical Impression: Aspiration pneumonia Qualifiers: Aspiration pneumonia type: unspecified Laterality: right Lung location: lower lobe of lung Qualified Code(s): J69.0 - Pneumonitis due to inhalation of food and vomit - Discharge Information *PRESCRIPTION DRUG MONITORING PROGRAM REVIEWED*: Not Applicable *COPY OF PRESCRIPTION DRUG MONITORING REPORT IN PATIENT SHANNON: Not Applicable Prescriptions: Amoxicillin/Clavulanate K [Augmentin 400-57 MG/5 ML] 10 ml PO Q12H #200 ml Instructions: Aspiration Precautions, Adult, Aspiration Pneumonia Referrals: Eliecer Oliveira MD [Ordering Only Provider] - Bret Torres MD [Primary Care Provider] - Forms: ED Department Discharge Additional Instructions: Ms. Raza was seen in the emergency room for worsening cough, shortness of breath, and decreased oxygen saturation. Workup in the ER included blood work, a single set of blood cultures, a bladder scan, a urinalysis, a chest x-ray, and an ECG. Her workup indicates that she has aspirated. It is too early to tell if she has aspiration pneumonitis or aspiration pneumonia, however, given her age and comorbidities, she is being treated for aspiration pneumonia. An IV was recommended for Ms. Raza, which she refused. Because she refused an IV, an admission to the hospital could not be justified. Ms. Raza has been started on the antibiotic Augmentin through her G-tube. A prescription for Augmentin has been provided. Give 10 mL of Augmentin through the PEG tube every 12 hours, starting this evening, 10/22/2018, as prescribed. We strongly recommend that she not eat or drink anything by mouth, and that all of her nutrition be given through the G-tube, indefinitely. Have her follow-up with her PCP, Dr. Torres, at the next available appointment. If any other problems, please do not hesitate to return Ms. Raza to the ER. - My Orders Last 24 Hours: My Active Orders 10/22/18 06:35 EKG Documentation Completion [RC] STAT RT Aerosol Therapy [RC] ASDIRECTED Chest 1V Frontal [CR] Stat 10/22/18 06:36 Bladder Scan [RC] ASDIRECTED Oxygen Therapy [RC] ASDIRECTED - Assessment/Plan Last 24 Hours: My Active Orders 10/22/18 06:35 EKG Documentation Completion [RC] STAT RT Aerosol Therapy [RC] ASDIRECTED Chest 1V Frontal [CR] Stat 10/22/18 06:36 Bladder Scan [RC] ASDIRECTED Oxygen Therapy [RC] ASDIRECTED <Boaz Fang - Last Filed: 10/22/18 19:06> ED HPI GENERAL MEDICAL PROBLEM - General Source of Information: Reports: Patient History Limitations: Reports: No Limitations - History of Present Illness INITIAL COMMENTS - FREE TEXT/NARRATIVE: 88-year-old female presents to the ED per [facility] from [facility] where she resides. He was seen through the ED 2 days ago with an increasing productive cough with no associated fever chills or chest pain. She has developed much more shortness of breath and required oxygen support. On x-ray done 2 days ago was suggested there was a right middle lobe infiltrate suggesting pneumonia and she was started on Doxil cycle 100 mg twice daily and a flutter valve spirometer. In the ED that time she received a DuoNeb treatment as well. She has a DO NOT RESUSCITATE/DO NOT INTUBATE patient and she refused labs on last occasion. Apparently she is very difficult to obtain blood from. She answers all my questions appropriately. Her tongue is mildly dry. He states the cough is productive of a greenish thick sputum. She still has an appetite and is eating fairly well. Eyes any diarrhea from medication. She is satting at 95% on 3 L/m. Monitor shows paced rhythm at 75/m with a BP of 112/ 56. She does have audible wheezing on exam. Onset: Gradual Onset Date: 10/18/18 Duration: Day(s):, Getting Worse Location: Reports: Chest (Becoming more short of breath.) Quality: Reports: Other (Dyspnea and requiring oxygen support.) Severity: Moderate Improves with: Reports: None Worsens with: Reports: None Context: Denies: Activity, Exercise, Lifting, Sick Contact, Trauma, Other Associated Symptoms: Reports: Cough, cough w sputum, Malaise, Shortness of Breath, Weakness. 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 For the last 3-1/2 years. 4 months ago she started eating again. 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 As far as I can ascertain most her medicines are still given through the PEG tube. 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 Red skin folds in the groin, covered with juan carlos upon arrival to the floor. 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 - Past Surgical History HEENT Surgical History: Reports: None Musculoskeletal Surgical History: Reports: Amputation Other Musculoskeletal Surgeries/Procedures:: left above knee amputation Social & Family History - Family History Family Medical History: Noncontributory - Caffeine Use Caffeine Use: Reports: None - Living Situation & Occupation Living situation: Reports: Extended Care Facility ([facility]) Occupation: Disabled ED ROS GENERAL - Review of Systems Review Of Systems: See Below Constitutional: Reports: Malaise. Denies: Fever, Chills, Decreased Appetite HEENT: Reports: Other (Has chronic poor vision.) Respiratory: Reports: Shortness of Breath, Wheezing, Cough, Sputum. Denies: Pleuritic Chest Pain Cardiovascular: Reports: Blood Pressure Problem. Denies: Chest Pain, Claudication (Chronic hypertension on multiple medications.), Edema, Lightheadedness, Orthopnea GI/Abdominal: Reports: Difficulty Swallowing. Denies: Abdominal Pain, Anorexia , Black Stool, Bloody Stool, Constipation, Diarrhea, Decreased Appetite (Has apparently has been eating soft diet for the last 4 months. She's been fed primarily through a PEG tube left upper quadrant of the abdomen for the last 3-1 /2 years.), Distension, Flatus, Hematemesis, Hematochezia, Melena, Stool Incontinence, Other : Reports: Frequency, Incontinence Musculoskeletal: Reports: Joint Pain (She clinically has marked swelling of her MCP joints of both hands suggesting likely underlying rheumatoid arthritis.), Other (Cannot walk. She has an above-knee amputation on the left side. She is confined to bed or wheelchair.) Skin: Reports: Bruising (Lose is extremely easily particular a both upper extremities.) Neurological: Reports: No Symptoms Psychiatric: Reports: Other (Has parkinsonian-like symptoms ,particularily masked facies. ) ED EXAM, GENERAL - Physical Exam Exam: See Below Exam Limited By: Respiratory Distress (She is to Get rest 26-28/m.) General Appearance: Alert, Moderate Distress (Moderate respiratory distress.), Other Eye Exam: Right Eye: Other (Has some increased mucus in both eyes) Throat/Mouth: Other Head: Atraumatic (Tongue is mildly dry and coated and does have some green mucus that she has coughed up on it.), Normocephalic Neck: Normal Inspection, Limited Range of Motion, Other (No JVD.). No: Carotid Bruit, Lymphadenopathy (L), Lymphadenopathy (R) Respiratory/Chest: No Accessory Muscle Use, Respiratory Distress (tachypneic at rest 26/m.), Rales (Few fine rales appreciated posteriorly lung navarro.), Wheezing (Severe wheezing both on inspiration and expiration throughout both lung navarro.). No: Lungs Clear, Normal Breath Sounds, Chest Non-Tender Cardiovascular: Regular Rate, Rhythm, No Edema, No Gallop, No Rub, Other ( Monitor shows atrioventricular paced rhythm at 70/m. Pacemaker left upper anterior chest. Well-healed midline sternotomy incision.). No: Normal Peripheral Pulses Peripheral Pulses: 0: Posterior Tibial (R), Dorsalis Pedis (R) GI/Abdominal: Normal Bowel Sounds, Soft, Non-Tender, Other (The abdomen is distended and firm to palpation. She is dull to percussion from the pubic symphysis to the umbilicus suggesting possible urinary retention. A bladder scan is to be done. PEG tube is left upper quadrant of the abdomen.) Extremities: Other Neurological: Alert, Oriented, CN II-XII Intact, Normal Cognition, Other (Has masklike face East and some cogwheel rigidity on movement of her right upper extremity.) Psychiatric: Flat Affect Skin Exam: Warm, Dry, Intact, Normal Color, No Rash EKG INTERPRETATION EKG Date: 10/22/18 Time: 07:00 Rhythm: Other (100% paced rhythm atrioventricular at 70/m.) Rate (Beats/Min): 70 EKG Interpretation Comments: 100% paced rhythm. No further analysis attempted Course - Vital Signs Last Recorded V/S: Last Vital Signs Temp 35.9 C 10/22/18 06:31 Pulse 91 10/22/18 06:31 Resp 20 10/22/18 06:31 BP 112/56 L 10/22/18 06:31 Pulse Ox 99 10/22/18 06:31 - Orders/Labs/Meds Orders: Active Orders 24 hr Category Date Time Status Bladder Scan [RC] ASDIRECTED Care 10/22/18 06:36 Active EKG Documentation Completion [RC] STAT Care 10/22/18 06:35 Active Insert Weston Catheter [Insert Urinary Catheter] [OM.PC] Care 10/22/18 08:25 Ordered Stat Oxygen Therapy [RC] ASDIRECTED Care 10/22/18 06:36 Active RT Aerosol Therapy [RC] ASDIRECTED Care 10/22/18 06:35 Active Urinary Catheter Assessment [RC] ASDIRECTED Care 10/22/18 08:45 Active Chest 1V Frontal [CR] Stat Exams 10/22/18 06:35 Taken CULTURE BLOOD [BC] Stat Lab 10/22/18 09:25 Received Blood Culture x2 Reflex Set [OM.PC] Stat Oth 10/22/18 08:19 Ordered Labs: Laboratory Tests 10/22/18 10/22/18 10/22/18 Range/Units 06:55 06:55 06:55 WBC 12.53 H (3.98-10.04) K/mm3 RBC 4.12 (3.98-5.22) M/mm3 Hgb 13.4 D (11.2-15.7) gm/L Hct 44.4 (34.1-44.9) % MCV 107.8 H (79.4-94.8) fl MCH 32.5 H (25.6-32.2) pg MCHC 30.2 L (32.2-35.5) g/dl RDW Std Deviation 59.4 H (36.4-46.3) fL Plt Count 235 (182-369) K/mm3 MPV 11.0 (9.4-12.3) fl Neutrophils % (Manual) 87 H (40-60) % Band Neutrophils % 0 (0-10) % Lymphocytes % (Manual) 8 L (20-40) % Atypical Lymphs % 0 % Monocytes % (Manual) 3 (2-10) % Eosinophils % (Manual) 1 (0.7-5.8) % Basophils % (Manual) 1 (0.1-1.2) Toxic Granulation See note Platelet Estimate Adequate Plt Morphology Comment See note Polychromasia 1+ slight Basophilic Stippling Moderate Anisocytosis 1+ slight Macrocytosis Many RBC Morph Comment Not Reportable ESR (0-20) mm/hr PT 11.0 (9.5-12.1) SECONDS INR 1.01 APTT 29 (24-31) SECONDS Sodium 139 (136-145) mEq/L Potassium 4.7 (3.5-5.1) mEq/L Chloride 104 (98-107) mEq/L Carbon Dioxide 28 (21-32) mEq/L Anion Gap 11.7 (5-15) BUN 32 H (7-18) mg/dL Creatinine 0.8 (0.55-1.02) mg/dL Est Cr Clr Drug Dosing 41.76 mL/min Estimated GFR (MDRD) > 60 (>60) mL/min BUN/Creatinine Ratio 40.0 H (14-18) Glucose 162 H (83-115) mg/dL Calcium 9.7 (8.5-10.1) mg/dL Magnesium 1.9 (1.8-2.4) mg/dl Total Bilirubin 0.3 (0.2-1.0) mg/dL AST 30 (15-37) U/L ALT 32 (14-59) U/L Alkaline Phosphatase 109 (46-116) U/L Troponin I < 0.017 (0.00-0.056) ng/mL C-Reactive Protein 20.2 H* (<1.0) mg/dL NT-Pro-B Natriuret Pep (0-450) pg/mL Total Protein 7.3 (6.4-8.2) g/dl Albumin 2.2 L (3.4-5.0) g/dl Globulin 5.1 gm/dL Albumin/Globulin Ratio 0.4 L (1-2) Urine Color (Yellow) Urine Appearance (Clear) Urine pH (5.0-8.0) Ur Specific [place] (1.005-1.030) Urine Protein (Negative) Urine Glucose (UA) (Negative) Urine Ketones (Negative) Urine Occult Blood (Negative) Urine Nitrite (Negative) Urine Bilirubin (Negative) Urine Urobilinogen (0.2-1.0) Ur Leukocyte Esterase (Negative) Urine RBC (0-5) /hpf Urine WBC (0-5) /hpf Ur Epithelial Cells (0-5) /hpf Amorphous Sediment (NOT SEEN) /hpf Urine Bacteria (FEW) /hpf Urine Mucus (FEW) /hpf 10/22/18 10/22/18 10/22/18 Range/Units 06:55 06:55 08:30 WBC (3.98-10.04) K/mm3 RBC (3.98-5.22) M/mm3 Hgb (11.2-15.7) gm/L Hct (34.1-44.9) % MCV (79.4-94.8) fl MCH (25.6-32.2) pg MCHC (32.2-35.5) g/dl RDW Std Deviation (36.4-46.3) fL Plt Count (182-369) K/mm3 MPV (9.4-12.3) fl Neutrophils % (Manual) (40-60) % Band Neutrophils % (0-10) % Lymphocytes % (Manual) (20-40) % Atypical Lymphs % % Monocytes % (Manual) (2-10) % Eosinophils % (Manual) (0.7-5.8) % Basophils % (Manual) (0.1-1.2) Toxic Granulation Platelet Estimate Plt Morphology Comment Polychromasia Basophilic Stippling Anisocytosis Macrocytosis RBC Morph Comment ESR 96 H (0-20) mm/hr PT (9.5-12.1) SECONDS INR APTT (24-31) SECONDS Sodium (136-145) mEq/L Potassium (3.5-5.1) mEq/L Chloride (98-107) mEq/L Carbon Dioxide (21-32) mEq/L Anion Gap (5-15) BUN (7-18) mg/dL Creatinine (0.55-1.02) mg/dL Est Cr Clr Drug Dosing mL/min Estimated GFR (MDRD) (>60) mL/min BUN/Creatinine Ratio (14-18) Glucose (83-115) mg/dL Calcium (8.5-10.1) mg/dL Magnesium (1.8-2.4) mg/dl Total Bilirubin (0.2-1.0) mg/dL AST (15-37) U/L ALT (14-59) U/L Alkaline Phosphatase (46-116) U/L Troponin I (0.00-0.056) ng/mL C-Reactive Protein (<1.0) mg/dL NT-Pro-B Natriuret Pep 8733 H (0-450) pg/mL Total Protein (6.4-8.2) g/dl Albumin (3.4-5.0) g/dl Globulin gm/dL Albumin/Globulin Ratio (1-2) Urine Color Light yellow (Yellow) Urine Appearance Slt cloudy H (Clear) Urine pH 5.5 (5.0-8.0) Ur Specific [place] 1.010 (1.005-1.030) Urine Protein Negative (Negative) Urine Glucose (UA) Negative (Negative) Urine Ketones Negative (Negative) Urine Occult Blood Negative (Negative) Urine Nitrite Negative (Negative) Urine Bilirubin Negative (Negative) Urine Urobilinogen 0.2 (0.2-1.0) Ur Leukocyte Esterase Negative (Negative) Urine RBC Not seen (0-5) /hpf Urine WBC Not seen (0-5) /hpf Ur Epithelial Cells 0-5 (0-5) /hpf Amorphous Sediment Few H (NOT SEEN) /hpf Urine Bacteria Few (FEW) /hpf Urine Mucus Not seen (FEW) /hpf Meds: Medications Discontinued Medications Generic Name Dose Route Start Last Admin Trade Name Freq PRN Reason Stop Dose Admin Albuterol/Ipratropium 3 ml 10/22/18 06:34 10/22/18 06:48 Duoneb 3.0-0.5 Mg/3 Ml NEB 10/22/18 06:35 3 ml ONETIME ONE Administration Amoxicillin/Clavulanate Potassium 1 tab 10/22/18 08:19 10/22/18 09:38 Augmentin 875 Mg/125 Mg PO 10/22/18 08:20 1 tab ONETIME ONE Administration Furosemide 60 mg 10/22/18 06:58 10/22/18 07:27 Lasix GTUBE 10/22/18 06:59 60 mg ONETIME ONE Administration - Radiology Interpretation Free Text/Narrative:: 88-year-old female presents to the ED from [facility] where she resides. 2 days ago and was suspected to have an infiltrate in her right middle lobe suggestive of a early pneumonia. She was placed on doxycycline 100 mg twice daily. She has refused lab work at that time therefore not confirmatory lab work was available. She returns because of increased shortness of breath and requiring oxygen support which is not usual for her. At 3 L she is maintaining sats of 95-96%. She is to Take at rest 26-28/m. Exam reveals diffuse wheezing both on inspiration and expiration in all lung navarro fine crackles appreciated both bases. I suspect she has slipped into heart failure. She has known coronary disease having had bypass surgery 3-1/2 years ago. She is also afebrile. She states she is coughing up green thick sputum. Patient has started eating by mouth 4 months ago of the soft diet. 3-1/2 years she has been fed by PEG tube left upper quadrant of the abdomen. Apparently she developed severe dysphagia with aspiration after having open heart surgery 4 years ago. Therefore it is possible that she has developed an aspiration pneumonitis. Other she is afebrile at this time. Plan portable chest x-ray I did order an IV but apparently the patient has refused IV at this time. Labs ordered and apparently have been collected. - Re-Assessments/Exams Free Text/Narrative Re-Assessment/Exam: 10/22/18 07:03 chest x-ray done portably reveals a definitive change from x- ray done 2 days prior. There was a diffuse infiltrate right lung navarro along the azygous fissure suggesting fluid and an atypical infiltrate right middle lobe again suggestive of fluid. On today's chest x-ray there is evidence of a pleural effusion on the right side as well as an infiltrate right upper lobe with diffuse vascular congestion pattern. Therefore working diagnosis is aspiration pneumonia versus acute cardiac decompensation and congestive failure with cardiac asthma. Will give Lasix 60 mg via her PEG tube. case discussed with Dr Hatch at change of shift. He will assess labs and develop treatment plan based on those findings. - My Orders Last 24 Hours: My Active Orders 10/22/18 06:35 EKG Documentation Completion [RC] STAT RT Aerosol Therapy [RC] ASDIRECTED Chest 1V Frontal [CR] Stat 10/22/18 06:36 Bladder Scan [RC] ASDIRECTED Oxygen Therapy [RC] ASDIRECTED - Assessment/Plan Last 24 Hours: My Active Orders 10/22/18 06:35 EKG Documentation Completion [RC] STAT RT Aerosol Therapy [RC] ASDIRECTED Chest 1V Frontal [CR] Stat 10/22/18 06:36 Bladder Scan [RC] ASDIRECTED Oxygen Therapy [RC] ASDIRECTED
[2018-10-22] MEDS ORDERED: Furosemide 40 MG Tab GTUBE ONE (06:58)
[2018-10-22] MEDS ORDERED: Amoxicillin/Clavulanate K 875-125 MG Tab PO ONE (08:19)
--- NOTE | 2018-10-23 07:28 | CR ---
Chest: Portable view of the chest was obtained. Comparison: Prior chest x-ray of 10/20/18. Heart is enlarged. Upper mediastinum is within normal limits for portable technique. Focal density noted within the right upper lung slightly less dense than on prior study but overall size is mildly increased. Pulmonary vessels felt to congested. Previous sternotomy for CABG. Pacemaker is noted. Impression: 1. Right upper lung density as described above. 2. Other portions of the chest remain stable. Diagnostic code #3
== END 2018-10-22 10:35 | disposition home or self-care (01) ==
LOC: JD.ED 06:26
DX: J69.0 Pneumonitis due to inhalation of food and vomit (principal); I11.0 Hypertensive heart disease with heart failure; I50.9 Heart failure, unspecified; I48.91 Unspecified atrial fibrillation; E66.9 Obesity, unspecified; Z95.0 Presence of cardiac pacemaker; Z86.73 Personal history of transient ischemic attack (TIA), and cerebral infarction without residual deficits
CPT/HCPCS: 36415; 51701; 51798; 71045; 80053; 81001; 83735; 83880; 84484; 85007; 85027; 85610; 85652; 85730; 86140; 87040; 93005; 94640; 99285; A9270; 93010; 99284; J7620-GY

== ENCOUNTER 2019-05-29 07:46 | Emergency (ER) | payer MEDICARE, OTHER, MEDICAID ==
[2019-05-29 08:01] VITALS: BP 129/58; PULSE 83
[2019-05-29] MEDS ORDERED: Sodium Chloride 0.9% 10 ML Syringe FLUSH PRN (08:20)
[2019-05-29] MEDS ORDERED: Furosemide 40 MG/4 ML VIAL IVPUSH ONE (09:58)
[2019-05-29] MEDS ORDERED: Albuterol/Ipratropium 3.0-0.5 MG/3 ML Neb Soln NEB ONE (09:58)
[2019-05-29] MEDS: Acetaminophen 325 MG Tab PO ONE ×2 (10:11→10:24)
[2019-05-29] MEDS ORDERED: Acetaminophen 650 MG Supp RECTAL ONE (10:20)
--- NOTE | 2019-05-29 10:27 | CR ---
Chest: Portable view of the chest was obtained. Comparison: Previous chest x-ray of 10/22/18. Heart is slightly enlarged. Tortuous thoracic aorta is seen. Pacemaker is noted. Previous sternotomy is noted. Slight linear scarring is noted along the medial right lung base. Lungs show no acute parenchymal change. Bony structures are grossly intact. Pressure: 1. Findings as noted above. 2. Nothing acute is definitely appreciated. Diagnostic code #2 This report was dictated in [place] Standard Time
--- NOTE | 2019-05-29 12:01 | EDM.PDOC ---
ED HPI GENERAL MEDICAL PROBLEM - General Chief Complaint: Respiratory Problem Stated Complaint: [facility] Time Seen by Provider: 05/29/19 08:12 Source of Information: Reports: Patient, RN Notes Reviewed - History of Present Illness INITIAL COMMENTS - FREE TEXT/NARRATIVE: 89 year old female with cough for about 1 to 2 days, perhaps longer. She has had some wheezing and shortness of breath. There is no report of fever. She was brought by ambulance from the [facility]. She has hx of aspiration, difficulty swallowing. Currently getting all of feedings through a feeding tube. Patient denies chest or abd pain at time of exam. Noted to have frequent dry cough. - Related Data Allergies Allergy/AdvReac Type Severity Reaction Status Date / Time amoxicillin [From Augmentin] Allergy Other Verified 05/29/19 08:11 clavulanic acid Allergy Other Verified 05/29/19 08:11 [From Augmentin] Home Meds: Home Meds Acetaminophen 650 mg GTUBE TID PRN 02/25/17 [History] Amino Ac/Protein Hydr/Whey Pro [Prosource Tf Liquid Packet] 1 oz GTUBE BID 02/25 [History] Amiodarone [Cordarone] 200 mg GTUBE DAILY 02/25/17 [History] Aspirin 81 mg GTUBE DAILY 02/25/17 [History] Clopidogrel [Plavix] 75 mg GTUBE DAILY 02/25/17 [History] Docusate Sodium [Diocto] 15 ml GTUBE BID 02/25/17 [History] Metoprolol Tartrate 100 mg GTUBE BID 02/25/17 [History] atorvaSTATin [Lipitor] 5 mg GTUBE DAILY 02/25/17 [History] Furosemide [Lasix Oral Soln] 20 mg PO DAILY 09/01/18 [History] Ketoconazole [Nizoral 2% Crm] 1 applic TOP DAILY PRN 09/01/18 [History] Multivitamin [Daily Multiple Vitamin] 1 tab PEGTUBE BEDTIME 09/01/18 [History] Acetaminophen [Tylenol] 650 mg GTUBE Q4H PRN 10/20/18 [History] Gabapentin [Neurontin] 100 mg GTUBE TID 10/20/18 [History] Hydrocortisone [Hydrocortisone 1% Crm] 1 applic TOP BID PRN 10/20/18 [History] Lactose-Reduced Food/Fiber [Isosource 1.5 Marcello Liquid] 250 ml GTUBE TID 10/20/18 [History] Tacrolimus 1 applic TOP ASDIRECTED 10/20/18 [History] Triamcinolone Acetonide [Triamcinolone Acetonide 0.1% Oint] 1 applic TOP ASDIRECTED PRN 10/20/18 [History] Albuterol Sulfate 1 inh IH Q6HR PRN 05/29/19 [History] Ipratropium/Albuterol Sulfate [Iprat-Albut 0.5-3(2.5) mg/3 ml] 3 ml IH TID 05/29 [History] L Acidophil/B Lactis/B Longum [Florajen3] 460 mg GTUBE DAILY 05/29/19 [History] Polyvinyl Alcohol/Povidone/Pf [Refresh Classic Eye Drops] 2 drop OP QID [History] amLODIPine Besylate [Norvasc] 10 mg GTUBE DAILY 05/29/19 [History] hydrALAZINE [Apresoline] 10 mg GTUBE TID 05/29/19 [History] levoFLOXacin [Levaquin] 500 mg GTUBE Q48H 05/29/19 [History] Past Medical History Cardiovascular History: Reports: Afib, Heart Failure, High Cholesterol, Hypertension, Pacemaker, Other (See Below) Other Cardiovascular History: sick sinus syndrome Gastrointestinal History: Reports: Chronic Constipation, GERD Other Gastrointestinal History: pt received feeding via peg tube. For the last 3-1/2 years. 4 months ago she started eating again. 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 As far as I can ascertain most her medicines are still given through the PEG tube. 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 Red skin folds in the groin, covered with juan carlos upon arrival to the floor. 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 - Past Surgical History HEENT Surgical History: Reports: None Cardiovascular Surgical History: Reports: Pacer Musculoskeletal Surgical History: Reports: Amputation Social & Family History - Family History Family Medical History: Noncontributory - Tobacco Use Smoking Status *Q: Never Smoker - Caffeine Use Caffeine Use: Reports: None - Recreational Drug Use Recreational Drug Use: No - Living Situation & Occupation Living situation: Reports: Extended Care Facility ([facility]) Occupation: Disabled ED ROS GENERAL - Review of Systems Review Of Systems: See Below Constitutional: Denies: Fever, Chills HEENT: Denies: Throat Pain Respiratory: Reports: Shortness of Breath, Wheezing, Cough. Denies: Sputum Cardiovascular: Denies: Chest Pain GI/Abdominal: Denies: Abdominal Pain, Nausea, Vomiting Musculoskeletal: Reports: No Symptoms Skin: Reports: No Symptoms Neurological: Denies: Headache ED EXAM, GENERAL - Physical Exam Exam: See Below General Appearance: Alert, Other (frequent dry nonprod cough, no other visible distress) Eye Exam: Bilateral Eye: PERRL Throat/Mouth: Normal Inspection. No: Inflammation Head: Atraumatic. No: Facial Swelling Neck: Supple, Other (no JVD). No: Lymphadenopathy (L), Lymphadenopathy (R) Respiratory/Chest: Respiratory Distress (mild tachypnea), Wheezing (mild). No: Rhonchi, Retractions Cardiovascular: Regular Rate, Rhythm GI/Abdominal: Soft, Non-Tender Extremities: Other (L below the hip amputation, RLE erythematous suggetive for chronic periph vasc disease) Neurological: Alert, Other (mild confusion) Skin Exam: Warm, Dry EKG INTERPRETATION EKG Date: 05/29/19 Rhythm: Other (Paced rhythm) Rate (Beats/Min): 71 QRS: Wide Course - Vital Signs Last Recorded V/S: Last Vital Signs Temp 97.2 F 05/29/19 07:51 Pulse 83 05/29/19 07:51 Resp 26 H 05/29/19 07:51 BP 129/58 L 05/29/19 07:51 Pulse Ox 95 05/29/19 09:58 - Orders/Labs/Meds Orders: Active Orders 24 hr Category Date Time Status EKG 12 Lead [EKG Documentation Completion] [RC] STAT Care 05/29/19 08:21 Active Oxygen Therapy [RC] ASDIRECTED Care 05/29/19 08:21 Active Peripheral IV Care [RC] . DIRECTED Care 05/29/19 08:21 Active RT Aerosol Therapy [RC] ASDIRECTED Care 05/29/19 09:58 Active Peripheral IV Insertion Adult [OM.PC] Stat Oth 05/29/19 08:21 Ordered Labs: Laboratory Tests 05/29/19 05/29/19 05/29/19 Range/Units 08:53 08:55 08:55 WBC 9.64 (3.98-10.04) K/mm3 RBC 4.49 (3.98-5.22) M/mm3 Hgb 15.5 D (11.2-15.7) gm/dl Hct 46.3 H (34.1-44.9) % MCV 103.1 H D (79.4-94.8) fl MCH 34.5 H (25.6-32.2) pg MCHC 33.5 (32.2-35.5) g/dl RDW Std Deviation 57.7 H (36.4-46.3) fL Plt Count 211 (182-369) K/mm3 MPV 11.6 (9.4-12.3) fl Neut % (Auto) 75.2 H (34.0-71.1) % Lymph % (Auto) 13.8 L (19.3-51.7) % [place] % (Auto) 8.5 (4.7-12.5) % Eos % (Auto) 2.0 (0.7-5.8) Baso % (Auto) 0.3 (0.1-1.2) % Neut # (Auto) 7.25 H (1.56-6.13) K/mm3 Lymph # (Auto) 1.33 (1.18-3.74) K/mm3 [place] # (Auto) 0.82 H (0.24-0.36) K/mm3 Eos # (Auto) 0.19 (0.04-0.36) K/mm3 Baso # (Auto) 0.03 (0.01-0.08) K/mm3 Sodium 136 (136-145) mEq/L Potassium 5.0 (3.5-5.1) mEq/L Chloride 100 (98-107) mEq/L Carbon Dioxide 26 (21-32) mEq/L Anion Gap 15.0 (5-15) BUN 22 H (7-18) mg/dL Creatinine 0.7 (0.55-1.02) mg/dL Est Cr Clr Drug Dosing TNP Estimated GFR (MDRD) > 60 (>60) mL/min BUN/Creatinine Ratio 31.4 H (14-18) Glucose 160 H (83-115) mg/dL Calcium 9.5 (8.5-10.1) mg/dL Total Bilirubin 0.3 (0.2-1.0) mg/dL AST 34 (15-37) U/L ALT 23 (14-59) U/L Alkaline Phosphatase 106 (46-116) U/L Troponin I < 0.017 (0.00-0.056) ng/mL C-Reactive Protein 4.5 H* (<1.0) mg/dL NT-Pro-B Natriuret Pep (0-450) pg/mL Total Protein 7.6 (6.4-8.2) g/dl Albumin 2.8 L (3.4-5.0) g/dl Globulin 4.8 gm/dL Albumin/Globulin Ratio 0.6 L (1-2) 05/29/19 Range/Units 08:55 WBC (3.98-10.04) K/mm3 RBC (3.98-5.22) M/mm3 Hgb (11.2-15.7) gm/dl Hct (34.1-44.9) % MCV (79.4-94.8) fl MCH (25.6-32.2) pg MCHC (32.2-35.5) g/dl RDW Std Deviation (36.4-46.3) fL Plt Count (182-369) K/mm3 MPV (9.4-12.3) fl Neut % (Auto) (34.0-71.1) % Lymph % (Auto) (19.3-51.7) % [place] % (Auto) (4.7-12.5) % Eos % (Auto) (0.7-5.8) Baso % (Auto) (0.1-1.2) % Neut # (Auto) (1.56-6.13) K/mm3 Lymph # (Auto) (1.18-3.74) K/mm3 [place] # (Auto) (0.24-0.36) K/mm3 Eos # (Auto) (0.04-0.36) K/mm3 Baso # (Auto) (0.01-0.08) K/mm3 Sodium (136-145) mEq/L Potassium (3.5-5.1) mEq/L Chloride (98-107) mEq/L Carbon Dioxide (21-32) mEq/L Anion Gap (5-15) BUN (7-18) mg/dL Creatinine (0.55-1.02) mg/dL Est Cr Clr Drug Dosing Estimated GFR (MDRD) (>60) mL/min BUN/Creatinine Ratio (14-18) Glucose (83-115) mg/dL Calcium (8.5-10.1) mg/dL Total Bilirubin (0.2-1.0) mg/dL AST (15-37) U/L ALT (14-59) U/L Alkaline Phosphatase (46-116) U/L Troponin I (0.00-0.056) ng/mL C-Reactive Protein (<1.0) mg/dL NT-Pro-B Natriuret Pep 2697 H (0-450) pg/mL Total Protein (6.4-8.2) g/dl Albumin (3.4-5.0) g/dl Globulin gm/dL Albumin/Globulin Ratio (1-2) Meds: Medications Discontinued Medications Generic Name Dose Route Start Last Admin Trade Name Freq PRN Reason Stop Dose Admin Acetaminophen 975 mg 05/29/19 09:58 05/29/19 10:24 Tylenol PO 05/29/19 09:59 Not Given NOW ONE Acetaminophen 650 mg 05/29/19 10:20 05/29/19 10:24 Tylenol RECTAL 05/29/19 10:21 650 mg NOW ONE Administration Albuterol/Ipratropium 3 ml 05/29/19 09:58 05/29/19 10:06 Duoneb 3.0-0.5 Mg/3 Ml NEB 05/29/19 09:59 3 ml ONETIME ONE Administration Furosemide 20 mg 05/29/19 09:58 05/29/19 10:11 Lasix IVPUSH 05/29/19 09:59 20 mg NOW ONE Administration Sodium Chloride 10 ml 05/29/19 08:20 05/29/19 09:18 Saline Flush FLUSH 10 ml ASDIRECTED PRN Administration Keep Vein Open Departure - Departure Time of Disposition: 12:23 Disposition: Home, Self-Care 01 Condition: Fair Clinical Impression: Influenza - Discharge Information Instructions: Influenza, Adult Referrals: Bret Torres MD [Primary Care Provider] - Forms: ED Department Discharge Additional Instructions: Influenza screen was positive for influenza B. Prescription has been provided for Tamiflu suspension 75 mg twice a day for 5 days if able to get that filled and started today. If not able to get that started today than we will be be out of the time window of therapeutic benefit. Continue neb treatments and other prior medications as previously prescribed, Tylenol if needed for fever or other discomfort. Call medical provider as needed. Return to ED as needed if symptoms worsening in any way. Sepsis Event Note - Evaluation Sepsis Screening Result: No Definite Risk - Focused Exam Date Exam was Performed: 05/30/19 Time Exam was Performed: 08:34 - My Orders Last 24 Hours: My Active Orders 05/29/19 08:21 EKG 12 Lead [EKG Documentation Completion] [RC] STAT Oxygen Therapy [RC] ASDIRECTED Peripheral IV Care [RC] . DIRECTED Peripheral IV Insertion Adult [OM.PC] Stat 05/29/19 09:58 RT Aerosol Therapy [RC] ASDIRECTED - Assessment/Plan Last 24 Hours: My Active Orders 05/29/19 08:21 EKG 12 Lead [EKG Documentation Completion] [RC] STAT Oxygen Therapy [RC] ASDIRECTED Peripheral IV Care [RC] . DIRECTED Peripheral IV Insertion Adult [OM.PC] Stat 05/29/19 09:58 RT Aerosol Therapy [RC] ASDIRECTED
== END 2019-05-29 13:15 | disposition home or self-care (01) ==
LOC: JD.ED 07:46
DX: J11.1 Influenza due to unidentified influenza virus with other respiratory manifestations (principal); I11.0 Hypertensive heart disease with heart failure; I50.9 Heart failure, unspecified; E66.9 Obesity, unspecified; I48.91 Unspecified atrial fibrillation; E78.00 Pure hypercholesterolemia, unspecified; Z88.0 Allergy status to penicillin; Z88.1 Allergy status to other antibiotic agents; Z79.82 Long term (current) use of aspirin; Z79.01 Long term (current) use of anticoagulants; Z86.73 Personal history of transient ischemic attack (TIA), and cerebral infarction without residual deficits; Z79.899 Other long term (current) drug therapy
CPT/HCPCS: 36415; 71045; 80053; 83880; 84484; 85025; 86140; 87804; 93005; 94640; 96374; 99285; A9270; J1940; J7620-GY

== ENCOUNTER 2019-06-09 16:11 | Emergency (ER) | payer MEDICARE, OTHER, MEDICAID ==
[2019-06-09 16:18] VITALS: BP 133/70; PULSE 95
--- NOTE | 2019-06-09 17:40 | CT ---
CT chest Technique: Multiple axial sections through the chest were obtained. Intravenous contrast was not utilized. Comparison: Prior chest x-ray of 05/29/19. Findings: Small nonobstructing calculus is noted within the right kidney. Atherosclerotic change is noted with the visualized abdominal aorta and thoracic aorta. Pacemaker is noted causing some artifact. Previous sternotomy is noted. Mediastinum and hilar region show no adenopathy. Coronary artery calcification is seen. No axillary adenopathy is seen. Very small bilateral pleural effusions are seen. Hazy upper lobe parenchymal densities are seen on both sides which appear symmetric. Impression: 1. Small bilateral pleural effusions. 2. Hazy parenchymal densities within both upper lungs. Differential includes pulmonary vascular congestion/CHF as well as bronchitis. 3. Other findings believed to be incidental and nonacute. Diagnostic code #3 This report was dictated in [place] Standard Time
--- NOTE | 2019-06-09 17:51 | EDM.PDOC ---
ED HPI GENERAL MEDICAL PROBLEM - General Chief Complaint: Respiratory Problem Stated Complaint: [facility] Time Seen by Provider: 06/09/19 16:16 Source of Information: Reports: Patient, Senior Living Records History Limitations: Reports: No Limitations - History of Present Illness INITIAL COMMENTS - FREE TEXT/NARRATIVE: The patient presents from [facility] with wheezing and coughing up blood. She was seen here recently and diagnosed with influenza B. She is on tamiflu, oxygen and breathing treatments. She says she feels "lousy." She was coughing up whit phlegm and now she was coughing up some blood tonight. She has no chest pain, shortness of breath, abdominal pain, nausea or vomiting. She does not want an IV or any blood drawn. Onset: Gradual Duration: Hour(s): Severity: Moderate Improves with: Reports: None Worsens with: Reports: None Associated Symptoms: Reports: Cough, Shortness of Breath. Denies: Fever/Chills , Headaches, Nausea/Vomiting - Related Data Allergies Allergy/AdvReac Type Severity Reaction Status Date / Time amoxicillin [From Augmentin] Allergy Other Verified 05/29/19 08:11 clavulanic acid Allergy Other Verified 05/29/19 08:11 [From Augmentin] Home Meds: Home Meds Amino Ac/Protein Hydr/Whey Pro [Prosource Tf Liquid Packet] 1 oz GTUBE BID 02/25 [History] Amiodarone [Cordarone] 200 mg GTUBE DAILY 02/25/17 [History] Aspirin 81 mg GTUBE DAILY 02/25/17 [History] Clopidogrel [Plavix] 75 mg GTUBE DAILY 02/25/17 [History] Docusate Sodium [Diocto] 15 ml GTUBE BID 02/25/17 [History] Metoprolol Tartrate 100 mg GTUBE BID 02/25/17 [History] atorvaSTATin [Lipitor] 5 mg GTUBE DAILY 02/25/17 [History] Furosemide [Lasix Oral Soln] 20 mg GTUBE DAILY 09/01/18 [History] Ketoconazole [Nizoral 2% Crm] 1 applic TOP DAILY PRN 09/01/18 [History] Multivitamin [Daily Multiple Vitamin] 1 tab PEGTUBE BEDTIME 09/01/18 [History] Acetaminophen [Tylenol] 650 mg GTUBE Q4H PRN 10/20/18 [History] Gabapentin [Neurontin] GTUBE TID 10/20/18 [History] Lactose-Reduced Food/Fiber [Isosource 1.5 Marcello Liquid] 250 ml GTUBE TID 10/20/18 [History] Tacrolimus 1 applic TOP MOWEFR 10/20/18 [History] Albuterol Sulfate 1 inh IH Q6HR PRN 05/29/19 [History] Ipratropium/Albuterol Sulfate [Iprat-Albut 0.5-3(2.5) mg/3 ml] 3 ml IH TID 05/29 [History] L Acidophil/B Lactis/B Longum [Florajen3] 460 mg GTUBE DAILY 05/29/19 [History] Polyvinyl Alcohol/Povidone/Pf [Refresh Classic Eye Drops] 2 drop OP QID [History] amLODIPine Besylate [Norvasc] 10 mg GTUBE DAILY 05/29/19 [History] hydrALAZINE [Apresoline] 10 mg GTUBE TID 05/29/19 [History] Acetaminophen [Tylenol] 650 mg GTUBE TID 06/09/19 [History] Biotene. 06/09/19 [History] Dimethicone [Cerave] 15 ml TOP BID 06/09/19 [History] Doxycycline [Vibramycin] 100 mg PO BID #14 cap 06/09/19 [Rx] Gabapentin 8 ml GTUBE Q8HR 06/09/19 [History] Ketoconazole [Nizoral 2% Crm] 1 applic TOP SUTH 06/09/19 [History] Ketoconazole [Nizoral 2% Shampoo] 1 applic TOP TUTH 06/09/19 [History] Nystatin PRN 06/09/19 [History] Terbinafine HCl [Lamisil At] 1 applic TOP MOWEFR 06/09/19 [History] Trolamine Salicylate/Aloe Vera [Aspercreme 10%] 1 applic TOP BID PRN 06/09/19 [ History] Past Medical History Cardiovascular History: Reports: Afib, Heart Failure, High Cholesterol, Hypertension, Pacemaker, Other (See Below) Other Cardiovascular History: sick sinus syndrome Gastrointestinal History: Reports: Chronic Constipation, GERD Other Gastrointestinal History: pt received feeding via peg tube. For the last 3-1/2 years. 4 months ago she started eating again. 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 As far as I can ascertain most her medicines are still given through the PEG tube. 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 Red skin folds in the groin, covered with juan carlos upon arrival to the floor. 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 - Past Surgical History HEENT Surgical History: Reports: None Cardiovascular Surgical History: Reports: Pacer Musculoskeletal Surgical History: Reports: Amputation Social & Family History - Family History Family Medical History: Noncontributory - Tobacco Use Smoking Status *Q: Former Smoker Used Tobacco, but Quit: Yes Month/Year Tobacco Last Used: 14 years ago - Caffeine Use Caffeine Use: Reports: None - Recreational Drug Use Recreational Drug Use: No - Living Situation & Occupation Living situation: Reports: Extended Care Facility ([facility]) Occupation: Disabled ED ROS GENERAL - Review of Systems Review Of Systems: See Below Constitutional: Reports: No Symptoms HEENT: Reports: No Symptoms Respiratory: Reports: Cough. Denies: Shortness of Breath Cardiovascular: Reports: No Symptoms Endocrine: Reports: No Symptoms GI/Abdominal: Reports: No Symptoms : Reports: No Symptoms Musculoskeletal: Reports: No Symptoms ED EXAM, GENERAL - Physical Exam Exam: See Below Exam Limited By: No Limitations General Appearance: Alert, No Apparent Distress Ears: Normal External Exam Nose: Normal Inspection Head: Atraumatic, Normocephalic Neck: Normal Inspection Respiratory/Chest: No Respiratory Distress, Decreased Breath Sounds Cardiovascular: Regular Rate, Rhythm, No Edema, No Murmur GI/Abdominal: Soft, Non-Tender, No Organomegaly, No Mass Back Exam: Normal Inspection Extremities: Normal Inspection Course - Vital Signs Last Recorded V/S: Last Vital Signs Temp 97.6 F 01/04/20 16:15 Pulse 95 06/09/19 16:15 Resp 18 06/09/19 16:15 BP 133/70 06/09/19 16:15 Pulse Ox 98 06/09/19 16:15 - Orders/Labs/Meds Orders: Active Orders 24 hr Category Date Time Status cefTRIAXone 1 GM with Lidocaine 1% 2.1 ML IM Med 06/09/19 18:00 Ordered cefTRIAXone [Rocephin] 1 gm Lidocaine 1% [Xylocaine 1%] 2.1 ml IM Q24H - Re-Assessments/Exams Free Text/Narrative Re-Assessment/Exam: 06/09/19 17:51 The patient did not want any IV or labs. I ordered a CT of her chest without contrast and that showed small bilateral pleural effusions. Hazy parenchymal densities within both lungs. Differential includes pulmonary vascular congestion/CHF as well as bronchitis. Other findings believed to be incidental and nonacute. 06/09/19 18:00 I will give her a shot of rocephin and get her on some doxycycline 2 times per day for 7 days. Departure - Departure Time of Disposition: 18:00 Disposition: Home, Self-Care 01 Condition: Good Clinical Impression: Bronchitis, Influenza - Discharge Information *PRESCRIPTION DRUG MONITORING PROGRAM REVIEWED*: Not Applicable *COPY OF PRESCRIPTION DRUG MONITORING REPORT IN PATIENT SHANNON: Not Applicable Prescriptions: Doxycycline [Vibramycin] 100 mg PO BID #14 cap Referrals: Bret Torres MD [Primary Care Provider] - 1 Week Forms: ED Department Discharge Additional Instructions: Take your medication as prescribed and continue with the breathing treatments and oxygen. Take the doxycycline 2 times per day for 7 days. Follow up with Dr Torres within a week. Please return if you are worse. Sepsis Event Note - Evaluation Sepsis Screening Result: No Definite Risk - Focused Exam Vital Signs: Vital Signs Temp Pulse Resp BP Pulse Ox 06/09/19 16:15 97.6 F 95 18 133/70 98 Date Exam was Performed: 06/09/19 Time Exam was Performed: 18:00 - My Orders Last 24 Hours: My Active Orders 06/09/19 18:00 cefTRIAXone 1 GM with Lidocaine 1% 2.1 ML IM cefTRIAXone [Rocephin] 1 gm Lidocaine 1% [Xylocaine 1%] 2.1 ml IM Q24H - Assessment/Plan Last 24 Hours: My Active Orders 06/09/19 18:00 cefTRIAXone 1 GM with Lidocaine 1% 2.1 ML IM cefTRIAXone [Rocephin] 1 gm Lidocaine 1% [Xylocaine 1%] 2.1 ml IM Q24H
[2019-06-09] MEDS ORDERED: cefTRIAXone 1 GM, Lidocaine 1% 2.1 ML IM SCH ×2 (18:00)
== END 2019-06-09 18:58 | disposition home or self-care (01) ==
LOC: JD.ED 16:11
DX: J11.1 Influenza due to unidentified influenza virus with other respiratory manifestations (principal); J40 Bronchitis, not specified as acute or chronic; I11.0 Hypertensive heart disease with heart failure; I50.9 Heart failure, unspecified; Z88.1 Allergy status to other antibiotic agents; Z79.899 Other long term (current) drug therapy; Z79.82 Long term (current) use of aspirin; Z87.891 Personal history of nicotine dependence
CPT/HCPCS: 71250; 96372; 99284; J0696; J2001; 99283

== ENCOUNTER 2019-06-23 08:08 | Emergency (ER) | payer MEDICARE, OTHER, MEDICAID ==
[2019-06-23] MEDS ORDERED: predniSONE 20 MG Tab PO ONE (08:32)
[2019-06-23] MEDS ORDERED: Albuterol/Ipratropium 3.0-0.5 MG/3 ML Neb Soln NEB ONE ×2 (08:32→10:06)
--- NOTE | 2019-06-23 08:38 | EDM.PDOC ---
ED HPI GENERAL MEDICAL PROBLEM - General Chief Complaint: Respiratory Problem Stated Complaint: [facility] Time Seen by Provider: 06/23/19 08:24 Source of Information: Reports: Patient, Family, Snf Records History Limitations: Reports: No Limitations - History of Present Illness INITIAL COMMENTS - FREE TEXT/NARRATIVE: The patient presents by [facility] for shortness of breath. She is a resident of [facility]. Last night she became anxious and she had some shortness of breath. That has continued this morning. She did have a breathing treatment and that did help some. She is normally on oxygen. Her family member in the room says she has been dealing with this for a few weeks. She has a history of COPD and CHF. She has a cough at times but no fever. She has no chest pain. She has no abdominal pain, nausea, or vomiting. Onset: Gradual Duration: Day(s): (Last night) Severity: Moderate Improves with: Reports: None Worsens with: Reports: None Associated Symptoms: Reports: Cough, Shortness of Breath. Denies: Chest Pain, Fever/Chills, Headaches, Nausea/Vomiting - Related Data Allergies Allergy/AdvReac Type Severity Reaction Status Date / Time amoxicillin [From Augmentin] Allergy Other Verified 05/29/19 08:11 ceftriaxone [From Rocephin] Allergy Hives Verified 06/23/19 08:38 clavulanic acid Allergy Other Verified 05/29/19 08:11 [From Augmentin] Home Meds: Home Meds Amino Ac/Protein Hydr/Whey Pro [Prosource Tf Liquid Packet] 1 oz GTUBE BID 02/25 [History] Amiodarone [Cordarone] 200 mg GTUBE DAILY 02/25/17 [History] Aspirin 81 mg GTUBE DAILY 02/25/17 [History] Clopidogrel [Plavix] 75 mg GTUBE DAILY 02/25/17 [History] Docusate Sodium [Diocto] 15 ml GTUBE BID 02/25/17 [History] Metoprolol Tartrate 100 mg GTUBE BID 02/25/17 [History] atorvaSTATin [Lipitor] 5 mg GTUBE DAILY 02/25/17 [History] Ketoconazole [Nizoral 2% Crm] 1 applic TOP TID PRN 09/01/18 [History] Multivitamin [Daily Multiple Vitamin] 1 tab PEGTUBE BEDTIME 09/01/18 [History] Acetaminophen [Tylenol] 650 mg GTUBE Q4H PRN 10/20/18 [History] Lactose-Reduced Food/Fiber [Isosource 1.5 Marcello Liquid] 250 ml GTUBE TID 10/20/18 [History] Tacrolimus 1 applic TOP MOWEFR 10/20/18 [History] Albuterol Sulfate 1 inh IH Q6HR PRN 05/29/19 [History] Ipratropium/Albuterol Sulfate [Iprat-Albut 0.5-3(2.5) mg/3 ml] 3 ml IH TID 05/29 [History] L Acidophil/B Lactis/B Longum [Florajen3] 460 mg GTUBE DAILY 05/29/19 [History] Polyvinyl Alcohol/Povidone/Pf [Refresh Classic Eye Drops] 2 drop OP QID [History] amLODIPine Besylate [Norvasc] 10 mg GTUBE DAILY 05/29/19 [History] hydrALAZINE [Apresoline] 10 mg GTUBE TID 05/29/19 [History] Acetaminophen [Tylenol] 650 mg GTUBE TID 06/09/19 [History] Biotene. 06/09/19 [History] Gabapentin 8 ml GTUBE Q8HR 06/09/19 [History] Ketoconazole [Nizoral 2% Crm] 1 applic TOP BID 06/09/19 [History] Ketoconazole [Nizoral 2% Shampoo] 1 applic TOP TUTH 06/09/19 [History] Nystatin 1 gm TOP DAILY PRN 06/09/19 [History] Terbinafine HCl [Lamisil At] 1 applic TOP MOWEFR 06/09/19 [History] Trolamine Salicylate/Aloe Vera [Aspercreme 10%] 1 applic TOP BID PRN 06/09/19 [ History] Budesonide [Pulmicort] 2 ml NEB BID 06/23/19 [History] Escitalopram Oxalate [Lexapro] 5 mg GTUBE DAILY 06/23/19 [History] Levofloxacin [Levaquin] 750 mg PO DAILY #5 tablet 06/23/19 [Rx] Past Medical History Cardiovascular History: Reports: Afib, Heart Failure, High Cholesterol, Hypertension, Pacemaker, Other (See Below) Other Cardiovascular History: sick sinus syndrome Gastrointestinal History: Reports: Chronic Constipation, GERD Other Gastrointestinal History: pt received feeding via peg tube. For the last 3-1/2 years. 4 months ago she started eating again. 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 As far as I can ascertain most her medicines are still given through the PEG tube. 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 Red skin folds in the groin, covered with juan carlos upon arrival to the floor. 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 - Past Surgical History HEENT Surgical History: Reports: None Cardiovascular Surgical History: Reports: Pacer Musculoskeletal Surgical History: Reports: Amputation Social & Family History - Family History Family Medical History: Noncontributory - Caffeine Use Caffeine Use: Reports: None - Living Situation & Occupation Living situation: Reports: Extended Care Facility ([facility]) Occupation: Disabled ED ROS GENERAL - Review of Systems Review Of Systems: See Below Constitutional: Reports: No Symptoms HEENT: Reports: No Symptoms Respiratory: Reports: Shortness of Breath, Cough Cardiovascular: Reports: No Symptoms Endocrine: Reports: No Symptoms GI/Abdominal: Reports: No Symptoms : Reports: No Symptoms Musculoskeletal: Reports: No Symptoms ED EXAM, GENERAL - Physical Exam Exam: See Below Exam Limited By: No Limitations General Appearance: Alert, No Apparent Distress Ears: Normal External Exam Nose: Normal Inspection Head: Atraumatic, Normocephalic Neck: Normal Inspection Respiratory/Chest: No Respiratory Distress, Decreased Breath Sounds Cardiovascular: Regular Rate, Rhythm, No Edema, No Murmur GI/Abdominal: Soft, Non-Tender, No Organomegaly, No Mass Back Exam: Normal Inspection Extremities: Other (Old ecchymosis to both arms) Neurological: Alert, Oriented, No Motor/Sensory Deficits EKG INTERPRETATION EKG Date: 06/23/19 Time: 08:38 Rhythm: Other (atrial-ventricular dual-paced rhythm) Rate (Beats/Min): 70 Course - Vital Signs Last Recorded V/S: Last Vital Signs Temp 97.1 F 06/23/19 08:23 Pulse 72 06/23/19 11:10 Resp 20 06/23/19 11:10 BP 148/58 H 06/23/19 11:10 Pulse Ox 95 06/23/19 11:10 - Orders/Labs/Meds Orders: Active Orders 24 hr Category Date Time Status Cardiac Monitoring [RC] . DIRECTED Care 06/23/19 08:31 Active EKG Documentation Completion [RC] STAT Care 06/23/19 08:31 Active Oxygen Therapy [RC] PRN Care 06/23/19 08:31 Active RT Aerosol Therapy [RC] ASDIRECTED Care 06/23/19 08:32 Active RT Aerosol Therapy [RC] ASDIRECTED Care 06/23/19 10:06 Active CULTURE BLOOD [BC] Stat Lab 06/23/19 10:20 Received Clindamycin Phosphate [Cleocin] Med 06/23/19 11:13 Once 300 mg IM ONETIME ONE Labs: Laboratory Tests 06/23/19 06/23/19 06/23/19 Range/Units 10:20 10:20 10:20 WBC 14.30 H (3.98-10.04) K/mm3 RBC 3.82 L (3.98-5.22) M/mm3 Hgb 12.7 D (11.2-15.7) gm/dl Hct 41.1 (34.1-44.9) % MCV 107.6 H D (79.4-94.8) fl MCH 33.2 H (25.6-32.2) pg MCHC 30.9 L (32.2-35.5) g/dl RDW Std Deviation 59.3 H (36.4-46.3) fL Plt Count 235 (182-369) K/mm3 MPV 10.6 (9.4-12.3) fl Neut % (Auto) 79.1 H (34.0-71.1) % Lymph % (Auto) 13.8 L (19.3-51.7) % Barbour % (Auto) 5.5 (4.7-12.5) % Eos % (Auto) 1.0 (0.7-5.8) Baso % (Auto) 0.3 (0.1-1.2) % Neut # (Auto) 11.30 H (1.56-6.13) K/mm3 Lymph # (Auto) 1.98 (1.18-3.74) K/mm3 Barbour # (Auto) 0.79 H (0.24-0.36) K/mm3 Eos # (Auto) 0.15 (0.04-0.36) K/mm3 Baso # (Auto) 0.04 (0.01-0.08) K/mm3 Manual Slide Review Abnormal smear Sodium 138 (136-145) mEq/L Potassium 4.4 (3.5-5.1) mEq/L Chloride 99 (98-107) mEq/L Carbon Dioxide 32 (21-32) mEq/L Anion Gap 11.4 (5-15) BUN 29 H (7-18) mg/dL Creatinine 0.8 (0.55-1.02) mg/dL Est Cr Clr Drug Dosing TNP Estimated GFR (MDRD) > 60 (>60) mL/min BUN/Creatinine Ratio 36.3 H (14-18) Glucose 142 H (83-115) mg/dL Lactic Acid (0.4-2.0) mmol/L Calcium 9.2 (8.5-10.1) mg/dL Total Bilirubin 0.3 (0.2-1.0) mg/dL AST 18 (15-37) U/L ALT 21 (14-59) U/L Alkaline Phosphatase 83 (46-116) U/L Troponin I < 0.017 (0.00-0.056) ng/mL NT-Pro-B Natriuret Pep 5257 H (0-450) pg/mL Total Protein 6.8 (6.4-8.2) g/dl Albumin 2.7 L (3.4-5.0) g/dl Globulin 4.1 gm/dL Albumin/Globulin Ratio 0.7 L (1-2) /18/20 Range/Units 10:20 WBC (3.98-10.04) K/mm3 RBC (3.98-5.22) M/mm3 Hgb (11.2-15.7) gm/dl Hct (34.1-44.9) % MCV (79.4-94.8) fl MCH (25.6-32.2) pg MCHC (32.2-35.5) g/dl RDW Std Deviation (36.4-46.3) fL Plt Count (182-369) K/mm3 MPV (9.4-12.3) fl Neut % (Auto) (34.0-71.1) % Lymph % (Auto) (19.3-51.7) % Barbour % (Auto) (4.7-12.5) % Eos % (Auto) (0.7-5.8) Baso % (Auto) (0.1-1.2) % Neut # (Auto) (1.56-6.13) K/mm3 Lymph # (Auto) (1.18-3.74) K/mm3 Barbour # (Auto) (0.24-0.36) K/mm3 Eos # (Auto) (0.04-0.36) K/mm3 Baso # (Auto) (0.01-0.08) K/mm3 Manual Slide Review Sodium (136-145) mEq/L Potassium (3.5-5.1) mEq/L Chloride (98-107) mEq/L Carbon Dioxide (21-32) mEq/L Anion Gap (5-15) BUN (7-18) mg/dL Creatinine (0.55-1.02) mg/dL Est Cr Clr Drug Dosing Estimated GFR (MDRD) (>60) mL/min BUN/Creatinine Ratio (14-18) Glucose (83-115) mg/dL Lactic Acid 2.1 H* (0.4-2.0) mmol/L Calcium (8.5-10.1) mg/dL Total Bilirubin (0.2-1.0) mg/dL AST (15-37) U/L ALT (14-59) U/L Alkaline Phosphatase (46-116) U/L Troponin I (0.00-0.056) ng/mL NT-Pro-B Natriuret Pep (0-450) pg/mL Total Protein (6.4-8.2) g/dl Albumin (3.4-5.0) g/dl Globulin gm/dL Albumin/Globulin Ratio (1-2) Meds: Medications Discontinued Medications Generic Name Dose Route Start Last Admin Trade Name Gabby PREnriqueta Reason Stop Dose Admin Albuterol/Ipratropium 3 ml 06/23/19 08:32 06/23/19 08:48 Duoneb 3.0-0.5 Mg/3 Ml [facility] 06/23/19 08:33 3 ml ONETIME ONE Administration Albuterol/Ipratropium 3 ml 06/23/19 10:06 06/23/19 10:20 Duoneb 3.0-0.5 Mg/3 Ml [facility] 06/23/19 10:07 3 ml ONETIME ONE Administration Prednisolone 40 mg 06/23/19 09:30 06/23/19 09:33 Orapred 15 Mg/5ml Soln PO 06/23/19 09:31 40 mg ONETIME ONE Administration Prednisone 40 mg 06/23/19 08:32 06/23/19 09:41 Prednisone PO 06/23/19 08:33 Not Given ONETIME ONE - Re-Assessments/Exams Free Text/Narrative Re-Assessment/Exam: 06/23/19 08:41 The patient did not want an IV. I did talk her into letting us get some labs, EKG, CXR, duoneb and some prednisone 40mg by mouth. Her EKG shows atrial-ventricular dual paced rhythm at 70bpm. 06/23/19 11:14 Her WBC was elevated at 14.3. Her glucose is elevated at 142. Her lactic acid is elevated at 2.1. Her troponin is negative. Her BNP is elevated at 5257. Her CXR was read by Dr Berman and it shows findings most likely due to CHF as well as small area of right upper lobe pneumonia. The patient did refuse lab draw until her son got here and then she agreed to it. She needs to be admitted to the hospital but she refuses and she does not want an IV. I was going to give her a shot or rocehin but she is allergic to it. I will give her a shot of clindamycin and I will put her on some levaquin 750mg daily for 5 days. Departure - Departure Time of Disposition: 11:20 Disposition: Home, Self-Care 01 Condition: Good Clinical Impression: Pneumonia Qualifiers: Pneumonia type: due to unspecified organism Laterality: right Lung location: upper lobe of lung Qualified Code(s): J18.9 - Pneumonia, unspecified organism - Discharge Information *PRESCRIPTION DRUG MONITORING PROGRAM REVIEWED*: Not Applicable *COPY OF PRESCRIPTION DRUG MONITORING REPORT IN PATIENT SHANNON: Not Applicable Prescriptions: Levofloxacin [Levaquin] 750 mg PO DAILY #5 tablet Referrals: Bret Torres MD [Primary Care Provider] - 1 Week Forms: ED Department Discharge Additional Instructions: Take your medications as prescribed. Use the breathing treatments. Take the levaquin 750mg daily for 5 days. Please return if you are worse. Sepsis Event Note - Focused Exam Vital Signs: Vital Signs Temp Pulse Resp BP Pulse Ox Pulse Ox 06/23/19 11:10 72 20 148/58 H 95 06/23/19 10:22 98 06/23/19 08:48 92 L 06/23/19 08:23 97.1 F 75 16 144/75 H 93 L Date Exam was Performed: 06/23/19 Time Exam was Performed: 11:14 - My Orders Last 24 Hours: My Active Orders 06/23/19 08:31 Cardiac Monitoring [RC] . DIRECTED EKG Documentation Completion [RC] STAT Oxygen Therapy [RC] PRN 06/23/19 08:32 RT Aerosol Therapy [RC] ASDIRECTED 06/23/19 10:06 RT Aerosol Therapy [RC] ASDIRECTED 06/23/19 10:20 CULTURE BLOOD [BC] Stat 06/23/19 11:13 Clindamycin Phosphate [Cleocin] 300 mg IM ONETIME ONE - Assessment/Plan Last 24 Hours: My Active Orders 06/23/19 08:31 Cardiac Monitoring [RC] . DIRECTED EKG Documentation Completion [RC] STAT Oxygen Therapy [RC] PRN 06/23/19 08:32 RT Aerosol Therapy [RC] ASDIRECTED 06/23/19 10:06 RT Aerosol Therapy [RC] ASDIRECTED 06/23/19 10:20 CULTURE BLOOD [BC] Stat 06/23/19 11:13 Clindamycin Phosphate [Cleocin] 300 mg IM ONETIME ONE
[2019-06-23] MEDS ORDERED: prednisoLONE Soln 15 MG/5 ML UD Cup PO ONE (09:30)
--- NOTE | 2019-06-23 09:31 | CR ---
Chest: Portable view of the chest was obtained. Comparison: Previous chest CT performed on 06/09/19 and chest x-ray of 05/29/19. Heart is enlarged. Tortuous aorta is noted. Pulmonary vessels are mildly congested. Focal density is noted within the right upper lung. Sternotomy is noted. Prosthetic heart valve is noted. Bichamber pacemaker is present. Impression: 1. Findings as described above most likely due to CHF as well as small area of right upper lobe pneumonia. Diagnostic code #3 Study was dictated in [place] [employer] Time
[2019-06-23] MEDS ORDERED: Clindamycin Phosphate 300 MG/2 ML SDV IM ONE (11:13)
[2019-06-23 13:24] VITALS: BP 101/87; PULSE 85
== END 2019-06-23 13:20 | disposition home or self-care (01) ==
LOC: JD.ED 08:08
DX: J18.9 Pneumonia, unspecified organism (principal); J44.9 Chronic obstructive pulmonary disease, unspecified; I11.0 Hypertensive heart disease with heart failure; I50.9 Heart failure, unspecified; I48.91 Unspecified atrial fibrillation; E78.00 Pure hypercholesterolemia, unspecified; K21.9 Gastro-esophageal reflux disease without esophagitis; Z79.899 Other long term (current) drug therapy; Z79.82 Long term (current) use of aspirin; Z88.0 Allergy status to penicillin; Z88.1 Allergy status to other antibiotic agents; Z86.73 Personal history of transient ischemic attack (TIA), and cerebral infarction without residual deficits; Z88.8 Allergy status to other drugs, medicaments and biological substances; E66.9 Obesity, unspecified; F32.9 Major depressive disorder, single episode, unspecified
CPT/HCPCS: 36415; 71045; 80053; 83605; 83880; 84484; 85025; 87040; 93005; 94640; 96372; 99285; J3490; 93010; 99283; J7620-GY